=== PATIENT | female | born 1970 | race Caucasian/White ===

== ENCOUNTER 2020-11-22 14:23 | Emergency (ER) | payer SELFPAY ==
[2020-11-22] MEDS ORDERED: Sodium Chloride 0.9% 1,000 ML IV ONE (14:40)
[2020-11-22] MEDS ORDERED: Ondansetron 4 MG/2 ML SDV IVPUSH ONE (14:40)
--- NOTE | 2020-11-22 15:14 | EDM.PDOC ---
ED HPI GENERAL MEDICAL PROBLEM - General Chief Complaint: Gastrointestinal Problem Stated Complaint: COVID POS UNABLE TO EAT VOMITTING Time Seen by Provider: 11/22/20 14:27 Source of Information: Reports: Patient History Limitations: Reports: No Limitations - History of Present Illness INITIAL COMMENTS - FREE TEXT/NARRATIVE: HISTORY AND PHYSICAL: History of present illness: Patient is a 50-year-old female who presents to the emergency room with complaints of nausea, vomiting and diarrhea over the past 4 to 5 days. Patient was diagnosed with COVID-19 on 11/17/2020 at [facility]. Since that time she states she has not been able to keep anything down and is concerned she is dehydrated. She also has noted left ear pain over the past few hours. Patient denies any fever, chills, headache, change in vision, syncope or near syncope. Denies any chest pain, back pain, shortness of breath or hemoptysis. Denies any abdominal pain, constipation or dysuria. Has not noted any blood in urine or stool. States her whole household has COVID-19, has been quarantining at home. Review of systems: As per history of present illness and below otherwise all systems reviewed and negative. Past medical history: As per history of present illness and as reviewed below otherwise noncontributory. Surgical history: As per history of present illness and as reviewed below otherwise noncontributory. Social history: See social history for further information Family history: As per history of present illness and as reviewed below otherwise noncontributory. Physical exam: General: Well developed and well nourished 50 year old female. Alert and orientated x 3. Nontoxic in appearance and in no acute distress. Vital signs are stable and have been reviewed by me. Nursing notes were reviewed. HEENT: Atraumatic, normocephalic, pupils equal and reactive bilaterally, negative for conjunctival pallor or scleral icterus, mucous membranes moist, left TMs has purulent drainage noted, unable to visualize the TM from the 10:00 to 4 o'clock position which is erythematous. Right TM normal, throat clear, neck supple, nontender, trachea midline. No drooling or trismus noted. No meningeal signs. No hot potato voice noted. Lungs: Clear to auscultation bilaterally. No wheezes, rales, or rhonchi. Chest nontender. Normal work of breathing, no accessory muscles used. Heart: S1S2, regular rate and rhythm without overt murmur, gallops, or rubs. No JVD. No peripheral edema Abdomen: Soft, nondistended, nontender. Normoactive bowel sounds. Negative for masses or costovertebral tenderness. Skin: Intact, warm, dry. No lesions or rashes noted. Hematologic: No petechiae or purpra. Mucosa appropriate color and normal nail bed color and refill. Extremities: Atraumatic, moves all extremities per self without difficulty or deficits, negative for cords or calf pain. Neurovascular unremarkable. Neuro: Awake, alert, oriented. Cranial nerves II through XII unremarkable. Cerebellum unremarkable. Motor and sensory unremarkable throughout. Exam nonfocal. Psychiatric: Mood and affect are appropriate. Normal thought process. Answering questions appropriately. Please note that the patient was seen and evaluated during the 2019 SARS-CoV-2 novel coronavirus pandemic period. Community viral transmission is ongoing at time of this encounter and the emergency department is operating under pandemic response procedures. Medical Decision Making: Patient is a 50-year-old female who presents to the emergency room with complaints of nausea, vomiting and diarrhea with a known positive COVID-19 test. She states she has not been able to keep anything down and is concerned she is dehydrated. We will do basic lab work and give her some IV fluids and Zofran while labs are pending. Chest x-ray is unremarkable. BUN and creatinine are slightly elevated, she did receive IV fluids while here. Vital signs are stable. She would like to be treated for the left otitis media, will give Augmentin. She was able to keep fluids down during the PO challenge. I have talked with the patient about today's findings, in addition to providing specific details for plan of care. Reassessment at the time of disposition demonstrates that the patient is in no acute distress. The patient is stable for discharge, counseling was provided and we discussed in great detail signs and symptoms that would prompt them to return to the Emergency Department. Medication, follow up and supportive care measures were reviewed and discussed. Voices understanding and is agreeable to plan of care. Denies any further questions or concerns at this time. Diagnostics: CBC, CMP, UA, CXR Therapeutics: IV fluids, Zofran Prescription: Augmentin, Zofran Impression: COVID-19 gastroenteritis Otitis media, left Plan: 1. Your chest x-ray and lab work are within normal limits. You do have an ear infection on the left, please take the antibiotic as prescribed. Your prescriptions have been sent to [facility]. Your vital signs and oxygen saturation are well enough that you were able to monitor your symptoms at home. Continue to monitor for trouble breathing, new confusion or inability to arou se, bluish lips or face or any of the other symptoms we discussed -if this occurs please return to the emergency room immediately. 2. Zofran 4 mg, 1 tab every 6 hours as needed for nausea. We have dispensed 2 tabs here that you can take until you are able to get to the pharmacy. Small frequent sips of fluids to prevent dehydration. 3. You can take NyQuil during the evening to help get a restful night sleep. May alternate Tylenol and ibuprofen as needed for pain and fever management. 4. The [facility] department will be calling you and following up with you. The [place] [facility] Hotline phone number , They are open Friday - Friday 7am - 7pm. Follow up with your primary care provider for re-evaluation as directed. Definitive disposition and diagnosis as appropriate pending reevaluation and review of above. Generalized Pain Score (Numeric/FACES): 8 - Related Data Allergies Allergy/AdvReac Type Severity Reaction Status Date / Time duloxetine Allergy Hypertensio Verified 11/22/20 14:46 n gabapentin Allergy Swelling Verified 11/22/20 14:46 povidone-iodine Allergy Swelling Verified 11/22/20 14:46 [From Betadine] pregabalin [From Lyrica] Allergy Swelling Verified 11/22/20 14:46 soap [From Betadine] Allergy Swelling Verified 11/22/20 14:46 Home Meds: Home Meds Amoxicillin/Clavulanate K [Augmentin 875-125 MG] 1 tab PO BID 7 Days #14 tablet 11/22/20 [Rx] Ondansetron [Zofran ODT] 4 mg PO Q6H PRN #8 tab.dis 11/22/20 [Rx] Past Medical History - Past Health History Medical/Surgical History: Denies Medical/Surgical History HEENT History: Reports: Other (See Below) Other HEENT History: wears glasses Cardiovascular History: Reports: None Respiratory History: Reports: Asthma Other Respiratory History: seasonal asthma Genitourinary History: Reports: None 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: Neurological History: Reports: None Psychiatric History: Reports: None Endocrine/Metabolic History: Reports: Obesity/BMI 30+ Hematologic History: Reports: None Immunologic History: Reports: None Oncologic (Cancer) History: Reports: None Dermatologic History: Reports: None - Infectious Disease History Infectious Disease History: Reports: Chicken Pox - Past Surgical History Head Surgeries/Procedures: Reports: None HEENT Surgical History: Reports: Tonsillectomy GI Surgical History: Reports: Cholecystectomy Female Surgical History: Reports: Tubal Ligation Musculoskeletal Surgical History: Reports: Arthroscopic Knee Social & Family History - Family History Family Medical History: No Pertinent Family History - Tobacco Use Tobacco Use Status *Q: Former Tobacco User Years of Tobacco use: 25 Used Tobacco, but Quit: Yes Month/Year Tobacco Last Used: 09/2004 - Caffeine Use Caffeine Use: Reports: Soda - Recreational Drug Use Recreational Drug Use: No ED ROS GENERAL - Review of Systems Review Of Systems: Comprehensive ROS is negative, except as noted in HPI. ED EXAM, GI/ABD - Physical Exam Exam: See Below (See dictation) Course - Vital Signs Last Recorded V/S: Last Vital Signs Temp 97.8 F 11/22/20 14:40 Pulse 87 11/22/20 16:35 Resp 16 11/22/20 16:35 BP 121/78 11/22/20 16:35 Pulse Ox 94 L 11/22/20 16:35 - Orders/Labs/Meds Labs: Laboratory Tests 11/22/20 11/22/20 11/22/20 Range/Units 15:07 15:07 15:07 WBC 7.50 (4.0-11.0) K/uL RBC 5.30 (4.30-5.90) M/uL Hgb 16.9 H (12.0-16.0) g/dL Hct 47.4 H (36.0-46.0) % MCV 89.4 (80.0-98.0) fL MCH 31.9 (27.0-32.0) pg MCHC 35.7 (31.0-37.0) g/dL RDW Std Deviation 41.2 (28.0-62.0) fl RDW Coeff of Noe 13 (11.0-15.0) % Plt Count 131 L (150-400) K/uL MPV 11.60 (7.40-12.00) fL Neut % (Auto) 70.9 (48.0-80.0) % Lymph % (Auto) 22.3 (16.0-40.0) % [place] % (Auto) 6.7 (0.0-15.0) % Eos % (Auto) 0.0 (0.0-7.0) % Baso % (Auto) 0.1 (0.0-1.5) % Neut # (Auto) 5.3 (1.4-5.7) K/uL Lymph # (Auto) 1.7 (0.6-2.4) K/uL [place] # (Auto) 0.5 (0.0-0.8) K/uL Eos # (Auto) 0.0 (0.0-0.7) K/uL Baso # (Auto) 0.0 (0.0-0.1) K/uL Nucleated RBC % 0.0 /100WBC Nucleated RBCs # 0 K/uL Sodium 140 (136-145) mmol/L Potassium 3.5 (3.5-5.1) mmol/L Chloride 102 (98-107) mmol/L Carbon Dioxide 20.6 L (21.0-32.0) mmol/L BUN 29 H (7.0-18.0) mg/dL Creatinine 2.0 H (0.6-1.0) mg/dL Est Cr Clr Drug Dosing 22.85 mL/min Estimated GFR (MDRD) 26.5 ml/min Glucose 111 H (74-106) mg/dL Lactic Acid 1.8 (0.4-2.0) mmol/L Calcium 8.4 L (8.5-10.1) mg/dL Total Bilirubin 0.6 (0.2-1.0) mg/dL AST 36 (15-37) IU/L ALT 27 (14-63) IU/L Alkaline Phosphatase 78 (46-116) U/L Total Protein 7.8 (6.4-8.2) g/dL Albumin 3.6 (3.4-5.0) g/dL Globulin 4.2 H (2.6-4.0) g/dL Albumin/Globulin Ratio 0.9 (0.9-1.6) Lipase 154 (73-393) U/L Meds: Medications Discontinued Medications Generic Name Dose Route Start Last Admin Trade Name Freq PRN Reason Stop Dose Admin Amoxicillin/Clavulanate Potassium 1 tab 11/22/20 17:10 Amoxicillin/Clavulanate K 875-125 Mg Tab PO 11/22/20 17:11 ONETIME ONE Sodium Chloride 1,000 mls @ 999 mls/hr 11/22/20 14:40 11/22/20 15:06 Normal Saline IV 11/22/20 15:40 999 mls/hr STAT ONE Administration Ondansetron HCl 4 mg 11/22/20 14:40 11/22/20 15:07 Ondansetron 4 Mg/2 Ml Sdv IVPUSH 11/22/20 14:41 4 mg ONETIME ONE Administration Ondansetron HCl 8 mg 11/22/20 17:13 Ondansetron 4 Mg Tab.Dis PO 11/22/20 17:14 ONETIME ONE Departure - Departure Time of Disposition: 17:23 Disposition: Home, Self-Care 01 Clinical Impression: Gastroenteritis due to COVID-19 virus Otitis media Qualifiers: Otitis media type: suppurative Chronicity: acute Laterality: left Recurrence: non-recurrent Spontaneous tympanic membrane rupture: without spontaneous rupture Qualified Code(s): H66.002 - Acute suppurative otitis media without spontaneous rupture of ear drum, left ear - Discharge Information Prescriptions: Amoxicillin/Clavulanate K [Augmentin 875-125 MG] 1 tab PO BID 7 Days #14 tablet Ondansetron [Zofran ODT] 4 mg PO Q6H PRN #8 tab.dis PRN Reason: Nausea Referrals: PCP,None [Primary Care Provider] - Forms: ED Department Discharge Additional Instructions: The following information is given to patients seen in the emergency department who are being discharged to home. This information is to outline your options for follow-up care. We provide all patients seen in our emergency department with a follow-up referral. The need for follow-up, as well as the timing and circumstances, are variable depending upon the specifics of your emergency department visit. If you don't have a primary care physician on staff, we will provide you with a referral. We always advise you to contact your personal physician following an emergency department visit to inform them of the circumstance of the visit and for follow-up with them and/or the need for any referrals to a consulting specialist. The emergency department will also refer you to a specialist when appropriate. This referral assures that you have the opportunity for follow-up care with a specialist. All of these measure are taken in an effort to provide you with optimal care, which includes your follow-up. Under all circumstances we always encourage you to contact your private physician who remains a resource for coordinating your care. When calling for follow-up care, please make the office aware that this follow-up is from your recent emergency room visit. If for any reason you are refused follow-up, please contact the [facility] Emergency Department at and asked to speak to the emergency department charge nurse. [facility] [address] [place] [id number] [id number] Thank you for choosing the [facility] emergency department in [place] for your medical needs today. It was a pleasure caring for you. Today you were seen in the emergency department for nausea, vomiting and diarrhea due to COVID-19. 1. Your chest x-ray and lab work are within normal limits. You do have an ear infection on the left, please take the antibiotic as prescribed. Your prescriptions have been sent to [facility]. Your vital signs and oxygen saturation are well enough that you were able to monitor your symptoms at home. Continue to monitor for trouble breathing, new confusion or inability to arouse, bluish lips or face or any of the other symptoms we discussed -if this occurs please return to the emergency room immediately. 2. Zofran 4 mg, 1 tab every 6 hours as needed for nausea. We have dispensed 2 tabs here that you can take until you are able to get to the pharmacy. Small frequent sips of fluids to prevent dehydration. 3. You can take NyQuil during the evening to help get a restful night sleep. May alternate Tylenol and ibuprofen as needed for pain and fever management. 4. The [facility] department will be calling you and following up with you. The [place] [facility] Hotline phone number , They are open Friday - Friday 7am - 7pm. Follow up with your primary care provider for re-evaluation as directed. Sepsis Event Note (ED) - Evaluation Sepsis Screening Result: No Definite Risk - Focused Exam Vital Signs: Vital Signs Temp Pulse Resp BP Pulse Ox 11/22/20 16:35 87 16 121/78 94 L 11/22/20 14:40 97.8 F 108 H 20 124/78 96
--- NOTE | 2020-11-22 15:29 | CR ---
INDICATION: COVID TECHNIQUE: Chest 1 view. COMPARISON: None FINDINGS: Cardiovascular and mediastinum: Heart size and vasculature are normal in caliber and appearance. Mediastinum is within normal limits. Lungs and pleural space: Lungs are clear. No sign of infiltrate or mass. No sign of pleural effusion. No pneumothorax. Bones and soft tissues: No significant findings. IMPRESSION: No definitive infiltrates. Dictated by Sea Mueller MD @ 11/22/2020 3:28:11 PM (Electronically Signed)
[2020-11-22 16:35] VITALS: PULSE 87
[2020-11-22 16:43] LABS: CARBON DIOXIDE,CO2 20.6 mmol/L (21.0-32.0); POTASSIUM,K 3.5 mmol/L (3.5-5.1)
[2020-11-22] MEDS ORDERED: Amoxicillin/Clavulanate K 875-125 MG Tab PO ONE (17:10)
[2020-11-22] MEDS ORDERED: Ondansetron 4 MG Tab.DIS PO ONE (17:13)
[2020-11-22 17:36] VITALS: BP 122/62
== END 2020-11-22 17:37 | disposition home or self-care (01) ==
LOC: MW.ED 14:23
DX: U07.1 COVID-19 (principal); K52.9 Noninfective gastroenteritis and colitis, unspecified; H66.002 Acute suppurative otitis media without spontaneous rupture of ear drum, left ear; J45.909 Unspecified asthma, uncomplicated; E66.9 Obesity, unspecified; Z68.1 Body mass index [BMI] 19.9 or less, adult; Z87.891 Personal history of nicotine dependence; Z88.8 Allergy status to other drugs, medicaments and biological substances
CPT/HCPCS: 36415; 71045; 80053; 83605; 83690; 85025; 96374; 99284; A9270; J2405; J7030

== ENCOUNTER 2020-11-27 16:37 | Inpatient (IN) | payer SELFPAY ==
[2020-11-27] MEDS ORDERED: Sodium Chloride 0.9% 1,000 ML IV ONE (16:47)
[2020-11-27] MEDS ORDERED: Dexamethasone 10 MG/ML SDV IVPUSH ONE (16:48)
[2020-11-27] MEDS ORDERED: Albuterol/Ipratropium 3.0-0.5 MG/3 ML Neb Soln NEB ONE ×3 (16:49)
[2020-11-27] MEDS ORDERED: Magnesium Sulfate (4.06 MEQ/ML) 5 GM/10 ML SDV IV STA (16:53)
[2020-11-27] MEDS ORDERED: WATER IV STA ×2 (16:56)
[2020-11-27] MEDS ORDERED: DEXTROSE 5% IV STA ×2 (16:56)
[2020-11-27] MEDS ORDERED: MAGNESIUM SULFATE IV STA ×2 (16:56)
--- NOTE | 2020-11-27 17:25 | PCM.EKG ---
#1 Interpretation EKG Date: 11/27/20 Time: 16:36 Rhythm: NSR Rate (Beats/Min): 120 [place]: Normal P-Wave: Present QRS: Normal ST-T: Normal QT: Normal Comparison: NA - No Prior EKG EKG Interpretation Comments: Sinus tachycardia with nonspecific T wave inversion
[2020-11-27 17:41] LABS: BLOOD UREA NITROGEN,BUN 20 mg/dL (7.0-18.0); CARBON DIOXIDE,CO2 29.5 mmol/L (21.0-32.0); CHLORIDE,CL 101 mmol/L (98-107); GLUCOSE RANDOM 137 mg/dL (74-106); POTASSIUM,K 3.5 mmol/L (3.5-5.1); SODIUM,NA 143 mmol/L (136-145)
[2020-11-27] MEDS ORDERED: Iopamidol 755 MG/ML 500 ML Multipack Bottle IVPUSH STA (18:18)
--- NOTE | 2020-11-27 18:53 | EDM.PDOC ---
ED HPI GENERAL MEDICAL PROBLEM - General Chief Complaint: Respiratory Problem Stated Complaint: EMS Time Seen by Provider: 11/27/20 16:38 Source of Information: Reports: Patient History Limitations: Reports: No Limitations - History of Present Illness INITIAL COMMENTS - FREE TEXT/NARRATIVE: HISTORY AND PHYSICAL: History of present illness: Patient is a 50-year-old female, with a history of known Covid diagnosis since 11/17/2020, who presents emergency room today with concern of worsening shortness of breath and weakness. Patient states that she has felt bad since her Covid diagnosis but states today she is so weak and short of breath that she cannot take care of herself so called EMS. Patient states that she does have a history of asthma but has not been using her inhalers and does not feel that this will help her. Patient also has a history of obesity. Patient denies fever, chills, chest pain. Denies headache, neck stiff ness, change in vision, syncope, or near syncope. Denies vomiting, abdominal pain, diarrhea, constipation, or dysuria. Has not noted any blood in urine or stool. Review of systems: As per history of present illness and below otherwise all systems reviewed and negative. Past medical history: As per history of present illness and as reviewed below otherwise noncontributory. Surgical history: As per history of present illness and as reviewed below otherwise noncontributory. Social history: See social history for further information Family history: As per history of present illness and as reviewed below otherwise noncontributo ry. Physical exam: General: Patient is alert, oriented. Patient is tachypneic with a respiratory rate of 30, 78% on room air, heart rate 122 upon arrival to the ED, in moderate respiratory distress. HEENT: Atraumatic, normocephalic, pupils equal and reactive bilaterally, negative for conjunctival pallor or scleral icterus, mucous membranes dry, throat clear, neck supple, nontender, trachea midline. No drooling or trismus noted. No meningeal signs. No hot potato voice noted. Lungs: Diffuse wheezing to auscultation throughout all lung [place], breath sounds equal bilaterally, chest nontender. Patient speaking 2-3 words with breathlessness, no stridor, using intercostal retractions and accessory muscle use with moderate respiratory distress. Heart: Tachycardic. Otherwise, S1S2, regular rate and rhythm without overt murmur Abdomen: Soft, nondistended, nontender. Negative for masses or hepatosplenomegaly. Negative for costovertebral tenderness. Pelvis: Stable nontender. Genitourinary: Deferred. Rectal: Deferred. Skin: Intact, warm, dry. No lesions or rashes noted. Extremities: Atraumatic, negative for cords or calf pain. Neurovascular unremarkable. Neuro: Awake, alert, oriented. Cranial nerves II through XII unremarkable. Cerebellum unremarkable. Motor and sensory unremarkable throughout. Exam nonfocal. Notes: Patient is a 50-year-old female, with a known diagnosis of COVID-19 since 11/17/2020, and a history of asthma and obesity, who presents emergency room today secondary to worsening shortness of breath and weakness. Upon arrival to the ED, patient is a moderate respiratory distress with a respiratory rate of 30, toxic with 78% on room air, and tachycardic 122 on exam. Blood pressure stable. Patient is speaking 2-3 word sentences with breathlessness and using accessory muscles and intercostal retractions on exam suggesting moderate respiratory distress. Patient was initially transferred to 6 L nasal cannula and approximately 85%. She was then quickly transitioned to a simple mask and rate at 90%. Patient was then transferred to high flow nasal cannula and satting 96%. Will obtain cardiac evaluation, provide fluid bolus, continuous DuoNeb, Decadron, magnesium given patient's underlying asthma. We will also obtain angiography chest to rule out pulmonary embolism given hypoxia with tachycardia and known COVID-19 diagnosis. Will reassess patient following nebulizers. Upon reevaluation of patient following nebulizer, she does have improvement of her wheezing and her respiratory rate is not 23, she is 97% on high flow nasal cannula, and heart rate has improved to 113. See Dr. Hutchinson's dictation for specific EKG interpretation. However, sinus tachycardia without STEMI. CBC does show a mild leukocytosis of 11.68, hemoglobin and hematocrit mildly elevated at 16.5 and 47.9 suggestive of possible hemoconcentration. ABG does show a metabolic alkalosis with a pH of 7.49, PCO2 normal at 37, bicarb mildly elevated at 28. We will add a salicylate level on due to this. CMP does show a mild elevation of creatinine and BUN at 1.2 and 20 respectively, possible suggestive of dehydration. Glucose mildly elevated at 137. AST elevated in isolation at 46. Troponin negative. Salicylate 0.6 which within normal limits. And CT shows moderately severe COVID-19 pneumonia. No pulmonary embolism. Upon reevaluation of patient, she is much more comfortable on high flow nasal cannula and heart rate has improved to 90 bpm, respiratory rate of 20, and oxygen 96%. I did call and speak to the hospitalist on-call, Dr. Nelson, and thoroughly discussed patient's case. Will admit to inpatient telemetry to Dr. Nelson Voices understanding and is agreeable to plan of care. Denies any further questions or concerns at this time. Diagnostics: EKG, CBC, CMP, ABG, troponin, salicylate, angiography chest, magnesium, phosphate Therapeutics: DuoNeb x3, high flow nasal cannula, Decadron, magnesium IV, remdesivir Impression: COVID-19 viral infection with hypoxia Acute respiratory failure, on high flow nasal cannula Plan: Admit to inpatient to Dr. Nelson on telemetry Definitive disposition and diagnosis as appropriate pending reevaluation and review of above. generalized Pain Score (Numeric/FACES): 10 - Related Data Allergies Allergy/AdvReac Type Severity Reaction Status Date / Time duloxetine Allergy Hypertensio Verified 11/22/20 14:46 n gabapentin Allergy Swelling Verified 11/22/20 14:46 povidone-iodine Allergy Swelling Verified 11/22/20 14:46 [From Betadine] pregabalin [From Lyrica] Allergy Swelling Verified 11/22/20 14:46 soap [From Betadine] Allergy Swelling Verified 11/22/20 14:46 Home Meds: Home Meds Amoxicillin/Clavulanate K [Augmentin 875-125 MG] 1 tab PO BID 7 Days #14 tablet 11/22/20 [Rx] Ondansetron [Zofran ODT] 4 mg PO Q6H PRN #8 tab.dis 11/22/20 [Rx] Past Medical History - Past Health History Medical/Surgical History: Denies Medical/Surgical History HEENT History: Reports: Other (See Below) Other HEENT History: wears glasses Cardiovascular History: Reports: None Respiratory History: Reports: Asthma Other Respiratory History: seasonal asthma Genitourinary History: Reports: None [employer] History: Reports: Neurological History: Reports: None Psychiatric History: Reports: None Endocrine/Metabolic History: Reports: Obesity/BMI 30+ Hematologic History: Reports: None Immunologic History: Reports: None Oncologic (Cancer) History: Reports: None Dermatologic History: Reports: None - Infectious Disease History Infectious Disease History: Reports: Chicken Pox, Novel Coronavirus - Past Surgical History Head Surgeries/Procedures: Reports: None HEENT Surgical History: Reports: Tonsillectomy GI Surgical History: Reports: Cholecystectomy Female Surgical History: Reports: Tubal Ligation Musculoskeletal Surgical History: Reports: Arthroscopic Knee Social & Family History - Family History Family Medical History: No Pertinent Family History - Caffeine Use Caffeine Use: Reports: Soda ED ROS GENERAL - Review of Systems Review Of Systems: Comprehensive ROS is negative, except as noted in HPI. ED EXAM, GENERAL - Physical Exam Exam: See Below (see dictation) Course - Vital Signs Last Recorded V/S: Last Vital Signs Temp 97.3 F 11/27/20 16:37 Pulse 96 11/27/20 19:23 Resp 23 H 11/27/20 18:42 BP 165/97 H 11/27/20 19:23 Pulse Ox 94 L 11/27/20 19:23 - Orders/Labs/Meds Orders: Active Orders 24 hr Category Date Time Status Admission Status [Patient Status] [ADT] Stat ADT 11/27/20 19:51 Active Cardiac Monitoring [RC] . DIRECTED Care 11/27/20 16:47 Active RT Aerosol Therapy [RC] ASDIRECTED Care 11/27/20 16:49 Active RT Aerosol Therapy [RC] ASDIRECTED Care 11/27/20 16:49 Active RT Aerosol Therapy [RC] ASDIRECTED Care 11/27/20 16:49 Active UA RFX PHILLIP AND CULT IF INDIC [URIN] Stat Lab 11/27/20 19:45 Received Labs: Laboratory Tests 11/27/20 11/27/20 11/27/20 Range/Units 16:55 16:55 16:55 WBC 11.68 H (4.0-11.0) K/uL RBC 5.34 (4.30-5.90) M/uL Hgb 16.5 H (12.0-16.0) g/dL Hct 47.9 H (36.0-46.0) % MCV 89.7 (80.0-98.0) fL MCH 30.9 (27.0-32.0) pg MCHC 34.4 (31.0-37.0) g/dL RDW Std Deviation 39.7 (28.0-62.0) fl RDW Coeff of Noe 12 (11.0-15.0) % Plt Count 311 (150-400) K/uL MPV 10.10 (7.40-12.00) fL Neut % (Auto) 83.1 H (48.0-80.0) % Lymph % (Auto) 11.4 L (16.0-40.0) % [place] % (Auto) 5.3 (0.0-15.0) % Eos % (Auto) 0.0 (0.0-7.0) % Baso % (Auto) 0.2 (0.0-1.5) % Neut # (Auto) 9.7 H (1.4-5.7) K/uL Lymph # (Auto) 1.3 (0.6-2.4) K/uL [place] # (Auto) 0.6 (0.0-0.8) K/uL Eos # (Auto) 0.0 (0.0-0.7) K/uL Baso # (Auto) 0.0 (0.0-0.1) K/uL ABG pH (7.35-7.45) ABG pCO2 (35-45) mmHG ABG pO2 (80-105) mmHG ABG HCO3 (22-26) mEq/L ABG Total CO2 (23-27) mmol/L ABG Base Excess (-2.0-3.0) Sodium 143 (136-145) mmol/L Potassium 3.5 (3.5-5.1) mmol/L Chloride 101 (98-107) mmol/L Carbon Dioxide 29.5 (21.0-32.0) mmol/L BUN 20 H (7.0-18.0) mg/dL Creatinine 1.2 H (0.6-1.0) mg/dL Est Cr Clr Drug Dosing TNP Estimated GFR (MDRD) 47.7 ml/min Glucose 137 H (74-106) mg/dL Calcium 8.2 L (8.5-10.1) mg/dL Phosphorus (2.6-4.7) mg/dL Magnesium (1.8-2.4) mg/dL Total Bilirubin 0.7 (0.2-1.0) mg/dL AST 46 H (15-37) IU/L ALT 25 (14-63) IU/L Alkaline Phosphatase 81 (46-116) U/L Troponin I < 0.050 (0.000-0.056) ng/mL Total Protein 7.9 (6.4-8.2) g/dL Albumin 3.0 L (3.4-5.0) g/dL Globulin 4.9 H (2.6-4.0) g/dL Albumin/Globulin Ratio 0.6 L (0.9-1.6) Salicylates 0.6 (0-20) mg/dL 11/27/20 11/27/20 Range/Units 17:03 18:55 WBC (4.0-11.0) K/uL RBC (4.30-5.90) M/uL Hgb (12.0-16.0) g/dL Hct (36.0-46.0) % MCV (80.0-98.0) fL MCH (27.0-32.0) pg MCHC (31.0-37.0) g/dL RDW Std Deviation (28.0-62.0) fl RDW Coeff of Noe (11.0-15.0) % Plt Count (150-400) K/uL MPV (7.40-12.00) fL Neut % (Auto) (48.0-80.0) % Lymph % (Auto) (16.0-40.0) % [place] % (Auto) (0.0-15.0) % Eos % (Auto) (0.0-7.0) % Baso % (Auto) (0.0-1.5) % Neut # (Auto) (1.4-5.7) K/uL Lymph # (Auto) (0.6-2.4) K/uL [place] # (Auto) (0.0-0.8) K/uL Eos # (Auto) (0.0-0.7) K/uL Baso # (Auto) (0.0-0.1) K/uL ABG pH 7.49 H (7.35-7.45) ABG pCO2 37 (35-45) mmHG ABG pO2 59 L (80-105) mmHG ABG HCO3 28 H (22-26) mEq/L ABG Total CO2 23.7 (23-27) mmol/L ABG Base Excess 4.5 H (-2.0-3.0) Sodium (136-145) mmol/L Potassium (3.5-5.1) mmol/L Chloride (98-107) mmol/L Carbon Dioxide (21.0-32.0) mmol/L BUN (7.0-18.0) mg/dL Creatinine (0.6-1.0) mg/dL Est Cr Clr Drug Dosing Estimated GFR (MDRD) ml/min Glucose (74-106) mg/dL Calcium (8.5-10.1) mg/dL Phosphorus 3.3 (2.6-4.7) mg/dL Magnesium 2.2 (1.8-2.4) mg/dL Total Bilirubin (0.2-1.0) mg/dL AST (15-37) IU/L ALT (14-63) IU/L Alkaline Phosphatase (46-116) U/L Troponin I (0.000-0.056) ng/mL Total Protein (6.4-8.2) g/dL Albumin (3.4-5.0) g/dL Globulin (2.6-4.0) g/dL Albumin/Globulin Ratio (0.9-1.6) Salicylates (0-20) mg/dL Meds: Medications Discontinued Medications Generic Name Dose Route Start Last Admin Trade Name Freq PRN Reason Stop Dose Admin Albuterol/Ipratropium 3 ml 11/27/20 16:49 11/27/20 16:59 Albuterol/Ipratropium 3.0-0.5 Mg/3 Ml Neb Soln NEB 11/27/20 16:50 3 ml ONETIME ONE Administration Albuterol/Ipratropium 3 ml 11/27/20 16:49 11/27/20 16:59 Albuterol/Ipratropium 3.0-0.5 Mg/3 Ml Neb Soln NEB 11/27/20 16:50 3 ml ONETIME ONE Administration Albuterol/Ipratropium 3 ml 11/27/20 16:49 11/27/20 16:59 Albuterol/Ipratropium 3.0-0.5 Mg/3 Ml Neb Soln NEB 11/27/20 16:50 3 ml ONETIME ONE Administration Dexamethasone 10 mg 11/27/20 16:48 11/27/20 17:09 Dexamethasone 10 Mg/Ml Sdv IVPUSH 11/27/20 16:49 10 mg ONETIME ONE Administration Sodium Chloride 1,000 mls @ 999 mls/hr 11/27/20 16:47 11/27/20 16:58 Normal Saline IV 11/27/20 17:47 999 mls/hr BOLUS ONE Administration Magnesium Sulfate 3 gm/ 106 mls @ 212 mls/hr 11/27/20 16:56 11/27/20 17:13 Dextrose/Water IV 11/27/20 17:25 212 mls/hr STAT STA Administration Remdesivir 200 mg/ Sodium 250 mls @ 250 mls/hr 11/27/20 19:50 Chloride IV 11/27/20 19:51 ONETIME ONE Iopamidol 100 ml 11/27/20 18:18 Iopamidol 755 Mg/Ml 500 Ml Multipack Bottle IVPUSH 11/27/20 18:19 ONETIME STA Departure - Departure Time of Disposition: 20:03 Disposition: Admitted As Inpatient 67 Clinical Impression: COVID-19 virus infection, Hypoxia Acute respiratory failure Qualifiers: Respiratory failure complication: hypoxia Qualified Code(s): J96.01 - Acute respiratory failure with hypoxia - Discharge Information Forms: ED Department Discharge Sepsis Event Note (ED) - Evaluation Sepsis Screening Result: No Definite Risk - Focused Exam Vital Signs: Vital Signs Temp Pulse Resp BP Pulse Ox 11/27/20 19:23 96 165/97 H 94 L 11/27/20 18:59 109 H 143/74 H 97 11/27/20 18:42 113 H 23 H 143/74 H 95 11/27/20 18:20 114 H 93 L 11/27/20 17:04 116 H 130/85 92 L 11/27/20 16:37 97.3 F 122 H 30 H 130/85 78 L - My Orders Last 24 Hours: My Active Orders 11/27/20 16:47 Cardiac Monitoring [RC] . DIRECTED 11/27/20 16:49 RT Aerosol Therapy [RC] ASDIRECTED RT Aerosol Therapy [RC] ASDIRECTED RT Aerosol Therapy [RC] ASDIRECTED 11/27/20 19:45 UA RFX PHILLIP AND CULT IF INDIC [URIN] Stat 11/27/20 19:51 Admission Status [Patient Status] [ADT] Stat - Assessment/Plan Last 24 Hours: My Active Orders 11/27/20 16:47 Cardiac Monitoring [RC] . DIRECTED 11/27/20 16:49 RT Aerosol Therapy [RC] ASDIRECTED RT Aerosol Therapy [RC] ASDIRECTED RT Aerosol Therapy [RC] ASDIRECTED 11/27/20 19:45 UA RFX PHILLIP AND CULT IF INDIC [URIN] Stat 11/27/20 19:51 Admission Status [Patient Status] [ADT] Stat
--- NOTE | 2020-11-27 19:29 | CT ---
CT CHEST WITH CONTRAST TECHNIQUE: Multidetector CT imaging was performed through the chest following intravenous contrast administration using 100 mL Isovue 370. Coronal and sagittal reconstructions were generated. COMPARISON: None. FINDINGS: Lungs and airways: Multiple scattered areas of patchy ground-glass opacity and consolidation throughout both lungs, consistent with moderately severe COVID-19 pneumonia. Central airways are patent. Pleura and pleural spaces: No pleural effusions or pneumothorax. Heart and mediastinum: Normal heart size. No significant pericardial effusion. A few mildly enlarged mediastinal and right hilar lymph nodes, likely reactive. Vascular structures: No filling defects in the pulmonary arterial tree to suggest pulmonary emboli. Normal caliber thoracic aorta. Chest wall and axillae: No mass or axillary lymphadenopathy. Osseous structures: Normal for age. No acute fractures identified. Upper abdomen: Status post cholecystectomy. IMPRESSION: 1. Moderately severe COVID-19 pneumonia. 2. No pulmonary emboli identified. LUIS ALBERTO ESTRADA MD [facility] Dictated by Glenroy Estrada MD @ 11/27/2020 7:24:20 PM Please note that all CT scans at this facility use dose modulation, iterative reconstruction, and/or weight-based dosing when appropriate to reduce radiation dose to as low as reasonably achievable. Dictated by: Glenroy Estrada MD @ 11/27/2020 19:27:35 (Electronically Signed)
[2020-11-27] MEDS ORDERED: REMDESIVIR 200 MG in Sodium Chloride 0.9% 250 ML IV ONE (19:50)
--- NOTE | 2020-11-27 23:57 | PCM.HP.2 ---
H&P History of Present Illness - General Date of Service: 11/28/20 Admit Problem/Dx: Admission Diagnosis/Problem Admission Diagnosis/Problem Hypoxia - History of Present Illness Initial Comments - Free Text/Narative: 50 yo female with pmh of asthma who tested poasitive for COVID on November 17. She reports increasing shortness of breath, cough, chest congestion, diarrhea and nausea. She was noted to be satting mid 70s on room air. She was placed on Heated high flow to keep sats above 90%. CT angiogram reported moderately severe COVID pneumonia and no PE. generalized Pain Score (Numeric/FACES): 10 - Related Data Allergies/Adverse Reactions: Allergies Allergy/AdvReac Type Severity Reaction Status Date / Time duloxetine Allergy Hypertensio Verified 11/27/20 23:31 n gabapentin Allergy Swelling Verified 11/27/20 23:31 povidone-iodine Allergy Swelling Verified 11/27/20 23:31 [From Betadine] pregabalin [From Lyrica] Allergy Swelling Verified 11/27/20 23:31 soap [From Betadine] Allergy Swelling Verified 11/27/20 23:31 Home Medications: Home Meds Amoxicillin/Clavulanate K [Augmentin 875-125 MG] 1 tab PO BID 7 Days #14 tablet 11/22/20 [Rx] Ondansetron [Zofran ODT] 4 mg PO Q6H PRN #8 tab.dis 11/22/20 [Rx] Past Medical History - Past Health History Medical/Surgical History: Denies Medical/Surgical History HEENT History: Reports: Other (See Below) Other HEENT History: wears glasses Cardiovascular History: Reports: None Respiratory History: Reports: Asthma Other Respiratory History: seasonal asthma Genitourinary History: Reports: None 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: Neurological History: Reports: None Psychiatric History: Reports: None Endocrine/Metabolic History: Reports: Obesity/BMI 30+ Hematologic History: Reports: None Immunologic History: Reports: None Oncologic (Cancer) History: Reports: None Dermatologic History: Reports: None - Infectious Disease History Infectious Disease History: Reports: Chicken Pox, Novel Coronavirus - Past Surgical History Head Surgeries/Procedures: Reports: None HEENT Surgical History: Reports: Tonsillectomy GI Surgical History: Reports: Cholecystectomy Female Surgical History: Reports: Tubal Ligation Musculoskeletal Surgical History: Reports: Arthroscopic Knee Social & Family History - Family History Family Medical History: No Pertinent Family History - Tobacco Use Tobacco Use Status *Q: Never Tobacco User - Caffeine Use Caffeine Use: Reports: Soda - Recreational Drug Use Recreational Drug Use: No H&P Review of Systems - Review of Systems: Review Of Systems: Comprehensive ROS is negative, except as noted in HPI. Exam - Exam Exam: See Below - Vital Signs Vital Signs: Last Vital Signs Temp 36.9 C 11/27/20 22:00 Pulse 90 11/27/20 22:00 Resp 23 H 11/27/20 22:00 BP 110/57 L 11/27/20 22:00 Pulse Ox 91 L 11/27/20 22:00 Weight: 92.17 kg - Exam General: Alert, Oriented HEENT: Mucosa Moist & [place] Lungs: Normal Respiratory Effort, Rhonchi Cardiovascular: Regular Rate, Regular Rhythm GI/Abdominal Exam: Normal Bowel Sounds, Soft, Non-Tender Extremities: Non-Tender, No Pedal Edema Skin: Warm, Dry, Intact Neurological: No: Focal Deficit - Patient Data Lab Results Last 24 hrs: Laboratory Results - last 24 hr 11/27/20 11/27/20 11/27/20 Range/Units 16:55 16:55 16:55 WBC 11.68 H (4.0-11.0) K/uL RBC 5.34 (4.30-5.90) M/uL Hgb 16.5 H (12.0-16.0) g/dL Hct 47.9 H (36.0-46.0) % MCV 89.7 (80.0-98.0) fL MCH 30.9 (27.0-32.0) pg MCHC 34.4 (31.0-37.0) g/dL RDW Std Deviation 39.7 (28.0-62.0) fl RDW Coeff of Noe 12 (11.0-15.0) % Plt Count 311 (150-400) K/uL MPV 10.10 (7.40-12.00) fL Neut % (Auto) 83.1 H (48.0-80.0) % Lymph % (Auto) 11.4 L (16.0-40.0) % [place] % (Auto) 5.3 (0.0-15.0) % Eos % (Auto) 0.0 (0.0-7.0) % Baso % (Auto) 0.2 (0.0-1.5) % Neut # (Auto) 9.7 H (1.4-5.7) K/uL Lymph # (Auto) 1.3 (0.6-2.4) K/uL [place] # (Auto) 0.6 (0.0-0.8) K/uL Eos # (Auto) 0.0 (0.0-0.7) K/uL Baso # (Auto) 0.0 (0.0-0.1) K/uL ABG pH (7.35-7.45) ABG pCO2 (35-45) mmHG ABG pO2 (80-105) mmHG ABG HCO3 (22-26) mEq/L ABG Total CO2 (23-27) mmol/L ABG Base Excess (-2.0-3.0) Sodium 143 (136-145) mmol/L Potassium 3.5 (3.5-5.1) mmol/L Chloride 101 (98-107) mmol/L Carbon Dioxide 29.5 (21.0-32.0) mmol/L BUN 20 H (7.0-18.0) mg/dL Creatinine 1.2 H (0.6-1.0) mg/dL Est Cr Clr Drug Dosing TNP Estimated GFR (MDRD) 47.7 ml/min Glucose 137 H (74-106) mg/dL Calcium 8.2 L (8.5-10.1) mg/dL Phosphorus (2.6-4.7) mg/dL Magnesium (1.8-2.4) mg/dL Total Bilirubin 0.7 (0.2-1.0) mg/dL AST 46 H (15-37) IU/L ALT 25 (14-63) IU/L Alkaline Phosphatase 81 (46-116) U/L Troponin I < 0.050 (0.000-0.056) ng/mL C-Reactive Protein (0.00-0.90) mg/dL Total Protein 7.9 (6.4-8.2) g/dL Albumin 3.0 L (3.4-5.0) g/dL Globulin 4.9 H (2.6-4.0) g/dL Albumin/Globulin Ratio 0.6 L (0.9-1.6) Urine Color Urine Appearance Urine pH (5.0-8.0) Ur Specific [place] (1.001-1.035) Urine Protein (NEGATIVE) mg/dL Urine Glucose (UA) (NEGATIVE) mg/dL Urine Ketones (NEGATIVE) mg/dL Urine Occult Blood (NEGATIVE) Urine Nitrite (NEGATIVE) Urine Bilirubin (NEGATIVE) Urine Urobilinogen (<2.0) EU/dL Ur Leukocyte Esterase (NEGATIVE) Urine RBC (0-2/HPF) Urine WBC (0-5/HPF) Ur Epithelial Cells (NONE-FEW) Urine Bacteria (NEGATIVE) Salicylates 0.6 (0-20) mg/dL 11/27/20 11/27/20 11/27/20 Range/Units 17:03 18:55 18:58 WBC (4.0-11.0) K/uL RBC (4.30-5.90) M/uL Hgb (12.0-16.0) g/dL Hct (36.0-46.0) % MCV (80.0-98.0) fL MCH (27.0-32.0) pg MCHC (31.0-37.0) g/dL RDW Std Deviation (28.0-62.0) fl RDW Coeff of Noe (11.0-15.0) % Plt Count (150-400) K/uL MPV (7.40-12.00) fL Neut % (Auto) (48.0-80.0) % Lymph % (Auto) (16.0-40.0) % [place] % (Auto) (0.0-15.0) % Eos % (Auto) (0.0-7.0) % Baso % (Auto) (0.0-1.5) % Neut # (Auto) (1.4-5.7) K/uL Lymph # (Auto) (0.6-2.4) K/uL [place] # (Auto) (0.0-0.8) K/uL Eos # (Auto) (0.0-0.7) K/uL Baso # (Auto) (0.0-0.1) K/uL ABG pH 7.49 H (7.35-7.45) ABG pCO2 37 (35-45) mmHG ABG pO2 59 L (80-105) mmHG ABG HCO3 28 H (22-26) mEq/L ABG Total CO2 23.7 (23-27) mmol/L ABG Base Excess 4.5 H (-2.0-3.0) Sodium (136-145) mmol/L Potassium (3.5-5.1) mmol/L Chloride (98-107) mmol/L Carbon Dioxide (21.0-32.0) mmol/L BUN (7.0-18.0) mg/dL Creatinine (0.6-1.0) mg/dL Est Cr Clr Drug Dosing Estimated GFR (MDRD) ml/min Glucose (74-106) mg/dL Calcium (8.5-10.1) mg/dL Phosphorus 3.3 (2.6-4.7) mg/dL Magnesium 2.2 (1.8-2.4) mg/dL Total Bilirubin (0.2-1.0) mg/dL AST (15-37) IU/L ALT (14-63) IU/L Alkaline Phosphatase (46-116) U/L Troponin I (0.000-0.056) ng/mL C-Reactive Protein 14.30 H (0.00-0.90) mg/dL Total Protein (6.4-8.2) g/dL Albumin (3.4-5.0) g/dL Globulin (2.6-4.0) g/dL Albumin/Globulin Ratio (0.9-1.6) Urine Color Urine Appearance Urine pH (5.0-8.0) Ur Specific [place] (1.001-1.035) Urine Protein (NEGATIVE) mg/dL Urine Glucose (UA) (NEGATIVE) mg/dL Urine Ketones (NEGATIVE) mg/dL Urine Occult Blood (NEGATIVE) Urine Nitrite (NEGATIVE) Urine Bilirubin (NEGATIVE) Urine Urobilinogen (<2.0) EU/dL Ur Leukocyte Esterase (NEGATIVE) Urine RBC (0-2/HPF) Urine WBC (0-5/HPF) Ur Epithelial Cells (NONE-FEW) Urine Bacteria (NEGATIVE) Salicylates (0-20) mg/dL 11/27/20 Range/Units 19:45 WBC (4.0-11.0) K/uL RBC (4.30-5.90) M/uL Hgb (12.0-16.0) g/dL Hct (36.0-46.0) % MCV (80.0-98.0) fL MCH (27.0-32.0) pg MCHC (31.0-37.0) g/dL RDW Std Deviation (28.0-62.0) fl RDW Coeff of Noe (11.0-15.0) % Plt Count (150-400) K/uL MPV (7.40-12.00) fL Neut % (Auto) (48.0-80.0) % Lymph % (Auto) (16.0-40.0) % [place] % (Auto) (0.0-15.0) % Eos % (Auto) (0.0-7.0) % Baso % (Auto) (0.0-1.5) % Neut # (Auto) (1.4-5.7) K/uL Lymph # (Auto) (0.6-2.4) K/uL [place] # (Auto) (0.0-0.8) K/uL Eos # (Auto) (0.0-0.7) K/uL Baso # (Auto) (0.0-0.1) K/uL ABG pH (7.35-7.45) ABG pCO2 (35-45) mmHG ABG pO2 (80-105) mmHG ABG HCO3 (22-26) mEq/L ABG Total CO2 (23-27) mmol/L ABG Base Excess (-2.0-3.0) Sodium (136-145) mmol/L Potassium (3.5-5.1) mmol/L Chloride (98-107) mmol/L Carbon Dioxide (21.0-32.0) mmol/L BUN (7.0-18.0) mg/dL Creatinine (0.6-1.0) mg/dL Est Cr Clr Drug Dosing Estimated GFR (MDRD) ml/min Glucose (74-106) mg/dL Calcium (8.5-10.1) mg/dL Phosphorus (2.6-4.7) mg/dL Magnesium (1.8-2.4) mg/dL Total Bilirubin (0.2-1.0) mg/dL AST (15-37) IU/L ALT (14-63) IU/L Alkaline Phosphatase (46-116) U/L Troponin I (0.000-0.056) ng/mL C-Reactive Protein (0.00-0.90) mg/dL Total Protein (6.4-8.2) g/dL Albumin (3.4-5.0) g/dL Globulin (2.6-4.0) g/dL Albumin/Globulin Ratio (0.9-1.6) Urine Color YELLOW Urine Appearance CLEAR Urine pH 6.0 (5.0-8.0) Ur Specific [place] 1.010 (1.001-1.035) Urine Protein TRACE H (NEGATIVE) mg/dL Urine Glucose (UA) NEGATIVE (NEGATIVE) mg/dL Urine Ketones NEGATIVE (NEGATIVE) mg/dL Urine Occult Blood TRACE-INTACT H (NEGATIVE) Urine Nitrite NEGATIVE (NEGATIVE) Urine Bilirubin NEGATIVE (NEGATIVE) Urine Urobilinogen 1.0 (<2.0) EU/dL Ur Leukocyte Esterase SMALL H (NEGATIVE) Urine RBC 1-3 (0-2/HPF) Urine WBC 0-3 (0-5/HPF) Ur Epithelial Cells FEW (NONE-FEW) Urine Bacteria FEW (NEGATIVE) Salicylates (0-20) mg/dL Result Diagrams: 11/27/20 16:55 11/27/20 16:55 Sepsis Event Note - Evaluation Sepsis Screening Result: No Definite Risk - Focused Exam Vital Signs: Vital Signs Temp Pulse Resp BP Pulse Ox 11/27/20 22:00 36.9 C 90 23 H 110/57 L 91 L 11/27/20 20:38 36.1 C 100 22 H 141/78 H 93 L 11/27/20 19:23 96 165/97 H 94 L 11/27/20 18:59 109 H 143/74 H 97 11/27/20 18:42 113 H 23 H 143/74 H 95 11/27/20 18:20 114 H 93 L 11/27/20 17:04 116 H 130/85 92 L 11/27/20 16:37 36.3 C 122 H 30 H 130/85 78 L Problem List Initiated/Reviewed/Updated: Yes Orders Last 24hrs: Active Orders 24 hr Category Date Time Status Admission Status [Patient Status] [ADT] Stat ADT 11/27/20 19:51 Active Cardiac Monitoring [RC] Q8HR Care 11/27/20 16:47 Active RT Aerosol Therapy [RC] ASDIRECTED Care 11/27/20 16:49 Active RT Aerosol Therapy [RC] ASDIRECTED Care 11/27/20 16:49 Active RT Aerosol Therapy [RC] ASDIRECTED Care 11/27/20 16:49 Active CULTURE URINE [MREF] Stat Lab 11/27/20 19:45 Received Assessment/Plan Comment:: 50 yo female admitted for acute hypoxic respiratory failure from COVID-19 pneum onia Hypoxia: will continue heated high flow, titrate as needed COVID-19: will treat with remdesivir, dexamethasone, barcitinib, and lovenox for DVT prophylaxis
[2020-11-28] MEDS ORDERED: Albuterol/Ipratropium 3.0-0.5 MG/3 ML Neb Soln NEB PRN (00:43)
[2020-11-28] MEDS: Enoxaparin 40 MG/0.4 ML Syringe SUBCUT SCH ×2 (00:50→20:23)
[2020-11-28 06:44] LABS: CARBON DIOXIDE,CO2 27.5 mmol/L (21.0-32.0); POTASSIUM,K 3.2 mmol/L (3.5-5.1)
--- NOTE | 2020-11-28 10:06 | PCM.PN ---
- General Info Date of Service: 11/28/20 - Review of Systems Systems Review Comment:: did not sleep well last night, reports shortness of breath and cough - Patient Data Vitals - Most Recent: Last Vital Signs Temp 35.7 C L 11/28/20 07:00 Pulse 88 11/28/20 07:00 Resp 18 11/28/20 07:00 BP 120/72 11/28/20 07:00 Pulse Ox 89 L 11/28/20 07:00 Weight - Most Recent: 92.17 kg I&O - Last 24 Hours: Intake & Output 11/27/20 11/28/20 11/28/20 22:59 06:59 14:59 Intake Total 500 Output Total 650 Balance -150 Lab Results Last 24 Hours: Laboratory Results - last 24 hr 11/27/20 11/27/20 11/27/20 Range/Units 16:55 16:55 16:55 WBC 11.68 H (4.0-11.0) K/uL RBC 5.34 (4.30-5.90) M/uL Hgb 16.5 H (12.0-16.0) g/dL Hct 47.9 H (36.0-46.0) % MCV 89.7 (80.0-98.0) fL MCH 30.9 (27.0-32.0) pg MCHC 34.4 (31.0-37.0) g/dL RDW Std Deviation 39.7 (28.0-62.0) fl RDW Coeff of Noe 12 (11.0-15.0) % Plt Count 311 (150-400) K/uL MPV 10.10 (7.40-12.00) fL Neut % (Auto) 83.1 H (48.0-80.0) % Lymph % (Auto) 11.4 L (16.0-40.0) % Cache % (Auto) 5.3 (0.0-15.0) % Eos % (Auto) 0.0 (0.0-7.0) % Baso % (Auto) 0.2 (0.0-1.5) % Neut # (Auto) 9.7 H (1.4-5.7) K/uL Lymph # (Auto) 1.3 (0.6-2.4) K/uL Cache # (Auto) 0.6 (0.0-0.8) K/uL Eos # (Auto) 0.0 (0.0-0.7) K/uL Baso # (Auto) 0.0 (0.0-0.1) K/uL Add Manual Diff Neutrophils % (Manual) (48.0-80.0) % Band Neutrophils % % Lymphocytes % (Manual) (16.0-40.0) % Monocytes % (Manual) (0.0-15.0) % Absolute Seg Neuts (1.4-5.7) Band Neutrophils # Lymphocytes # (Manual) (0.6-2.4) Monocytes # (Manual) (0.0-0.8) ABG pH (7.35-7.45) ABG pCO2 (35-45) mmHG ABG pO2 (80-105) mmHG ABG HCO3 (22-26) mEq/L ABG Total CO2 (23-27) mmol/L ABG Base Excess (-2.0-3.0) Sodium 143 (136-145) mmol/L Potassium 3.5 (3.5-5.1) mmol/L Chloride 101 (98-107) mmol/L Carbon Dioxide 29.5 (21.0-32.0) mmol/L BUN 20 H (7.0-18.0) mg/dL Creatinine 1.2 H (0.6-1.0) mg/dL Est Cr Clr Drug Dosing TNP Estimated GFR (MDRD) 47.7 ml/min Glucose 137 H (74-106) mg/dL Calcium 8.2 L (8.5-10.1) mg/dL Phosphorus (2.6-4.7) mg/dL Magnesium (1.8-2.4) mg/dL Total Bilirubin 0.7 (0.2-1.0) mg/dL AST 46 H (15-37) IU/L ALT 25 (14-63) IU/L Alkaline Phosphatase 81 (46-116) U/L Troponin I < 0.050 (0.000-0.056) ng/mL C-Reactive Protein (0.00-0.90) mg/dL Total Protein 7.9 (6.4-8.2) g/dL Albumin 3.0 L (3.4-5.0) g/dL Globulin 4.9 H (2.6-4.0) g/dL Albumin/Globulin Ratio 0.6 L (0.9-1.6) Urine Color Urine Appearance Urine pH (5.0-8.0) Ur Specific [place] (1.001-1.035) Urine Protein (NEGATIVE) mg/dL Urine Glucose (UA) (NEGATIVE) mg/dL Urine Ketones (NEGATIVE) mg/dL Urine Occult Blood (NEGATIVE) Urine Nitrite (NEGATIVE) Urine Bilirubin (NEGATIVE) Urine Urobilinogen (<2.0) EU/dL Ur Leukocyte Esterase (NEGATIVE) Urine RBC (0-2/HPF) Urine WBC (0-5/HPF) Ur Epithelial Cells (NONE-FEW) Urine Bacteria (NEGATIVE) Salicylates 0.6 (0-20) mg/dL 11/27/20 11/27/20 11/27/20 Range/Units 17:03 18:55 18:58 WBC (4.0-11.0) K/uL RBC (4.30-5.90) M/uL Hgb (12.0-16.0) g/dL Hct (36.0-46.0) % MCV (80.0-98.0) fL MCH (27.0-32.0) pg MCHC (31.0-37.0) g/dL RDW Std Deviation (28.0-62.0) fl RDW Coeff of Noe (11.0-15.0) % Plt Count (150-400) K/uL MPV (7.40-12.00) fL Neut % (Auto) (48.0-80.0) % Lymph % (Auto) (16.0-40.0) % Cache % (Auto) (0.0-15.0) % Eos % (Auto) (0.0-7.0) % Baso % (Auto) (0.0-1.5) % Neut # (Auto) (1.4-5.7) K/uL Lymph # (Auto) (0.6-2.4) K/uL [place] # (Auto) (0.0-0.8) K/uL Eos # (Auto) (0.0-0.7) K/uL Baso # (Auto) (0.0-0.1) K/uL Add Manual Diff Neutrophils % (Manual) (48.0-80.0) % Band Neutrophils % % Lymphocytes % (Manual) (16.0-40.0) % Monocytes % (Manual) (0.0-15.0) % Absolute Seg Neuts (1.4-5.7) Band Neutrophils # Lymphocytes # (Manual) (0.6-2.4) Monocytes # (Manual) (0.0-0.8) ABG pH 7.49 H (7.35-7.45) ABG pCO2 37 (35-45) mmHG ABG pO2 59 L (80-105) mmHG ABG HCO3 28 H (22-26) mEq/L ABG Total CO2 23.7 (23-27) mmol/L ABG Base Excess 4.5 H (-2.0-3.0) Sodium (136-145) mmol/L Potassium (3.5-5.1) mmol/L Chloride (98-107) mmol/L Carbon Dioxide (21.0-32.0) mmol/L BUN (7.0-18.0) mg/dL Creatinine (0.6-1.0) mg/dL Est Cr Clr Drug Dosing Estimated GFR (MDRD) ml/min Glucose (74-106) mg/dL Calcium (8.5-10.1) mg/dL Phosphorus 3.3 (2.6-4.7) mg/dL Magnesium 2.2 (1.8-2.4) mg/dL Total Bilirubin (0.2-1.0) mg/dL AST (15-37) IU/L ALT (14-63) IU/L Alkaline Phosphatase (46-116) U/L Troponin I (0.000-0.056) ng/mL C-Reactive Protein 14.30 H (0.00-0.90) mg/dL Total Protein (6.4-8.2) g/dL Albumin (3.4-5.0) g/dL Globulin (2.6-4.0) g/dL Albumin/Globulin Ratio (0.9-1.6) Urine Color Urine Appearance Urine pH (5.0-8.0) Ur Specific [place] (1.001-1.035) Urine Protein (NEGATIVE) mg/dL Urine Glucose (UA) (NEGATIVE) mg/dL Urine Ketones (NEGATIVE) mg/dL Urine Occult Blood (NEGATIVE) Urine Nitrite (NEGATIVE) Urine Bilirubin (NEGATIVE) Urine Urobilinogen (<2.0) EU/dL Ur Leukocyte Esterase (NEGATIVE) Urine RBC (0-2/HPF) Urine WBC (0-5/HPF) Ur Epithelial Cells (NONE-FEW) Urine Bacteria (NEGATIVE) Salicylates (0-20) mg/dL 11/27/20 11/28/20 11/28/20 Range/Units 19:45 06:00 06:00 WBC 6.89 (4.0-11.0) K/uL RBC 4.50 (4.30-5.90) M/uL Hgb 14.0 (12.0-16.0) g/dL Hct 41.0 (36.0-46.0) % MCV 91.1 (80.0-98.0) fL MCH 31.1 (27.0-32.0) pg MCHC 34.1 (31.0-37.0) g/dL RDW Std Deviation 39.6 (28.0-62.0) fl RDW Coeff of Noe 12 (11.0-15.0) % Plt Count 305 (150-400) K/uL MPV 10.60 (7.40-12.00) fL Neut % (Auto) (48.0-80.0) % Lymph % (Auto) (16.0-40.0) % Cache % (Auto) (0.0-15.0) % Eos % (Auto) (0.0-7.0) % Baso % (Auto) (0.0-1.5) % Neut # (Auto) (1.4-5.7) K/uL Lymph # (Auto) (0.6-2.4) K/uL [place] # (Auto) (0.0-0.8) K/uL Eos # (Auto) (0.0-0.7) K/uL Baso # (Auto) (0.0-0.1) K/uL Add Manual Diff YES Neutrophils % (Manual) 65 (48.0-80.0) % Band Neutrophils % 7 % Lymphocytes % (Manual) 24 (16.0-40.0) % Monocytes % (Manual) 4 (0.0-15.0) % Absolute Seg Neuts 4.5 (1.4-5.7) Band Neutrophils # 0.5 Lymphocytes # (Manual) 1.7 (0.6-2.4) Monocytes # (Manual) 0.3 (0.0-0.8) ABG pH (7.35-7.45) ABG pCO2 (35-45) mmHG ABG pO2 (80-105) mmHG ABG HCO3 (22-26) mEq/L ABG Total CO2 (23-27) mmol/L ABG Base Excess (-2.0-3.0) Sodium 142 (136-145) mmol/L Potassium 3.2 L (3.5-5.1) mmol/L Chloride 103 (98-107) mmol/L Carbon Dioxide 27.5 (21.0-32.0) mmol/L BUN 18 (7.0-18.0) mg/dL Creatinine 1.0 (0.6-1.0) mg/dL Est Cr Clr Drug Dosing 56.29 Estimated GFR (MDRD) 58.9 ml/min Glucose 159 H (74-106) mg/dL Calcium 7.6 L (8.5-10.1) mg/dL Phosphorus (2.6-4.7) mg/dL Magnesium (1.8-2.4) mg/dL Total Bilirubin 0.5 (0.2-1.0) mg/dL AST 33 (15-37) IU/L ALT 19 (14-63) IU/L Alkaline Phosphatase 67 (46-116) U/L Troponin I (0.000-0.056) ng/mL C-Reactive Protein (0.00-0.90) mg/dL Total Protein 6.8 (6.4-8.2) g/dL Albumin 2.5 L (3.4-5.0) g/dL Globulin 4.3 H (2.6-4.0) g/dL Albumin/Globulin Ratio 0.6 L (0.9-1.6) Urine Color YELLOW Urine Appearance CLEAR Urine pH 6.0 (5.0-8.0) Ur Specific [place] 1.010 (1.001-1.035) Urine Protein TRACE H (NEGATIVE) mg/dL Urine Glucose (UA) NEGATIVE (NEGATIVE) mg/dL Urine Ketones NEGATIVE (NEGATIVE) mg/dL Urine Occult Blood TRACE-INTACT H (NEGATIVE) Urine Nitrite NEGATIVE (NEGATIVE) Urine Bilirubin NEGATIVE (NEGATIVE) Urine Urobilinogen 1.0 (<2.0) EU/dL Ur Leukocyte Esterase SMALL H (NEGATIVE) Urine RBC 1-3 (0-2/HPF) Urine WBC 0-3 (0-5/HPF) Ur Epithelial Cells FEW (NONE-FEW) Urine Bacteria FEW (NEGATIVE) Salicylates (0-20) mg/dL Med Orders - Current: Current Medications Albuterol/Ipratropium (Albuterol/Ipratropium 3.0-0.5 Mg/3 Ml Neb Soln) 3 ml NEB Q4HRRT PRN PRN Reason: Shortness Of Breath/wheezing Baricitinib (Baricitinib 2 Mg Tab) 4 mg PO BEDTIME [facility] Last Admin: 11/28/20 00:49 Dose: 4 mg Documented by: Dexamethasone (Dexamethasone 0.5 Mg Tab) 6 mg PO Q24H NONA Enoxaparin Sodium (Enoxaparin 40 Mg/0.4 Ml Syringe) 40 mg SUBCUT BEDTIME [facility] Last Admin: 11/28/20 00:50 Dose: 40 mg Documented by: Remdesivir 100 mg/ Sodium (Chloride) 100 mls @ 100 mls/hr IV Q24H NONA Stop: 12/01/20 16:59 Potassium Chloride (Potassium Chloride 20 Meq Tab.Er) 40 meq PO ONETIME ONE Stop: 11/28/20 10:05 Discontinued Medications Albuterol/Ipratropium (Albuterol/Ipratropium 3.0-0.5 Mg/3 Ml Neb Soln) 3 ml NEB ONETIME ONE Stop: 11/27/20 16:50 Last Admin: 11/27/20 16:59 Dose: 3 ml Documented by: Albuterol/Ipratropium (Albuterol/Ipratropium 3.0-0.5 Mg/3 Ml Neb Soln) 3 ml NEB ONETIME ONE Stop: 11/27/20 16:50 Last Admin: 11/27/20 16:59 Dose: 3 ml Documented by: Albuterol/Ipratropium (Albuterol/Ipratropium 3.0-0.5 Mg/3 Ml Neb Soln) 3 ml NEB ONETIME ONE Stop: 11/27/20 16:50 Last Admin: 11/27/20 16:59 Dose: 3 ml Documented by: Dexamethasone (Dexamethasone 10 Mg/Ml Sdv) 10 mg IVPUSH ONETIME ONE Stop: 11/27/20 16:49 Last Admin: 11/27/20 17:09 Dose: 10 mg Documented by: Sodium Chloride (Normal Saline) 1,000 mls @ 999 mls/hr IV BOLUS ONE Stop: 11/27/20 17:47 Last Admin: 11/27/20 16:58 Dose: 999 mls/hr Documented by: Magnesium Sulfate 3 gm/ (Dextrose/Water) 106 mls @ 212 mls/hr IV STAT STA Stop: 11/27/20 17:25 Last Admin: 11/27/20 17:13 Dose: 212 mls/hr Documented by: Remdesivir 200 mg/ Sodium (Chloride) 250 mls @ 250 mls/hr IV ONETIME ONE Stop: 11/27/20 19:51 Last Admin: 11/27/20 23:08 Dose: 250 mls/hr Documented by: Iopamidol (Iopamidol 755 Mg/Ml 500 Ml Multipack Bottle) 100 ml IVPUSH ONETIME STA Stop: 11/27/20 18:19 Last Admin: 11/28/20 04:01 Dose: Not Given Documented by: - Exam General: Alert, Oriented Neck: Supple Lungs: Normal Respiratory Effort, Rhonchi Cardiovascular: Regular Rate, Regular Rhythm GI/Abdominal Exam: Normal Bowel Sounds, Soft, Non-Tender Extremities: Non-Tender, No Pedal Edema Skin: Warm, Dry, Intact Neurological: No New Focal Deficit - Patient Data Lab Results Last 24 hrs: Laboratory Results - last 24 hr 11/27/20 11/27/20 11/27/20 Range/Units 16:55 16:55 16:55 WBC 11.68 H (4.0-11.0) K/uL RBC 5.34 (4.30-5.90) M/uL Hgb 16.5 H (12.0-16.0) g/dL Hct 47.9 H (36.0-46.0) % MCV 89.7 (80.0-98.0) fL MCH 30.9 (27.0-32.0) pg MCHC 34.4 (31.0-37.0) g/dL RDW Std Deviation 39.7 (28.0-62.0) fl RDW Coeff of Noe 12 (11.0-15.0) % Plt Count 311 (150-400) K/uL MPV 10.10 (7.40-12.00) fL Neut % (Auto) 83.1 H (48.0-80.0) % Lymph % (Auto) 11.4 L (16.0-40.0) % Cache % (Auto) 5.3 (0.0-15.0) % Eos % (Auto) 0.0 (0.0-7.0) % Baso % (Auto) 0.2 (0.0-1.5) % Neut # (Auto) 9.7 H (1.4-5.7) K/uL Lymph # (Auto) 1.3 (0.6-2.4) K/uL [place] # (Auto) 0.6 (0.0-0.8) K/uL Eos # (Auto) 0.0 (0.0-0.7) K/uL Baso # (Auto) 0.0 (0.0-0.1) K/uL Add Manual Diff Neutrophils % (Manual) (48.0-80.0) % Band Neutrophils % % Lymphocytes % (Manual) (16.0-40.0) % Monocytes % (Manual) (0.0-15.0) % Absolute Seg Neuts (1.4-5.7) Band Neutrophils # Lymphocytes # (Manual) (0.6-2.4) Monocytes # (Manual) (0.0-0.8) ABG pH (7.35-7.45) ABG pCO2 (35-45) mmHG ABG pO2 (80-105) mmHG ABG HCO3 (22-26) mEq/L ABG Total CO2 (23-27) mmol/L ABG Base Excess (-2.0-3.0) Sodium 143 (136-145) mmol/L Potassium 3.5 (3.5-5.1) mmol/L Chloride 101 (98-107) mmol/L Carbon Dioxide 29.5 (21.0-32.0) mmol/L BUN 20 H (7.0-18.0) mg/dL Creatinine 1.2 H (0.6-1.0) mg/dL Est Cr Clr Drug Dosing TNP Estimated GFR (MDRD) 47.7 ml/min Glucose 137 H (74-106) mg/dL Calcium 8.2 L (8.5-10.1) mg/dL Phosphorus (2.6-4.7) mg/dL Magnesium (1.8-2.4) mg/dL Total Bilirubin 0.7 (0.2-1.0) mg/dL AST 46 H (15-37) IU/L ALT 25 (14-63) IU/L Alkaline Phosphatase 81 (46-116) U/L Troponin I < 0.050 (0.000-0.056) ng/mL C-Reactive Protein (0.00-0.90) mg/dL Total Protein 7.9 (6.4-8.2) g/dL Albumin 3.0 L (3.4-5.0) g/dL Globulin 4.9 H (2.6-4.0) g/dL Albumin/Globulin Ratio 0.6 L (0.9-1.6) Urine Color Urine Appearance Urine pH (5.0-8.0) Ur Specific [place] (1.001-1.035) Urine Protein (NEGATIVE) mg/dL Urine Glucose (UA) (NEGATIVE) mg/dL Urine Ketones (NEGATIVE) mg/dL Urine Occult Blood (NEGATIVE) Urine Nitrite (NEGATIVE) Urine Bilirubin (NEGATIVE) Urine Urobilinogen (<2.0) EU/dL Ur Leukocyte Esterase (NEGATIVE) Urine RBC (0-2/HPF) Urine WBC (0-5/HPF) Ur Epithelial Cells (NONE-FEW) Urine Bacteria (NEGATIVE) Salicylates 0.6 (0-20) mg/dL 11/27/20 11/27/20 11/27/20 Range/Units 17:03 18:55 18:58 WBC (4.0-11.0) K/uL RBC (4.30-5.90) M/uL Hgb (12.0-16.0) g/dL Hct (36.0-46.0) % MCV (80.0-98.0) fL MCH (27.0-32.0) pg MCHC (31.0-37.0) g/dL RDW Std Deviation (28.0-62.0) fl RDW Coeff of Noe (11.0-15.0) % Plt Count (150-400) K/uL MPV (7.40-12.00) fL Neut % (Auto) (48.0-80.0) % Lymph % (Auto) (16.0-40.0) % [place] % (Auto) (0.0-15.0) % Eos % (Auto) (0.0-7.0) % Baso % (Auto) (0.0-1.5) % Neut # (Auto) (1.4-5.7) K/uL Lymph # (Auto) (0.6-2.4) K/uL [place] # (Auto) (0.0-0.8) K/uL Eos # (Auto) (0.0-0.7) K/uL Baso # (Auto) (0.0-0.1) K/uL Add Manual Diff Neutrophils % (Manual) (48.0-80.0) % Band Neutrophils % % Lymphocytes % (Manual) (16.0-40.0) % Monocytes % (Manual) (0.0-15.0) % Absolute Seg Neuts (1.4-5.7) Band Neutrophils # Lymphocytes # (Manual) (0.6-2.4) Monocytes # (Manual) (0.0-0.8) ABG pH 7.49 H (7.35-7.45) ABG pCO2 37 (35-45) mmHG ABG pO2 59 L (80-105) mmHG ABG HCO3 28 H (22-26) mEq/L ABG Total CO2 23.7 (23-27) mmol/L ABG Base Excess 4.5 H (-2.0-3.0) Sodium (136-145) mmol/L Potassium (3.5-5.1) mmol/L Chloride (98-107) mmol/L Carbon Dioxide (21.0-32.0) mmol/L BUN (7.0-18.0) mg/dL Creatinine (0.6-1.0) mg/dL Est Cr Clr Drug Dosing Estimated GFR (MDRD) ml/min Glucose (74-106) mg/dL Calcium (8.5-10.1) mg/dL Phosphorus 3.3 (2.6-4.7) mg/dL Magnesium 2.2 (1.8-2.4) mg/dL Total Bilirubin (0.2-1.0) mg/dL AST (15-37) IU/L ALT (14-63) IU/L Alkaline Phosphatase (46-116) U/L Troponin I (0.000-0.056) ng/mL C-Reactive Protein 14.30 H (0.00-0.90) mg/dL Total Protein (6.4-8.2) g/dL Albumin (3.4-5.0) g/dL Globulin (2.6-4.0) g/dL Albumin/Globulin Ratio (0.9-1.6) Urine Color Urine Appearance Urine pH (5.0-8.0) Ur Specific [place] (1.001-1.035) Urine Protein (NEGATIVE) mg/dL Urine Glucose (UA) (NEGATIVE) mg/dL Urine Ketones (NEGATIVE) mg/dL Urine Occult Blood (NEGATIVE) Urine Nitrite (NEGATIVE) Urine Bilirubin (NEGATIVE) Urine Urobilinogen (<2.0) EU/dL Ur Leukocyte Esterase (NEGATIVE) Urine RBC (0-2/HPF) Urine WBC (0-5/HPF) Ur Epithelial Cells (NONE-FEW) Urine Bacteria (NEGATIVE) Salicylates (0-20) mg/dL 11/27/20 11/28/20 11/28/20 Range/Units 19:45 06:00 06:00 WBC 6.89 (4.0-11.0) K/uL RBC 4.50 (4.30-5.90) M/uL Hgb 14.0 (12.0-16.0) g/dL Hct 41.0 (36.0-46.0) % MCV 91.1 (80.0-98.0) fL MCH 31.1 (27.0-32.0) pg MCHC 34.1 (31.0-37.0) g/dL RDW Std Deviation 39.6 (28.0-62.0) fl RDW Coeff of Noe 12 (11.0-15.0) % Plt Count 305 (150-400) K/uL MPV 10.60 (7.40-12.00) fL Neut % (Auto) (48.0-80.0) % Lymph % (Auto) (16.0-40.0) % Cache % (Auto) (0.0-15.0) % Eos % (Auto) (0.0-7.0) % Baso % (Auto) (0.0-1.5) % Neut # (Auto) (1.4-5.7) K/uL Lymph # (Auto) (0.6-2.4) K/uL [place] # (Auto) (0.0-0.8) K/uL Eos # (Auto) (0.0-0.7) K/uL Baso # (Auto) (0.0-0.1) K/uL Add Manual Diff YES Neutrophils % (Manual) 65 (48.0-80.0) % Band Neutrophils % 7 % Lymphocytes % (Manual) 24 (16.0-40.0) % Monocytes % (Manual) 4 (0.0-15.0) % Absolute Seg Neuts 4.5 (1.4-5.7) Band Neutrophils # 0.5 Lymphocytes # (Manual) 1.7 (0.6-2.4) Monocytes # (Manual) 0.3 (0.0-0.8) ABG pH (7.35-7.45) ABG pCO2 (35-45) mmHG ABG pO2 (80-105) mmHG ABG HCO3 (22-26) mEq/L ABG Total CO2 (23-27) mmol/L ABG Base Excess (-2.0-3.0) Sodium 142 (136-145) mmol/L Potassium 3.2 L (3.5-5.1) mmol/L Chloride 103 (98-107) mmol/L Carbon Dioxide 27.5 (21.0-32.0) mmol/L BUN 18 (7.0-18.0) mg/dL Creatinine 1.0 (0.6-1.0) mg/dL Est Cr Clr Drug Dosing 56.29 Estimated GFR (MDRD) 58.9 ml/min Glucose 159 H (74-106) mg/dL Calcium 7.6 L (8.5-10.1) mg/dL Phosphorus (2.6-4.7) mg/dL Magnesium (1.8-2.4) mg/dL Total Bilirubin 0.5 (0.2-1.0) mg/dL AST 33 (15-37) IU/L ALT 19 (14-63) IU/L Alkaline Phosphatase 67 (46-116) U/L Troponin I (0.000-0.056) ng/mL C-Reactive Protein (0.00-0.90) mg/dL Total Protein 6.8 (6.4-8.2) g/dL Albumin 2.5 L (3.4-5.0) g/dL Globulin 4.3 H (2.6-4.0) g/dL Albumin/Globulin Ratio 0.6 L (0.9-1.6) Urine Color YELLOW Urine Appearance CLEAR Urine pH 6.0 (5.0-8.0) Ur Specific [place] 1.010 (1.001-1.035) Urine Protein TRACE H (NEGATIVE) mg/dL Urine Glucose (UA) NEGATIVE (NEGATIVE) mg/dL Urine Ketones NEGATIVE (NEGATIVE) mg/dL Urine Occult Blood TRACE-INTACT H (NEGATIVE) Urine Nitrite NEGATIVE (NEGATIVE) Urine Bilirubin NEGATIVE (NEGATIVE) Urine Urobilinogen 1.0 (<2.0) EU/dL Ur Leukocyte Esterase SMALL H (NEGATIVE) Urine RBC 1-3 (0-2/HPF) Urine WBC 0-3 (0-5/HPF) Ur Epithelial Cells FEW (NONE-FEW) Urine Bacteria FEW (NEGATIVE) Salicylates (0-20) mg/dL Result Diagrams: 11/28/20 06:00 11/28/20 06:00 Sepsis Event Note - Evaluation Sepsis Screening Result: No Definite Risk - Focused Exam Vital Signs: Vital Signs Temp Pulse Resp BP Pulse Ox 11/28/20 07:00 35.7 C L 88 18 120/72 89 L 11/28/20 03:52 36.1 C 92 22 H 120/62 91 L - Problem List Review Problem List Initiated/Reviewed/Updated: Yes - My Orders Last 24 Hours: My Active Orders 11/27/20 20:37 Telemetry Monitoring [Cardiac Monitoring] [RC] . DIRECTED 11/27/20 23:45 Baricitinib [Olumiant] 4 mg PO BEDTIME 11/28/20 00:15 Enoxaparin [Lovenox] 40 mg SUBCUT BEDTIME 11/28/20 00:43 Oxygen Therapy [RC] PRN Up ad Gina [RC] ASDIRECTED VTE/DVT Education [RC] PER UNIT ROUTINE Vital Signs [RC] Q4H Albuterol/Ipratropium [DuoNeb 3.0-0.5 MG/3 ML] 3 ml NEB Q4HRRT PRN Sequential Compression Device [OM.PC] Per Unit Routine Resuscitation Status Routine 11/28/20 00:44 Antiembolic Devices [RC] PER UNIT ROUTINE RT Aerosol Therapy [RC] ASDIRECTED 11/28/20 Breakfast Regular Diet [DIET] 11/28/20 10:04 Potassium Chloride [Klor-Con M20] 40 meq PO ONETIME ONE 11/28/20 16:00 Remdesivir 100 mg Sodium Chloride 0.9% [Normal Saline] 100 ml IV Q24H dexAMETHasone 6 mg PO Q24H 11/29/20 05:11 CBC WITH AUTO DIFF [HEME] AM COMPREHENSIVE METABOLIC PN,CMP [CHEM] AM 11/30/20 05:11 CBC WITH AUTO DIFF [HEME] AM COMPREHENSIVE METABOLIC PN,CMP [CHEM] AM 12/01/20 05:11 CBC WITH AUTO DIFF [HEME] AM COMPREHENSIVE METABOLIC PN,CMP [CHEM] AM 12/02/20 05:11 CBC WITH AUTO DIFF [HEME] AM COMPREHENSIVE METABOLIC PN,CMP [CHEM] AM - Plan Plan:: 50 yo female admitted for acute hypoxic respiratory failure from COVID-19 pneumonia Hypoxia: will continue heated high flow, titrate as needed COVID-19: will continue remdesivir, dexamethasone, barcitinib, and lovenox for DVT prophylaxis
[2020-11-28] MEDS ORDERED: Potassium Chloride 20 MEQ Tab.ER PO ONE (10:15)
[2020-11-28] MEDS ORDERED: Ibuprofen 200 MG Tab PO PRN (13:31)
[2020-11-28] MEDS: Acetaminophen 325 MG Tab PO PRN (13:40)
[2020-11-28] MEDS: REMDESIVIR 100 MG in Sodium Chloride 0.9% 100 ML IV SCH (15:10)
[2020-11-28] MEDS: Dexamethasone 4 MG Tab PO SCH (16:23)
[2020-11-29 07:27] LABS: CARBON DIOXIDE,CO2 26.6 mmol/L (21.0-32.0); POTASSIUM,K 3.7 mmol/L (3.5-5.1)
--- NOTE | 2020-11-29 15:10 | PCM.PN ---
- General Info Date of Service: 11/29/20 - Review of Systems Systems Review Comment:: feeling better after placing on CPAP, shortness of breath has improved - Patient Data Vitals - Most Recent: Last Vital Signs Temp 37.2 C 11/29/20 11:19 Pulse 69 11/29/20 11:19 Resp 32 H 11/29/20 11:19 BP 133/71 11/29/20 11:19 Pulse Ox 89 L 11/29/20 11:19 Weight - Most Recent: 92.17 kg I&O - Last 24 Hours: Intake & Output 11/29/20 11/29/20 11/29/20 06:59 14:59 22:59 Intake Total 770 Output Total 400 Balance 370 Lab Results Last 24 Hours: Laboratory Results - last 24 hr 11/29/20 11/29/20 Range/Units 06:26 06:26 WBC 8.81 (4.0-11.0) K/uL RBC 4.32 (4.30-5.90) M/uL Hgb 13.4 (12.0-16.0) g/dL Hct 39.2 (36.0-46.0) % MCV 90.7 (80.0-98.0) fL MCH 31.0 (27.0-32.0) pg MCHC 34.2 (31.0-37.0) g/dL RDW Std Deviation 41.6 (28.0-62.0) fl RDW Coeff of Noe 12 (11.0-15.0) % Plt Count 371 (150-400) K/uL MPV 10.50 (7.40-12.00) fL Neut % (Auto) 80.4 H (48.0-80.0) % Lymph % (Auto) 14.4 L (16.0-40.0) % [place] % (Auto) 5.1 (0.0-15.0) % Eos % (Auto) 0.0 (0.0-7.0) % Baso % (Auto) 0.1 (0.0-1.5) % Neut # (Auto) 7.1 H (1.4-5.7) K/uL Lymph # (Auto) 1.3 (0.6-2.4) K/uL [place] # (Auto) 0.5 (0.0-0.8) K/uL Eos # (Auto) 0.0 (0.0-0.7) K/uL Baso # (Auto) 0.0 (0.0-0.1) K/uL Nucleated RBC % 0.0 /100WBC Nucleated RBCs # 0 K/uL Sodium 145 (136-145) mmol/L Potassium 3.7 (3.5-5.1) mmol/L Chloride 106 (98-107) mmol/L Carbon Dioxide 26.6 (21.0-32.0) mmol/L BUN 25 H (7.0-18.0) mg/dL Creatinine 1.1 H (0.6-1.0) mg/dL Est Cr Clr Drug Dosing 51.18 mL/min Estimated GFR (MDRD) 52.8 ml/min Glucose 137 H (74-106) mg/dL Calcium 8.1 L (8.5-10.1) mg/dL Total Bilirubin 0.6 (0.2-1.0) mg/dL AST 31 (15-37) IU/L ALT 21 (14-63) IU/L Alkaline Phosphatase 61 (46-116) U/L Total Protein 6.6 (6.4-8.2) g/dL Albumin 2.5 L (3.4-5.0) g/dL Globulin 4.1 H (2.6-4.0) g/dL Albumin/Globulin Ratio 0.6 L (0.9-1.6) Med Orders - Current: Current Medications Acetaminophen (Acetaminophen 325 Mg Tab) 325 mg PO Q4H PRN PRN Reason: Pain Last Admin: 11/28/20 13:40 Dose: 325 mg Documented by: Albuterol/Ipratropium (Albuterol/Ipratropium 3.0-0.5 Mg/3 Ml Neb Soln) 3 ml NEB Q4HRRT PRN PRN Reason: Shortness Of Breath/wheezing Baricitinib (Baricitinib 2 Mg Tab) 4 mg PO BEDTIME NONA Last Admin: 11/28/20 20:23 Dose: 4 mg Documented by: Dexamethasone (Dexamethasone 4 Mg Tab) 6 mg PO Q24H NONA Last Admin: 11/28/20 16:23 Dose: 6 mg Documented by: Enoxaparin Sodium (Enoxaparin 40 Mg/0.4 Ml Syringe) 40 mg SUBCUT BEDTIME NONA Last Admin: 11/28/20 20:23 Dose: 40 mg Documented by: Remdesivir 100 mg/ Sodium (Chloride) 100 mls @ 100 mls/hr IV Q24H NONA Stop: 12/01/20 16:59 Last Admin: 11/28/20 15:10 Dose: 100 mls/hr Documented by: Ibuprofen (Ibuprofen 200 Mg Tab) 200 mg PO Q6H PRN PRN Reason: Pain Discontinued Medications Albuterol/Ipratropium (Albuterol/Ipratropium 3.0-0.5 Mg/3 Ml Neb Soln) 3 ml NEB ONETIME ONE Stop: 11/27/20 16:50 Last Admin: 11/27/20 16:59 Dose: 3 ml Documented by: Albuterol/Ipratropium (Albuterol/Ipratropium 3.0-0.5 Mg/3 Ml Neb Soln) 3 ml NEB ONETIME ONE Stop: 11/27/20 16:50 Last Admin: 11/27/20 16:59 Dose: 3 ml Documented by: Albuterol/Ipratropium (Albuterol/Ipratropium 3.0-0.5 Mg/3 Ml Neb Soln) 3 ml NEB ONETIME ONE Stop: 11/27/20 16:50 Last Admin: 11/27/20 16:59 Dose: 3 ml Documented by: Dexamethasone (Dexamethasone 10 Mg/Ml Sdv) 10 mg IVPUSH ONETIME ONE Stop: 11/27/20 16:49 Last Admin: 11/27/20 17:09 Dose: 10 mg Documented by: Dexamethasone (Dexamethasone 0.5 Mg Tab) 6 mg PO Q24H NONA Last Admin: 11/28/20 18:38 Dose: Not Given Documented by: Sodium Chloride (Normal Saline) 1,000 mls @ 999 mls/hr IV BOLUS ONE Stop: 11/27/20 17:47 Last Admin: 11/27/20 16:58 Dose: 999 mls/hr Documented by: Magnesium Sulfate 3 gm/ (Dextrose/Water) 106 mls @ 212 mls/hr IV STAT STA Stop: 11/27/20 17:25 Last Admin: 11/27/20 17:13 Dose: 212 mls/hr Documented by: Remdesivir 200 mg/ Sodium (Chloride) 250 mls @ 250 mls/hr IV ONETIME ONE Stop: 11/27/20 19:51 Last Admin: 11/27/20 23:08 Dose: 250 mls/hr Documented by: Iopamidol (Iopamidol 755 Mg/Ml 500 Ml Multipack Bottle) 100 ml IVPUSH ONETIME STA Stop: 11/27/20 18:19 Last Admin: 11/28/20 04:01 Dose: Not Given Documented by: Potassium Chloride (Potassium Chloride 20 Meq Tab.Er) 40 meq PO ONETIME ONE Stop: 11/28/20 10:16 Last Admin: 11/28/20 11:04 Dose: 40 meq Documented by: - Exam General: Alert, Oriented Neck: Supple Lungs: Normal Respiratory Effort, Rhonchi Cardiovascular: Regular Rate, Regular Rhythm GI/Abdominal Exam: Soft, Non-Tender, No Distention Extremities: Non-Tender, No Pedal Edema Skin: Warm, Dry, Intact Neurological: No New Focal Deficit - Patient Data Lab Results Last 24 hrs: Laboratory Results - last 24 hr 11/29/20 11/29/20 Range/Units 06:26 06:26 WBC 8.81 (4.0-11.0) K/uL RBC 4.32 (4.30-5.90) M/uL Hgb 13.4 (12.0-16.0) g/dL Hct 39.2 (36.0-46.0) % MCV 90.7 (80.0-98.0) fL MCH 31.0 (27.0-32.0) pg MCHC 34.2 (31.0-37.0) g/dL RDW Std Deviation 41.6 (28.0-62.0) fl RDW Coeff of Noe 12 (11.0-15.0) % Plt Count 371 (150-400) K/uL MPV 10.50 (7.40-12.00) fL Neut % (Auto) 80.4 H (48.0-80.0) % Lymph % (Auto) 14.4 L (16.0-40.0) % [place] % (Auto) 5.1 (0.0-15.0) % Eos % (Auto) 0.0 (0.0-7.0) % Baso % (Auto) 0.1 (0.0-1.5) % Neut # (Auto) 7.1 H (1.4-5.7) K/uL Lymph # (Auto) 1.3 (0.6-2.4) K/uL [place] # (Auto) 0.5 (0.0-0.8) K/uL Eos # (Auto) 0.0 (0.0-0.7) K/uL Baso # (Auto) 0.0 (0.0-0.1) K/uL Nucleated RBC % 0.0 /100WBC Nucleated RBCs # 0 K/uL Sodium 145 (136-145) mmol/L Potassium 3.7 (3.5-5.1) mmol/L Chloride 106 (98-107) mmol/L Carbon Dioxide 26.6 (21.0-32.0) mmol/L BUN 25 H (7.0-18.0) mg/dL Creatinine 1.1 H (0.6-1.0) mg/dL Est Cr Clr Drug Dosing 51.18 mL/min Estimated GFR (MDRD) 52.8 ml/min Glucose 137 H (74-106) mg/dL Calcium 8.1 L (8.5-10.1) mg/dL Total Bilirubin 0.6 (0.2-1.0) mg/dL AST 31 (15-37) IU/L ALT 21 (14-63) IU/L Alkaline Phosphatase 61 (46-116) U/L Total Protein 6.6 (6.4-8.2) g/dL Albumin 2.5 L (3.4-5.0) g/dL Globulin 4.1 H (2.6-4.0) g/dL Albumin/Globulin Ratio 0.6 L (0.9-1.6) Result Diagrams: 11/29/20 06:26 11/29/20 06:26 Sepsis Event Note - Evaluation Sepsis Screening Result: No Definite Risk - Focused Exam Vital Signs: Vital Signs Temp Pulse Resp BP Pulse Ox 11/29/20 11:19 37.2 C 69 32 H 133/71 89 L - Problem List & Annotations (1) Acute respiratory failure SNOMED Code(s): 12821431 Code(s): J96.00 - ACUTE RESPIRATORY FAILURE, UNSP W HYPOXIA OR HYPERCAPNIA Status: Acute Current Visit: Yes Qualifiers: Respiratory failure complication: hypoxia Qualified Code(s): J96.01 - Acute respiratory failure with hypoxia (2) COVID-19 virus infection SNOMED Code(s): 356782170 Code(s): U07.1 - COVID-19 Status: Acute Current Visit: Yes - Problem List Review Problem List Initiated/Reviewed/Updated: Yes - My Orders Last 24 Hours: My Active Orders 11/28/20 16:00 Remdesivir 100 mg Sodium Chloride 0.9% [Normal Saline] 100 ml IV Q24H 11/28/20 16:11 dexAMETHasone 6 mg PO Q24H 11/29/20 11:30 RT BiPAP/CPAP [RC] ASDIRECTED 11/30/20 05:11 CBC WITH AUTO DIFF [HEME] AM COMPREHENSIVE METABOLIC PN,CMP [CHEM] AM 12/01/20 05:11 CBC WITH AUTO DIFF [HEME] AM COMPREHENSIVE METABOLIC PN,CMP [CHEM] AM 12/02/20 05:11 CBC WITH AUTO DIFF [HEME] AM COMPREHENSIVE METABOLIC PN,CMP [CHEM] AM - Plan Plan:: 50 yo female admitted for acute hypoxic respiratory failure from COVID-19 pneumonia Hypoxia:Needing CPAP this morning, will give breaks as needed with [facility] COVID-19: will continue remdesivir, dexamethasone, barcitinib, and lovenox for DVT prophylaxis
[2020-11-29] MEDS: REMDESIVIR 100 MG in Sodium Chloride 0.9% 100 ML IV SCH (16:10)
[2020-11-29] MEDS: Dexamethasone 4 MG Tab PO SCH (16:10)
[2020-11-29] MEDS: Enoxaparin 40 MG/0.4 ML Syringe SUBCUT SCH (20:37)
[2020-11-30 06:45] LABS: CARBON DIOXIDE,CO2 27.9 mmol/L (21.0-32.0); POTASSIUM,K 3.8 mmol/L (3.5-5.1)
--- NOTE | 2020-11-30 07:28 | PCM.PN ---
- General Info Date of Service: 11/30/20 - Review of Systems Systems Review Comment:: feeling better, reports shortness of breath and cough when getting up to go to bathroom - Patient Data Vitals - Most Recent: Last Vital Signs Temp 37.2 C 11/29/20 16:00 Pulse 75 11/30/20 01:00 Resp 26 H 11/30/20 05:00 BP 128/65 11/30/20 05:00 Pulse Ox 97 11/30/20 05:00 Weight - Most Recent: 92.17 kg I&O - Last 24 Hours: Intake & Output 11/29/20 11/30/20 11/30/20 22:59 06:59 14:59 Intake Total 750 Output Total 800 Balance -50 Lab Results Last 24 Hours: Laboratory Results - last 24 hr 11/29/20 11/30/20 11/30/20 Range/Units 06:26 05:48 05:48 WBC 8.53 (4.0-11.0) K/uL RBC 4.19 L (4.30-5.90) M/uL Hgb 12.9 (12.0-16.0) g/dL Hct 38.4 (36.0-46.0) % MCV 91.6 (80.0-98.0) fL MCH 30.8 (27.0-32.0) pg MCHC 33.6 (31.0-37.0) g/dL RDW Std Deviation 42.0 (28.0-62.0) fl RDW Coeff of Noe 12 (11.0-15.0) % Plt Count 373 (150-400) K/uL MPV 10.00 (7.40-12.00) fL Neut % (Auto) 84.7 H (48.0-80.0) % Lymph % (Auto) 10.0 L (16.0-40.0) % [place] % (Auto) 5.2 (0.0-15.0) % Eos % (Auto) 0.0 (0.0-7.0) % Baso % (Auto) 0.1 (0.0-1.5) % Neut # (Auto) 7.2 H (1.4-5.7) K/uL Lymph # (Auto) 0.9 (0.6-2.4) K/uL [place] # (Auto) 0.4 (0.0-0.8) K/uL Eos # (Auto) 0.0 (0.0-0.7) K/uL Baso # (Auto) 0.0 (0.0-0.1) K/uL Nucleated RBC % 0.0 /100WBC Nucleated RBCs # 0 K/uL Sodium 145 146 H (136-145) mmol/L Potassium 3.7 3.8 (3.5-5.1) mmol/L Chloride 106 107 (98-107) mmol/L Carbon Dioxide 26.6 27.9 (21.0-32.0) mmol/L BUN 25 H 21 H (7.0-18.0) mg/dL Creatinine 1.1 H 1.0 (0.6-1.0) mg/dL Est Cr Clr Drug Dosing 51.18 56.29 mL/min Estimated GFR (MDRD) 52.8 58.9 ml/min Glucose 137 H 165 H (74-106) mg/dL Calcium 8.1 L 7.6 L (8.5-10.1) mg/dL Total Bilirubin 0.6 0.4 (0.2-1.0) mg/dL AST 31 29 (15-37) IU/L ALT 21 25 (14-63) IU/L Alkaline Phosphatase 61 58 (46-116) U/L Total Protein 6.6 6.1 L (6.4-8.2) g/dL Albumin 2.5 L 2.3 L (3.4-5.0) g/dL Globulin 4.1 H 3.8 (2.6-4.0) g/dL Albumin/Globulin Ratio 0.6 L 0.6 L (0.9-1.6) Med Orders - Current: Current Medications Acetaminophen (Acetaminophen 325 Mg Tab) 325 mg PO Q4H PRN PRN Reason: Pain Last Admin: 11/28/20 13:40 Dose: 325 mg Documented by: Albuterol/Ipratropium (Albuterol/Ipratropium 3.0-0.5 Mg/3 Ml Neb Soln) 3 ml NEB Q4HRRT PRN PRN Reason: Shortness Of Breath/wheezing Baricitinib (Baricitinib 2 Mg Tab) 4 mg PO BEDTIME NONA Last Admin: 11/29/20 20:37 Dose: 4 mg Documented by: Dexamethasone (Dexamethasone 4 Mg Tab) 6 mg PO Q24H NONA Last Admin: 11/29/20 16:10 Dose: 6 mg Documented by: Enoxaparin Sodium (Enoxaparin 40 Mg/0.4 Ml Syringe) 40 mg SUBCUT BEDTIME NONA Last Admin: 11/29/20 20:37 Dose: 40 mg Documented by: Remdesivir 100 mg/ Sodium (Chloride) 100 mls @ 100 mls/hr IV Q24H NONA Stop: 12/01/20 16:59 Last Admin: 11/29/20 16:10 Dose: 100 mls/hr Documented by: Ibuprofen (Ibuprofen 200 Mg Tab) 200 mg PO Q6H PRN PRN Reason: Pain Discontinued Medications Albuterol/Ipratropium (Albuterol/Ipratropium 3.0-0.5 Mg/3 Ml Neb Soln) 3 ml NEB ONETIME ONE Stop: 11/27/20 16:50 Last Admin: 11/27/20 16:59 Dose: 3 ml Documented by: Albuterol/Ipratropium (Albuterol/Ipratropium 3.0-0.5 Mg/3 Ml Neb Soln) 3 ml NEB ONETIME ONE Stop: 11/27/20 16:50 Last Admin: 11/27/20 16:59 Dose: 3 ml Documented by: Albuterol/Ipratropium (Albuterol/Ipratropium 3.0-0.5 Mg/3 Ml Neb Soln) 3 ml NEB ONETIME ONE Stop: 11/27/20 16:50 Last Admin: 11/27/20 16:59 Dose: 3 ml Documented by: Dexamethasone (Dexamethasone 10 Mg/Ml Sdv) 10 mg IVPUSH ONETIME ONE Stop: 11/27/20 16:49 Last Admin: 11/27/20 17:09 Dose: 10 mg Documented by: Dexamethasone (Dexamethasone 0.5 Mg Tab) 6 mg PO Q24H NONA Last Admin: 11/28/20 18:38 Dose: Not Given Documented by: Sodium Chloride (Normal Saline) 1,000 mls @ 999 mls/hr IV BOLUS ONE Stop: 11/27/20 17:47 Last Admin: 11/27/20 16:58 Dose: 999 mls/hr Documented by: Magnesium Sulfate 3 gm/ (Dextrose/Water) 106 mls @ 212 mls/hr IV STAT STA Stop: 11/27/20 17:25 Last Admin: 11/27/20 17:13 Dose: 212 mls/hr Documented by: Remdesivir 200 mg/ Sodium (Chloride) 250 mls @ 250 mls/hr IV ONETIME ONE Stop: 11/27/20 19:51 Last Admin: 11/27/20 23:08 Dose: 250 mls/hr Documented by: Iopamidol (Iopamidol 755 Mg/Ml 500 Ml Multipack Bottle) 100 ml IVPUSH ONETIME STA Stop: 11/27/20 18:19 Last Admin: 11/28/20 04:01 Dose: Not Given Documented by: Potassium Chloride (Potassium Chloride 20 Meq Tab.Er) 40 meq PO ONETIME ONE Stop: 11/28/20 10:16 Last Admin: 11/28/20 11:04 Dose: 40 meq Documented by: - Exam General: Alert, Oriented Lungs: Normal Respiratory Effort, Rhonchi Cardiovascular: Regular Rate, Regular Rhythm GI/Abdominal Exam: Soft, Non-Tender, No Distention Extremities: Non-Tender, No Pedal Edema Skin: Warm, Dry, Intact Neurological: No New Focal Deficit - Patient Data Lab Results Last 24 hrs: Laboratory Results - last 24 hr 11/29/20 11/30/20 11/30/20 Range/Units 06:26 05:48 05:48 WBC 8.53 (4.0-11.0) K/uL RBC 4.19 L (4.30-5.90) M/uL Hgb 12.9 (12.0-16.0) g/dL Hct 38.4 (36.0-46.0) % MCV 91.6 (80.0-98.0) fL MCH 30.8 (27.0-32.0) pg MCHC 33.6 (31.0-37.0) g/dL RDW Std Deviation 42.0 (28.0-62.0) fl RDW Coeff of Noe 12 (11.0-15.0) % Plt Count 373 (150-400) K/uL MPV 10.00 (7.40-12.00) fL Neut % (Auto) 84.7 H (48.0-80.0) % Lymph % (Auto) 10.0 L (16.0-40.0) % [place] % (Auto) 5.2 (0.0-15.0) % Eos % (Auto) 0.0 (0.0-7.0) % Baso % (Auto) 0.1 (0.0-1.5) % Neut # (Auto) 7.2 H (1.4-5.7) K/uL Lymph # (Auto) 0.9 (0.6-2.4) K/uL [place] # (Auto) 0.4 (0.0-0.8) K/uL Eos # (Auto) 0.0 (0.0-0.7) K/uL Baso # (Auto) 0.0 (0.0-0.1) K/uL Nucleated RBC % 0.0 /100WBC Nucleated RBCs # 0 K/uL Sodium 145 146 H (136-145) mmol/L Potassium 3.7 3.8 (3.5-5.1) mmol/L Chloride 106 107 (98-107) mmol/L Carbon Dioxide 26.6 27.9 (21.0-32.0) mmol/L BUN 25 H 21 H (7.0-18.0) mg/dL Creatinine 1.1 H 1.0 (0.6-1.0) mg/dL Est Cr Clr Drug Dosing 51.18 56.29 mL/min Estimated GFR (MDRD) 52.8 58.9 ml/min Glucose 137 H 165 H (74-106) mg/dL Calcium 8.1 L 7.6 L (8.5-10.1) mg/dL Total Bilirubin 0.6 0.4 (0.2-1.0) mg/dL AST 31 29 (15-37) IU/L ALT 21 25 (14-63) IU/L Alkaline Phosphatase 61 58 (46-116) U/L Total Protein 6.6 6.1 L (6.4-8.2) g/dL Albumin 2.5 L 2.3 L (3.4-5.0) g/dL Globulin 4.1 H 3.8 (2.6-4.0) g/dL Albumin/Globulin Ratio 0.6 L 0.6 L (0.9-1.6) Result Diagrams: 11/30/20 05:48 11/30/20 05:48 Sepsis Event Note - Evaluation Sepsis Screening Result: No Definite Risk - Focused Exam Vital Signs: Vital Signs Pulse Resp BP Pulse Ox 11/30/20 05:00 26 H 128/65 97 11/30/20 01:00 75 45 H 126/72 97 11/29/20 19:51 73 45 H 118/74 97 - Problem List & Annotations (1) Acute respiratory failure SNOMED Code(s): 68154797 Code(s): J96.00 - ACUTE RESPIRATORY FAILURE, UNSP W HYPOXIA OR HYPERCAPNIA Status: Acute Current Visit: Yes Qualifiers: Respiratory failure complication: hypoxia Qualified Code(s): J96.01 - Acute respiratory failure with hypoxia (2) COVID-19 virus infection SNOMED Code(s): 645708588 Code(s): U07.1 - COVID-19 Status: Acute Current Visit: Yes - Problem List Review Problem List Initiated/Reviewed/Updated: Yes - My Orders Last 24 Hours: My Active Orders 11/29/20 11:30 RT BiPAP/CPAP [RC] ASDIRECTED 12/01/20 05:11 CBC WITH AUTO DIFF [HEME] AM COMPREHENSIVE METABOLIC PN,CMP [CHEM] AM 12/02/20 05:11 CBC WITH AUTO DIFF [HEME] AM COMPREHENSIVE METABOLIC PN,CMP [CHEM] AM - Plan Plan:: 50 yo female admitted for acute hypoxic respiratory failure from COVID-19 pneumonia Hypoxia: conitnue CPAP, will give breaks as needed with [facility] COVID-19: will continue remdesivir, dexamethasone, barcitinib, and lovenox for DVT prophylaxis
[2020-11-30] MEDS: Dexamethasone 4 MG Tab PO SCH (17:02)
[2020-11-30] MEDS: REMDESIVIR 100 MG in Sodium Chloride 0.9% 100 ML IV SCH (17:03)
[2020-11-30] MEDS: Enoxaparin 40 MG/0.4 ML Syringe SUBCUT SCH (21:02)
[2020-12-01 07:03] LABS: BLOOD UREA NITROGEN,BUN 15 mg/dL (7.0-18.0); CHLORIDE,CL 106 mmol/L (98-107); GLUCOSE RANDOM 140 mg/dL (74-106); POTASSIUM,K 3.9 mmol/L (3.5-5.1); SODIUM,NA 144 mmol/L (136-145)
--- NOTE | 2020-12-01 14:48 | PCM.PN ---
- General Info Date of Service: 12/01/20 - Review of Systems Systems Review Comment:: feeling better, reports cough, shortness of breath with exertion - Patient Data Vitals - Most Recent: Last Vital Signs Temp 36.7 C 12/01/20 12:00 Pulse 68 11/30/20 16:00 Resp 23 H 12/01/20 14:00 BP 117/70 12/01/20 14:00 Pulse Ox 92 L 12/01/20 14:00 Weight - Most Recent: 92.17 kg I&O - Last 24 Hours: Intake & Output 11/30/20 12/01/20 12/01/20 22:59 06:59 14:59 Intake Total 1250 450 Output Total 650 Balance 1250 -200 Lab Results Last 24 Hours: Laboratory Results - last 24 hr 12/01/20 12/01/20 Range/Units 05:07 05:07 WBC 7.63 (4.0-11.0) K/uL RBC 4.25 L (4.30-5.90) M/uL Hgb 13.0 (12.0-16.0) g/dL Hct 38.8 (36.0-46.0) % MCV 91.3 (80.0-98.0) fL MCH 30.6 (27.0-32.0) pg MCHC 33.5 (31.0-37.0) g/dL RDW Std Deviation 41.8 (28.0-62.0) fl RDW Coeff of Noe 12 (11.0-15.0) % Plt Count 383 (150-400) K/uL MPV 10.30 (7.40-12.00) fL Neut % (Auto) 84.3 H (48.0-80.0) % Lymph % (Auto) 10.5 L (16.0-40.0) % [place] % (Auto) 5.1 (0.0-15.0) % Eos % (Auto) 0.0 (0.0-7.0) % Baso % (Auto) 0.1 (0.0-1.5) % Neut # (Auto) 6.4 H (1.4-5.7) K/uL Lymph # (Auto) 0.8 (0.6-2.4) K/uL [place] # (Auto) 0.4 (0.0-0.8) K/uL Eos # (Auto) 0.0 (0.0-0.7) K/uL Baso # (Auto) 0.0 (0.0-0.1) K/uL Nucleated RBC % 0.0 /100WBC Nucleated RBCs # 0 K/uL Sodium 144 (136-145) mmol/L Potassium 3.9 (3.5-5.1) mmol/L Chloride 106 (98-107) mmol/L Carbon Dioxide 30.0 (21.0-32.0) mmol/L BUN 15 (7.0-18.0) mg/dL Creatinine 0.8 (0.6-1.0) mg/dL Est Cr Clr Drug Dosing 70.37 mL/min Estimated GFR (MDRD) > 60.0 ml/min Glucose 140 H (74-106) mg/dL Calcium 7.7 L (8.5-10.1) mg/dL Total Bilirubin 0.5 (0.2-1.0) mg/dL AST 25 (15-37) IU/L ALT 19 (14-63) IU/L Alkaline Phosphatase 60 (46-116) U/L Total Protein 6.1 L (6.4-8.2) g/dL Albumin 2.3 L (3.4-5.0) g/dL Globulin 3.8 (2.6-4.0) g/dL Albumin/Globulin Ratio 0.6 L (0.9-1.6) Zachariah Results Last 24 Hours: Microbiology 11/27/20 19:45 Urine Culture - Final Urine Escherichia Coli Med Orders - Current: Current Medications Acetaminophen (Acetaminophen 325 Mg Tab) 325 mg PO Q4H PRN PRN Reason: Pain Last Admin: 11/28/20 13:40 Dose: 325 mg Documented by: Albuterol/Ipratropium (Albuterol/Ipratropium 3.0-0.5 Mg/3 Ml Neb Soln) 3 ml NEB Q4HRRT PRN PRN Reason: Shortness Of Breath/wheezing Baricitinib (Baricitinib 2 Mg Tab) 4 mg PO BEDTIME NONA Last Admin: 11/30/20 21:03 Dose: 4 mg Documented by: Dexamethasone (Dexamethasone 4 Mg Tab) 6 mg PO Q24H NONA Last Admin: 11/30/20 17:02 Dose: 6 mg Documented by: Enoxaparin Sodium (Enoxaparin 40 Mg/0.4 Ml Syringe) 40 mg SUBCUT BEDTIME NONA Last Admin: 11/30/20 21:02 Dose: 40 mg Documented by: Remdesivir 100 mg/ Sodium (Chloride) 100 mls @ 100 mls/hr IV Q24H NONA Stop: 12/01/20 16:59 Last Admin: 11/30/20 17:03 Dose: 100 mls/hr Documented by: Ibuprofen (Ibuprofen 200 Mg Tab) 200 mg PO Q6H PRN PRN Reason: Pain Discontinued Medications Albuterol/Ipratropium (Albuterol/Ipratropium 3.0-0.5 Mg/3 Ml Neb Soln) 3 ml NEB ONETIME ONE Stop: 11/27/20 16:50 Last Admin: 11/27/20 16:59 Dose: 3 ml Documented by: Albuterol/Ipratropium (Albuterol/Ipratropium 3.0-0.5 Mg/3 Ml Neb Soln) 3 ml NEB ONETIME ONE Stop: 11/27/20 16:50 Last Admin: 11/27/20 16:59 Dose: 3 ml Documented by: Albuterol/Ipratropium (Albuterol/Ipratropium 3.0-0.5 Mg/3 Ml Neb Soln) 3 ml NEB ONETIME ONE Stop: 11/27/20 16:50 Last Admin: 11/27/20 16:59 Dose: 3 ml Documented by: Dexamethasone (Dexamethasone 10 Mg/Ml Sdv) 10 mg IVPUSH ONETIME ONE Stop: 11/27/20 16:49 Last Admin: 11/27/20 17:09 Dose: 10 mg Documented by: Dexamethasone (Dexamethasone 0.5 Mg Tab) 6 mg PO Q24H NONA Last Admin: 11/28/20 18:38 Dose: Not Given Documented by: Sodium Chloride (Normal Saline) 1,000 mls @ 999 mls/hr IV BOLUS ONE Stop: 11/27/20 17:47 Last Admin: 11/27/20 16:58 Dose: 999 mls/hr Documented by: Magnesium Sulfate 3 gm/ (Dextrose/Water) 106 mls @ 212 mls/hr IV STAT STA Stop: 11/27/20 17:25 Last Admin: 11/27/20 17:13 Dose: 212 mls/hr Documented by: Remdesivir 200 mg/ Sodium (Chloride) 250 mls @ 250 mls/hr IV ONETIME ONE Stop: 11/27/20 19:51 Last Admin: 11/27/20 23:08 Dose: 250 mls/hr Documented by: Iopamidol (Iopamidol 755 Mg/Ml 500 Ml Multipack Bottle) 100 ml IVPUSH ONETIME STA Stop: 11/27/20 18:19 Last Admin: 11/28/20 04:01 Dose: Not Given Documented by: Potassium Chloride (Potassium Chloride 20 Meq Tab.Er) 40 meq PO ONETIME ONE Stop: 11/28/20 10:16 Last Admin: 11/28/20 11:04 Dose: 40 meq Documented by: - Exam General: Alert, Oriented Neck: Supple Lungs: Normal Respiratory Effort, Rhonchi Cardiovascular: Regular Rate, Regular Rhythm GI/Abdominal Exam: Soft, Non-Tender, No Distention Extremities: Non-Tender, No Pedal Edema Skin: Warm, Dry, Intact Neurological: No New Focal Deficit - Patient Data Lab Results Last 24 hrs: Laboratory Results - last 24 hr 12/01/20 12/01/20 Range/Units 05:07 05:07 WBC 7.63 (4.0-11.0) K/uL RBC 4.25 L (4.30-5.90) M/uL Hgb 13.0 (12.0-16.0) g/dL Hct 38.8 (36.0-46.0) % MCV 91.3 (80.0-98.0) fL MCH 30.6 (27.0-32.0) pg MCHC 33.5 (31.0-37.0) g/dL RDW Std Deviation 41.8 (28.0-62.0) fl RDW Coeff of Noe 12 (11.0-15.0) % Plt Count 383 (150-400) K/uL MPV 10.30 (7.40-12.00) fL Neut % (Auto) 84.3 H (48.0-80.0) % Lymph % (Auto) 10.5 L (16.0-40.0) % Carlton % (Auto) 5.1 (0.0-15.0) % Eos % (Auto) 0.0 (0.0-7.0) % Baso % (Auto) 0.1 (0.0-1.5) % Neut # (Auto) 6.4 H (1.4-5.7) K/uL Lymph # (Auto) 0.8 (0.6-2.4) K/uL Carlton # (Auto) 0.4 (0.0-0.8) K/uL Eos # (Auto) 0.0 (0.0-0.7) K/uL Baso # (Auto) 0.0 (0.0-0.1) K/uL Nucleated RBC % 0.0 /100WBC Nucleated RBCs # 0 K/uL Sodium 144 (136-145) mmol/L Potassium 3.9 (3.5-5.1) mmol/L Chloride 106 (98-107) mmol/L Carbon Dioxide 30.0 (21.0-32.0) mmol/L BUN 15 (7.0-18.0) mg/dL Creatinine 0.8 (0.6-1.0) mg/dL Est Cr Clr Drug Dosing 70.37 mL/min Estimated GFR (MDRD) > 60.0 ml/min Glucose 140 H (74-106) mg/dL Calcium 7.7 L (8.5-10.1) mg/dL Total Bilirubin 0.5 (0.2-1.0) mg/dL AST 25 (15-37) IU/L ALT 19 (14-63) IU/L Alkaline Phosphatase 60 (46-116) U/L Total Protein 6.1 L (6.4-8.2) g/dL Albumin 2.3 L (3.4-5.0) g/dL Globulin 3.8 (2.6-4.0) g/dL Albumin/Globulin Ratio 0.6 L (0.9-1.6) Result Diagrams: 12/01/20 05:07 12/01/20 05:07 Zachariah Results Last 24 hrs: Microbiology 11/27/20 19:45 Urine Culture - Final Urine Escherichia Coli Sepsis Event Note - Evaluation Sepsis Screening Result: No Definite Risk - Focused Exam Vital Signs: Vital Signs Temp Resp BP Pulse Ox 12/01/20 14:00 23 H 117/70 92 L 12/01/20 13:00 19 137/63 93 L 12/01/20 12:00 36.7 C 16 127/64 92 L 12/01/20 11:00 21 H 134/74 90 L 12/01/20 10:00 21 H 119/78 90 L 12/01/20 09:00 15 134/62 93 L 12/01/20 08:00 36.8 C 25 H 130/67 93 L 12/01/20 07:00 21 H 144/83 H 93 L 12/01/20 06:00 23 H 132/77 94 L 12/01/20 05:00 23 H 122/75 96 12/01/20 04:00 37 C 27 H 132/80 94 L 12/01/20 03:00 28 H 111/60 93 L - Problem List & Annotations (1) Acute respiratory failure SNOMED Code(s): 32761651 Code(s): J96.00 - ACUTE RESPIRATORY FAILURE, UNSP W HYPOXIA OR HYPERCAPNIA Status: Acute Current Visit: Yes Qualifiers: Respiratory failure complication: hypoxia Qualified Code(s): J96.01 - Acute respiratory failure with hypoxia (2) COVID-19 virus infection SNOMED Code(s): 351292879 Code(s): U07.1 - COVID-19 Status: Acute Current Visit: Yes - Problem List Review Problem List Initiated/Reviewed/Updated: Yes - My Orders Last 24 Hours: My Active Orders 12/02/20 05:11 CBC WITH AUTO DIFF [HEME] AM COMPREHENSIVE METABOLIC PN,CMP [CHEM] AM - Plan Plan:: 50 yo female admitted for acute hypoxic respiratory failure from COVID-19 pneumonia Hypoxia:patient weaned to HHFNC this morning, May need CPAP again tonight. COVID-19: will continue remdesivir, dexamethasone, barcitinib, and lovenox for DVT prophylaxis
[2020-12-01] MEDS: REMDESIVIR 100 MG in Sodium Chloride 0.9% 100 ML IV SCH (16:12)
[2020-12-01] MEDS: Dexamethasone 4 MG Tab PO SCH (16:12)
[2020-12-01] MEDS: Enoxaparin 40 MG/0.4 ML Syringe SUBCUT SCH (20:04)
[2020-12-02 06:39] LABS: BLOOD UREA NITROGEN,BUN 16 mg/dL (7.0-18.0); CARBON DIOXIDE,CO2 29.2 mmol/L (21.0-32.0); CHLORIDE,CL 106 mmol/L (98-107); GLUCOSE RANDOM 173 mg/dL (74-106); POTASSIUM,K 3.8 mmol/L (3.5-5.1); SODIUM,NA 143 mmol/L (136-145)
--- NOTE | 2020-12-02 15:02 | PCM.PN ---
- Patient Data Vitals - Most Recent: Last Vital Signs Temp 97.8 F 12/02/20 12:00 Pulse 68 11/30/20 16:00 Resp 16 12/02/20 14:00 BP 150/89 H 12/02/20 14:00 Pulse Ox 92 L 12/02/20 14:00 Weight - Most Recent: 203 lb 3.2 oz I&O - Last 24 Hours: Intake & Output 12/02/20 12/02/20 12/02/20 06:59 14:59 22:59 Intake Total 550 Output Total 1200 Balance -650 Lab Results Last 24 Hours: Laboratory Results - last 24 hr 12/02/20 12/02/20 Range/Units 05:52 05:52 WBC 7.58 (4.0-11.0) K/uL RBC 4.27 L (4.30-5.90) M/uL Hgb 13.2 (12.0-16.0) g/dL Hct 38.3 (36.0-46.0) % MCV 89.7 (80.0-98.0) fL MCH 30.9 (27.0-32.0) pg MCHC 34.5 (31.0-37.0) g/dL RDW Std Deviation 39.4 (28.0-62.0) fl RDW Coeff of Noe 12 (11.0-15.0) % Plt Count 392 (150-400) K/uL MPV 9.70 (7.40-12.00) fL Neut % (Auto) 87.8 H (48.0-80.0) % Lymph % (Auto) 9.5 L (16.0-40.0) % [place] % (Auto) 2.6 (0.0-15.0) % Eos % (Auto) 0.1 (0.0-7.0) % Baso % (Auto) 0.0 (0.0-1.5) % Neut # (Auto) 6.7 H (1.4-5.7) K/uL Lymph # (Auto) 0.7 (0.6-2.4) K/uL [place] # (Auto) 0.2 (0.0-0.8) K/uL Eos # (Auto) 0.0 (0.0-0.7) K/uL Baso # (Auto) 0.0 (0.0-0.1) K/uL Nucleated RBC % 0.0 /100WBC Nucleated RBCs # 0 K/uL Sodium 143 (136-145) mmol/L Potassium 3.8 (3.5-5.1) mmol/L Chloride 106 (98-107) mmol/L Carbon Dioxide 29.2 (21.0-32.0) mmol/L BUN 16 (7.0-18.0) mg/dL Creatinine 0.8 (0.6-1.0) mg/dL Est Cr Clr Drug Dosing 70.37 mL/min Estimated GFR (MDRD) > 60.0 ml/min Glucose 173 H (74-106) mg/dL Calcium 7.6 L (8.5-10.1) mg/dL Total Bilirubin 0.3 (0.2-1.0) mg/dL AST 20 (15-37) IU/L ALT 20 (14-63) IU/L Alkaline Phosphatase 57 (46-116) U/L Total Protein 5.9 L (6.4-8.2) g/dL Albumin 2.3 L (3.4-5.0) g/dL Globulin 3.6 (2.6-4.0) g/dL Albumin/Globulin Ratio 0.6 L (0.9-1.6) Zachariah Results Last 24 Hours: Microbiology 11/27/20 19:45 Urine Culture - Final Urine Escherichia Coli Med Orders - Current: Current Medications Acetaminophen (Acetaminophen 325 Mg Tab) 325 mg PO Q4H PRN PRN Reason: Pain Last Admin: 11/28/20 13:40 Dose: 325 mg Documented by: Albuterol/Ipratropium (Albuterol/Ipratropium 3.0-0.5 Mg/3 Ml Neb Soln) 3 ml NEB Q4HRRT PRN PRN Reason: Shortness Of Breath/wheezing Baricitinib (Baricitinib 2 Mg Tab) 4 mg PO BEDTIME NONA Last Admin: 12/01/20 20:04 Dose: 4 mg Documented by: Dexamethasone (Dexamethasone 4 Mg Tab) 6 mg PO Q24H NONA Last Admin: 12/01/20 16:12 Dose: 6 mg Documented by: Enoxaparin Sodium (Enoxaparin 40 Mg/0.4 Ml Syringe) 40 mg SUBCUT BEDTIME NONA Last Admin: 12/01/20 20:04 Dose: 40 mg Documented by: Ceftriaxone Sodium/Dextrose (Rocephin In Dextrose,Iso-Osm 1 Gm/50 Ml) 50 mls @ 100 mls/hr IV Q24H NONA Last Admin: 12/01/20 20:05 Dose: 100 mls/hr Documented by: Ibuprofen (Ibuprofen 200 Mg Tab) 200 mg PO Q6H PRN PRN Reason: Pain Discontinued Medications Albuterol/Ipratropium (Albuterol/Ipratropium 3.0-0.5 Mg/3 Ml Neb Soln) 3 ml NEB ONETIME ONE Stop: 11/27/20 16:50 Last Admin: 11/27/20 16:59 Dose: 3 ml Documented by: Albuterol/Ipratropium (Albuterol/Ipratropium 3.0-0.5 Mg/3 Ml Neb Soln) 3 ml NEB ONETIME ONE Stop: 11/27/20 16:50 Last Admin: 11/27/20 16:59 Dose: 3 ml Documented by: Albuterol/Ipratropium (Albuterol/Ipratropium 3.0-0.5 Mg/3 Ml Neb Soln) 3 ml NEB ONETIME ONE Stop: 11/27/20 16:50 Last Admin: 11/27/20 16:59 Dose: 3 ml Documented by: Dexamethasone (Dexamethasone 10 Mg/Ml Sdv) 10 mg IVPUSH ONETIME ONE Stop: 11/27/20 16:49 Last Admin: 11/27/20 17:09 Dose: 10 mg Documented by: Dexamethasone (Dexamethasone 0.5 Mg Tab) 6 mg PO Q24H NONA Last Admin: 11/28/20 18:38 Dose: Not Given Documented by: Sodium Chloride (Normal Saline) 1,000 mls @ 999 mls/hr IV BOLUS ONE Stop: 11/27/20 17:47 Last Admin: 11/27/20 16:58 Dose: 999 mls/hr Documented by: Magnesium Sulfate 3 gm/ (Dextrose/Water) 106 mls @ 212 mls/hr IV STAT STA Stop: 11/27/20 17:25 Last Admin: 11/27/20 17:13 Dose: 212 mls/hr Documented by: Remdesivir 200 mg/ Sodium (Chloride) 250 mls @ 250 mls/hr IV ONETIME ONE Stop: 11/27/20 19:51 Last Admin: 11/27/20 23:08 Dose: 250 mls/hr Documented by: Remdesivir 100 mg/ Sodium (Chloride) 100 mls @ 100 mls/hr IV Q24H NONA Stop: 12/01/20 16:59 Last Admin: 12/01/20 16:12 Dose: 100 mls/hr Documented by: Iopamidol (Iopamidol 755 Mg/Ml 500 Ml Multipack Bottle) 100 ml IVPUSH ONETIME STA Stop: 11/27/20 18:19 Last Admin: 11/28/20 04:01 Dose: Not Given Documented by: Potassium Chloride (Potassium Chloride 20 Meq Tab.Er) 40 meq PO ONETIME ONE Stop: 11/28/20 10:16 Last Admin: 11/28/20 11:04 Dose: 40 meq Documented by: - Patient Data Lab Results Last 24 hrs: Laboratory Results - last 24 hr 12/02/20 12/02/20 Range/Units 05:52 05:52 WBC 7.58 (4.0-11.0) K/uL RBC 4.27 L (4.30-5.90) M/uL Hgb 13.2 (12.0-16.0) g/dL Hct 38.3 (36.0-46.0) % MCV 89.7 (80.0-98.0) fL MCH 30.9 (27.0-32.0) pg MCHC 34.5 (31.0-37.0) g/dL RDW Std Deviation 39.4 (28.0-62.0) fl RDW Coeff of Noe 12 (11.0-15.0) % Plt Count 392 (150-400) K/uL MPV 9.70 (7.40-12.00) fL Neut % (Auto) 87.8 H (48.0-80.0) % Lymph % (Auto) 9.5 L (16.0-40.0) % [place] % (Auto) 2.6 (0.0-15.0) % Eos % (Auto) 0.1 (0.0-7.0) % Baso % (Auto) 0.0 (0.0-1.5) % Neut # (Auto) 6.7 H (1.4-5.7) K/uL Lymph # (Auto) 0.7 (0.6-2.4) K/uL [place] # (Auto) 0.2 (0.0-0.8) K/uL Eos # (Auto) 0.0 (0.0-0.7) K/uL Baso # (Auto) 0.0 (0.0-0.1) K/uL Nucleated RBC % 0.0 /100WBC Nucleated RBCs # 0 K/uL Sodium 143 (136-145) mmol/L Potassium 3.8 (3.5-5.1) mmol/L Chloride 106 (98-107) mmol/L Carbon Dioxide 29.2 (21.0-32.0) mmol/L BUN 16 (7.0-18.0) mg/dL Creatinine 0.8 (0.6-1.0) mg/dL Est Cr Clr Drug Dosing 70.37 mL/min Estimated GFR (MDRD) > 60.0 ml/min Glucose 173 H (74-106) mg/dL Calcium 7.6 L (8.5-10.1) mg/dL Total Bilirubin 0.3 (0.2-1.0) mg/dL AST 20 (15-37) IU/L ALT 20 (14-63) IU/L Alkaline Phosphatase 57 (46-116) U/L Total Protein 5.9 L (6.4-8.2) g/dL Albumin 2.3 L (3.4-5.0) g/dL Globulin 3.6 (2.6-4.0) g/dL Albumin/Globulin Ratio 0.6 L (0.9-1.6) Result Diagrams: 12/02/20 05:52 12/02/20 05:52 Zachariah Results Last 24 hrs: Microbiology 11/27/20 19:45 Urine Culture - Final Urine Escherichia Coli Sepsis Event Note - Evaluation Sepsis Screening Result: Possible Sepsis Risk - Focused Exam Vital Signs: Vital Signs Temp Resp BP Pulse Ox Pulse Ox 12/02/20 14:00 16 150/89 H 92 L 12/02/20 13:00 20 135/66 97 12/02/20 12:00 97.8 F 37 H 122/63 87 L 12/02/20 11:00 24 H 122/68 94 L 12/02/20 10:00 15 148/71 H 93 L 12/02/20 09:00 18 133/82 95 12/02/20 08:00 11 L 111/60 96 12/02/20 07:00 17 115/50 L 93 L 12/02/20 06:31 93 L 12/02/20 06:00 115/66 95 12/02/20 05:00 25 H 117/54 L 97 12/02/20 04:00 98.7 F 21 H 124/67 96 - Problem List & Annotations (1) Acute respiratory failure SNOMED Code(s): 30108851 Code(s): J96.00 - ACUTE RESPIRATORY FAILURE, UNSP W HYPOXIA OR HYPERCAPNIA Status: Acute Current Visit: Yes Qualifiers: Respiratory failure complication: hypoxia Qualified Code(s): J96.01 - Acute respiratory failure with hypoxia (2) COVID-19 virus infection SNOMED Code(s): 319014208 Code(s): U07.1 - COVID-19 Status: Acute Current Visit: Yes (3) Hypoxia SNOMED Code(s): 979391202 Code(s): R09.02 - HYPOXEMIA Status: Acute Current Visit: Yes - Problem List Review Problem List Initiated/Reviewed/Updated: Yes - My Orders Last 24 Hours: My Active Orders 12/03/20 05:11 CBC WITH AUTO DIFF [HEME] AM CMP [COMPREHENSIVE METABOLIC PN,CMP] [CHEM] AM - Plan Plan:: Acute hypoxic respiratory failure from COVID-19 pneumonia Currently on high flow, flow 40 FiO2 50. Patient stated she did use CPAP last night which aided in her breathing this morning, Patient may use CPAP again this evening remdesivir, dexamethasone, barcitinib, and lovenox for DVT prophylaxis
--- NOTE | 2020-12-02 15:04 | PCM.PN ---
<Corbin Tidwell - Last Filed: 12/02/20 15:07> - General Info Date of Service: 12/02/20 - Review of Systems General: Reports: Fatigue. Denies: Fever, Chills Pulmonary: Reports: Shortness of Breath, Cough Cardiovascular: Denies: Chest Pain, Orthopnea, Edema Gastrointestinal: Denies: Abdominal Pain, Decreased Appetite, Nausea, Vomiting Neurological: Denies: Confusion - Patient Data Vitals - Most Recent: Last Vital Signs Temp 97.8 F 12/02/20 12:00 Pulse 68 11/30/20 16:00 Resp 16 12/02/20 14:00 BP 150/89 H 12/02/20 14:00 Pulse Ox 92 L 12/02/20 14:00 Weight - Most Recent: 92.17 kg I&O - Last 24 Hours: Intake & Output 12/02/20 12/02/20 12/02/20 06:59 14:59 22:59 Intake Total 550 Output Total 1200 Balance -650 Lab Results Last 24 Hours: Laboratory Results - last 24 hr 12/02/20 12/02/20 Range/Units 05:52 05:52 WBC 7.58 (4.0-11.0) K/uL RBC 4.27 L (4.30-5.90) M/uL Hgb 13.2 (12.0-16.0) g/dL Hct 38.3 (36.0-46.0) % MCV 89.7 (80.0-98.0) fL MCH 30.9 (27.0-32.0) pg MCHC 34.5 (31.0-37.0) g/dL RDW Std Deviation 39.4 (28.0-62.0) fl RDW Coeff of Noe 12 (11.0-15.0) % Plt Count 392 (150-400) K/uL MPV 9.70 (7.40-12.00) fL Neut % (Auto) 87.8 H (48.0-80.0) % Lymph % (Auto) 9.5 L (16.0-40.0) % [place] % (Auto) 2.6 (0.0-15.0) % Eos % (Auto) 0.1 (0.0-7.0) % Baso % (Auto) 0.0 (0.0-1.5) % Neut # (Auto) 6.7 H (1.4-5.7) K/uL Lymph # (Auto) 0.7 (0.6-2.4) K/uL [place] # (Auto) 0.2 (0.0-0.8) K/uL Eos # (Auto) 0.0 (0.0-0.7) K/uL Baso # (Auto) 0.0 (0.0-0.1) K/uL Nucleated RBC % 0.0 /100WBC Nucleated RBCs # 0 K/uL Sodium 143 (136-145) mmol/L Potassium 3.8 (3.5-5.1) mmol/L Chloride 106 (98-107) mmol/L Carbon Dioxide 29.2 (21.0-32.0) mmol/L BUN 16 (7.0-18.0) mg/dL Creatinine 0.8 (0.6-1.0) mg/dL Est Cr Clr Drug Dosing 70.37 mL/min Estimated GFR (MDRD) > 60.0 ml/min Glucose 173 H (74-106) mg/dL Calcium 7.6 L (8.5-10.1) mg/dL Total Bilirubin 0.3 (0.2-1.0) mg/dL AST 20 (15-37) IU/L ALT 20 (14-63) IU/L Alkaline Phosphatase 57 (46-116) U/L Total Protein 5.9 L (6.4-8.2) g/dL Albumin 2.3 L (3.4-5.0) g/dL Globulin 3.6 (2.6-4.0) g/dL Albumin/Globulin Ratio 0.6 L (0.9-1.6) Zachariah Results Last 24 Hours: Microbiology 11/27/20 19:45 Urine Culture - Final Urine Escherichia Coli Med Orders - Current: Current Medications Acetaminophen (Acetaminophen 325 Mg Tab) 325 mg PO Q4H PRN PRN Reason: Pain Last Admin: 11/28/20 13:40 Dose: 325 mg Documented by: Albuterol/Ipratropium (Albuterol/Ipratropium 3.0-0.5 Mg/3 Ml Neb Soln) 3 ml NEB Q4HRRT PRN PRN Reason: Shortness Of Breath/wheezing Baricitinib (Baricitinib 2 Mg Tab) 4 mg PO BEDTIME NONA Last Admin: 12/01/20 20:04 Dose: 4 mg Documented by: Dexamethasone (Dexamethasone 4 Mg Tab) 6 mg PO Q24H NONA Last Admin: 12/01/20 16:12 Dose: 6 mg Documented by: Enoxaparin Sodium (Enoxaparin 40 Mg/0.4 Ml Syringe) 40 mg SUBCUT BEDTIME NONA Last Admin: 12/01/20 20:04 Dose: 40 mg Documented by: Ceftriaxone Sodium/Dextrose (Rocephin In Dextrose,Iso-Osm 1 Gm/50 Ml) 50 mls @ 100 mls/hr IV Q24H NONA Last Admin: 12/01/20 20:05 Dose: 100 mls/hr Documented by: Ibuprofen (Ibuprofen 200 Mg Tab) 200 mg PO Q6H PRN PRN Reason: Pain Discontinued Medications Albuterol/Ipratropium (Albuterol/Ipratropium 3.0-0.5 Mg/3 Ml Neb Soln) 3 ml NEB ONETIME ONE Stop: 11/27/20 16:50 Last Admin: 11/27/20 16:59 Dose: 3 ml Documented by: Albuterol/Ipratropium (Albuterol/Ipratropium 3.0-0.5 Mg/3 Ml Neb Soln) 3 ml NEB ONETIME ONE Stop: 11/27/20 16:50 Last Admin: 11/27/20 16:59 Dose: 3 ml Documented by: Albuterol/Ipratropium (Albuterol/Ipratropium 3.0-0.5 Mg/3 Ml Neb Soln) 3 ml NEB ONETIME ONE Stop: 11/27/20 16:50 Last Admin: 11/27/20 16:59 Dose: 3 ml Documented by: Dexamethasone (Dexamethasone 10 Mg/Ml Sdv) 10 mg IVPUSH ONETIME ONE Stop: 11/27/20 16:49 Last Admin: 11/27/20 17:09 Dose: 10 mg Documented by: Dexamethasone (Dexamethasone 0.5 Mg Tab) 6 mg PO Q24H NONA Last Admin: 11/28/20 18:38 Dose: Not Given Documented by: Sodium Chloride (Normal Saline) 1,000 mls @ 999 mls/hr IV BOLUS ONE Stop: 11/27/20 17:47 Last Admin: 11/27/20 16:58 Dose: 999 mls/hr Documented by: Magnesium Sulfate 3 gm/ (Dextrose/Water) 106 mls @ 212 mls/hr IV STAT STA Stop: 11/27/20 17:25 Last Admin: 11/27/20 17:13 Dose: 212 mls/hr Documented by: Remdesivir 200 mg/ Sodium (Chloride) 250 mls @ 250 mls/hr IV ONETIME ONE Stop: 11/27/20 19:51 Last Admin: 11/27/20 23:08 Dose: 250 mls/hr Documented by: Remdesivir 100 mg/ Sodium (Chloride) 100 mls @ 100 mls/hr IV Q24H NONA Stop: 12/01/20 16:59 Last Admin: 12/01/20 16:12 Dose: 100 mls/hr Documented by: Iopamidol (Iopamidol 755 Mg/Ml 500 Ml Multipack Bottle) 100 ml IVPUSH ONETIME STA Stop: 11/27/20 18:19 Last Admin: 11/28/20 04:01 Dose: Not Given Documented by: Potassium Chloride (Potassium Chloride 20 Meq Tab.Er) 40 meq PO ONETIME ONE Stop: 11/28/20 10:16 Last Admin: 11/28/20 11:04 Dose: 40 meq Documented by: - Exam Quality Assessment: Supplemental Oxygen (hhf) General: Alert, Oriented Lungs: Normal Respiratory Effort, Rhonchi GI/Abdominal Exam: Soft, Non-Tender, No Distention Extremities: No Pedal Edema Psy/Mental Status: Alert - Patient Data Lab Results Last 24 hrs: Laboratory Results - last 24 hr 12/02/20 12/02/20 Range/Units 05:52 05:52 WBC 7.58 (4.0-11.0) K/uL RBC 4.27 L (4.30-5.90) M/uL Hgb 13.2 (12.0-16.0) g/dL Hct 38.3 (36.0-46.0) % MCV 89.7 (80.0-98.0) fL MCH 30.9 (27.0-32.0) pg MCHC 34.5 (31.0-37.0) g/dL RDW Std Deviation 39.4 (28.0-62.0) fl RDW Coeff of Noe 12 (11.0-15.0) % Plt Count 392 (150-400) K/uL MPV 9.70 (7.40-12.00) fL Neut % (Auto) 87.8 H (48.0-80.0) % Lymph % (Auto) 9.5 L (16.0-40.0) % [place] % (Auto) 2.6 (0.0-15.0) % Eos % (Auto) 0.1 (0.0-7.0) % Baso % (Auto) 0.0 (0.0-1.5) % Neut # (Auto) 6.7 H (1.4-5.7) K/uL Lymph # (Auto) 0.7 (0.6-2.4) K/uL [place] # (Auto) 0.2 (0.0-0.8) K/uL Eos # (Auto) 0.0 (0.0-0.7) K/uL Baso # (Auto) 0.0 (0.0-0.1) K/uL Nucleated RBC % 0.0 /100WBC Nucleated RBCs # 0 K/uL Sodium 143 (136-145) mmol/L Potassium 3.8 (3.5-5.1) mmol/L Chloride 106 (98-107) mmol/L Carbon Dioxide 29.2 (21.0-32.0) mmol/L BUN 16 (7.0-18.0) mg/dL Creatinine 0.8 (0.6-1.0) mg/dL Est Cr Clr Drug Dosing 70.37 mL/min Estimated GFR (MDRD) > 60.0 ml/min Glucose 173 H (74-106) mg/dL Calcium 7.6 L (8.5-10.1) mg/dL Total Bilirubin 0.3 (0.2-1.0) mg/dL AST 20 (15-37) IU/L ALT 20 (14-63) IU/L Alkaline Phosphatase 57 (46-116) U/L Total Protein 5.9 L (6.4-8.2) g/dL Albumin 2.3 L (3.4-5.0) g/dL Globulin 3.6 (2.6-4.0) g/dL Albumin/Globulin Ratio 0.6 L (0.9-1.6) Result Diagrams: 12/02/20 05:52 12/02/20 05:52 Zachariah Results Last 24 hrs: Microbiology 11/27/20 19:45 Urine Culture - Final Urine Escherichia Coli Sepsis Event Note - Evaluation Sepsis Screening Result: Possible Sepsis Risk - Focused Exam Vital Signs: Vital Signs Temp Resp BP Pulse Ox Pulse Ox 12/02/20 14:00 16 150/89 H 92 L 12/02/20 13:00 20 135/66 97 12/02/20 12:00 97.8 F 37 H 122/63 87 L 12/02/20 11:00 24 H 122/68 94 L 12/02/20 10:00 15 148/71 H 93 L 12/02/20 09:00 18 133/82 95 12/02/20 08:00 11 L 111/60 96 12/02/20 07:00 17 115/50 L 93 L 12/02/20 06:31 93 L 12/02/20 06:00 115/66 95 12/02/20 05:00 25 H 117/54 L 97 12/02/20 04:00 98.7 F 21 H 124/67 96 - Problem List & Annotations (1) Acute respiratory failure SNOMED Code(s): 03950527 Code(s): J96.00 - ACUTE RESPIRATORY FAILURE, UNSP W HYPOXIA OR HYPERCAPNIA Status: Acute Qualifiers: Respiratory failure complication: hypoxia Qualified Code(s): J96.01 - Acute respiratory failure with hypoxia (2) COVID-19 virus infection SNOMED Code(s): 587457035 Code(s): U07.1 - COVID-19 Status: Acute (3) Hypoxia SNOMED Code(s): 537547185 Code(s): R09.02 - HYPOXEMIA Status: Acute - Problem List Review Problem List Initiated/Reviewed/Updated: Yes - My Orders Last 24 Hours: My Active Orders 12/03/20 05:11 CBC WITH AUTO DIFF [HEME] AM CMP [COMPREHENSIVE METABOLIC PN,CMP] [CHEM] AM - Plan Plan:: Acute hypoxic respiratory failure from COVID-19 pneumonia Currently on high flow, flow 40 FiO2 50. Patient stated she did use CPAP last night which aided in her breathing this morning, Patient may use CPAP again this evening remdesivir completed, dexamethasone, barcitinib, and lovenox for DVT prophylaxis UTI- Rocephin 1g q24hr <Anthony Celeste - Last Filed: 12/05/20 23:10> - Patient Data Vitals - Most Recent: Last Vital Signs Temp 36.1 C 12/04/20 12:00 Pulse 75 12/04/20 12:00 Resp 18 12/04/20 12:00 BP 122/71 12/04/20 12:00 Pulse Ox 92 L 12/04/20 12:00 Med Orders - Current: Current Medications Discontinued Medications Acetaminophen (Acetaminophen 325 Mg Tab) 325 mg PO Q4H PRN PRN Reason: Pain Last Admin: 12/04/20 09:47 Dose: 325 mg Documented by: Albuterol/Ipratropium (Albuterol/Ipratropium 3.0-0.5 Mg/3 Ml Neb Soln) 3 ml NEB ONETIME ONE Stop: 11/27/20 16:50 Last Admin: 11/27/20 16:59 Dose: 3 ml Documented by: Albuterol/Ipratropium (Albuterol/Ipratropium 3.0-0.5 Mg/3 Ml Neb Soln) 3 ml NEB ONETIME ONE Stop: 11/27/20 16:50 Last Admin: 11/27/20 16:59 Dose: 3 ml Documented by: Albuterol/Ipratropium (Albuterol/Ipratropium 3.0-0.5 Mg/3 Ml Neb Soln) 3 ml NEB ONETIME ONE Stop: 11/27/20 16:50 Last Admin: 11/27/20 16:59 Dose: 3 ml Documented by: Albuterol/Ipratropium (Albuterol/Ipratropium 3.0-0.5 Mg/3 Ml Neb Soln) 3 ml NEB Q4HRRT PRN PRN Reason: Shortness Of Breath/wheezing Last Admin: 12/03/20 07:41 Dose: 3 ml Documented by: Baricitinib (Baricitinib 2 Mg Tab) 4 mg PO BEDTIME NONA Last Admin: 12/03/20 20:03 Dose: 4 mg Documented by: Dexamethasone (Dexamethasone 10 Mg/Ml Sdv) 10 mg IVPUSH ONETIME ONE Stop: 11/27/20 16:49 Last Admin: 11/27/20 17:09 Dose: 10 mg Documented by: Dexamethasone (Dexamethasone 0.5 Mg Tab) 6 mg PO Q24H NONA Last Admin: 11/28/20 18:38 Dose: Not Given Documented by: Dexamethasone (Dexamethasone 4 Mg Tab) 6 mg PO Q24H NONA Last Admin: 12/03/20 16:42 Dose: 6 mg Documented by: Enoxaparin Sodium (Enoxaparin 40 Mg/0.4 Ml Syringe) 40 mg SUBCUT BEDTIME NONA Last Admin: 12/03/20 20:03 Dose: 40 mg Documented by: Sodium Chloride (Normal Saline) 1,000 mls @ 999 mls/hr IV BOLUS ONE Stop: 11/27/20 17:47 Last Admin: 11/27/20 16:58 Dose: 999 mls/hr Documented by: Magnesium Sulfate 3 gm/ (Dextrose/Water) 106 mls @ 212 mls/hr IV STAT STA Stop: 11/27/20 17:25 Last Admin: 11/27/20 17:13 Dose: 212 mls/hr Documented by: Remdesivir 200 mg/ Sodium (Chloride) 250 mls @ 250 mls/hr IV ONETIME ONE Stop: 11/27/20 19:51 Last Admin: 11/27/20 23:08 Dose: 250 mls/hr Documented by: Remdesivir 100 mg/ Sodium (Chloride) 100 mls @ 100 mls/hr IV Q24H NONA Stop: 12/01/20 16:59 Last Admin: 12/01/20 16:12 Dose: 100 mls/hr Documented by: Ceftriaxone Sodium/Dextrose (Rocephin In Dextrose,Iso-Osm 1 Gm/50 Ml) 50 mls @ 100 mls/hr IV Q24H [facility] Last Admin: 12/03/20 19:56 Dose: 100 mls/hr Documented by: Ibuprofen (Ibuprofen 200 Mg Tab) 200 mg PO Q6H PRN PRN Reason: Pain Iopamidol (Iopamidol 755 Mg/Ml 500 Ml Multipack Bottle) 100 ml IVPUSH ONETIME STA Stop: 11/27/20 18:19 Last Admin: 11/28/20 04:01 Dose: Not Given Documented by: Potassium Chloride (Potassium Chloride 20 Meq Tab.Er) 40 meq PO ONETIME ONE Stop: 11/28/20 10:16 Last Admin: 11/28/20 11:04 Dose: 40 meq Documented by: - Patient Data Result Diagrams: 12/04/20 05:45 12/04/20 05:45 - Problem List & Annotations (1) Acute respiratory failure SNOMED Code(s): 21009534 Code(s): J96.00 - ACUTE RESPIRATORY FAILURE, UNSP W HYPOXIA OR HYPERCAPNIA Status: Acute Qualifiers: Respiratory failure complication: hypoxia Qualified Code(s): J96.01 - Acute respiratory failure with hypoxia (2) COVID-19 virus infection SNOMED Code(s): 036637181 Code(s): U07.1 - COVID-19 Status: Acute (3) Hypoxia SNOMED Code(s): 733632485 Code(s): R09.02 - HYPOXEMIA Status: Acute (4) Gastroenteritis due to COVID-19 virus SNOMED Code(s): 622781039 Code(s): U07.1 - COVID-19; A08.39 - OTHER VIRAL ENTERITIS Status: Acute - Plan Plan:: I have seen and evaluated the patient and agree with the residents note unless specified in my note
[2020-12-02] MEDS: Dexamethasone 4 MG Tab PO SCH (15:25)
[2020-12-02] MEDS: Enoxaparin 40 MG/0.4 ML Syringe SUBCUT SCH (20:17)
[2020-12-03 06:58] LABS: BLOOD UREA NITROGEN,BUN 19 mg/dL (7.0-18.0); CARBON DIOXIDE,CO2 27.8 mmol/L (21.0-32.0); CHLORIDE,CL 107 mmol/L (98-107); GLUCOSE RANDOM 183 mg/dL (74-106); POTASSIUM,K 3.5 mmol/L (3.5-5.1); SODIUM,NA 143 mmol/L (136-145)
--- NOTE | 2020-12-03 13:47 | PCM.PN ---
- General Info Date of Service: 12/03/20 Admission Dx/Problem (Free Text): Admission Diagnosis/Problem Admission Diagnosis/Problem Hypoxia Subjective Update: Patient seen at bedside, appears to have improved since yesterday currently on regular high flow requiring 6 L of oxygen, she feels much better and is able to breathe easily. Functional Status: Reports: Tolerating Diet, Ambulating, Urinating - Review of Systems General: Reports: Weakness, Fatigue, Malaise. Denies: Fever Pulmonary: Reports: Shortness of Breath, Cough, Sputum Cardiovascular: Reports: Dyspnea on Exertion. Denies: Chest Pain, Palpitations, Orthopnea Gastrointestinal: Denies: Abdominal Pain, Constipation, Decreased Appetite Genitourinary: Denies: Dysuria, Frequency, Burning, Pain Musculoskeletal: Denies: Neck Pain, Shoulder Pain, Arm Pain, Hand Pain - Patient Data Vitals - Most Recent: Last Vital Signs Temp 36.4 C 12/03/20 13:00 Pulse 68 11/30/20 16:00 Resp 18 12/03/20 13:00 BP 155/80 H 12/03/20 12:00 Pulse Ox 95 12/03/20 13:00 Weight - Most Recent: 96.207 kg I&O - Last 24 Hours: Intake & Output 12/02/20 12/03/20 12/03/20 22:59 06:59 14:59 Intake Total 800 700 Output Total 1050 800 Balance -250 -100 Lab Results Last 24 Hours: Laboratory Results - last 24 hr 12/03/20 12/03/20 Range/Units 06:18 06:18 WBC 8.86 (4.0-11.0) K/uL RBC 4.17 L (4.30-5.90) M/uL Hgb 12.8 (12.0-16.0) g/dL Hct 37.2 (36.0-46.0) % MCV 89.2 (80.0-98.0) fL MCH 30.7 (27.0-32.0) pg MCHC 34.4 (31.0-37.0) g/dL RDW Std Deviation 39.6 (28.0-62.0) fl RDW Coeff of Noe 12 (11.0-15.0) % Plt Count 422 H (150-400) K/uL MPV 9.60 (7.40-12.00) fL Neut % (Auto) 82.5 H (48.0-80.0) % Lymph % (Auto) 11.4 L (16.0-40.0) % [place] % (Auto) 6.1 (0.0-15.0) % Eos % (Auto) 0.0 (0.0-7.0) % Baso % (Auto) 0.0 (0.0-1.5) % Neut # (Auto) 7.3 H (1.4-5.7) K/uL Lymph # (Auto) 1.0 (0.6-2.4) K/uL [place] # (Auto) 0.5 (0.0-0.8) K/uL Eos # (Auto) 0.0 (0.0-0.7) K/uL Baso # (Auto) 0.0 (0.0-0.1) K/uL Nucleated RBC % 0.0 /100WBC Nucleated RBCs # 0 K/uL Sodium 143 (136-145) mmol/L Potassium 3.5 (3.5-5.1) mmol/L Chloride 107 (98-107) mmol/L Carbon Dioxide 27.8 (21.0-32.0) mmol/L BUN 19 H (7.0-18.0) mg/dL Creatinine 0.9 (0.6-1.0) mg/dL Est Cr Clr Drug Dosing 62.55 mL/min Estimated GFR (MDRD) > 60.0 ml/min Glucose 183 H (74-106) mg/dL Calcium 7.7 L (8.5-10.1) mg/dL Total Bilirubin 0.2 (0.2-1.0) mg/dL AST 14 L (15-37) IU/L ALT 20 (14-63) IU/L Alkaline Phosphatase 59 (46-116) U/L Total Protein 5.9 L (6.4-8.2) g/dL Albumin 2.3 L (3.4-5.0) g/dL Globulin 3.6 (2.6-4.0) g/dL Albumin/Globulin Ratio 0.6 L (0.9-1.6) Med Orders - Current: Current Medications Acetaminophen (Acetaminophen 325 Mg Tab) 325 mg PO Q4H PRN PRN Reason: Pain Last Admin: 11/28/20 13:40 Dose: 325 mg Documented by: Albuterol/Ipratropium (Albuterol/Ipratropium 3.0-0.5 Mg/3 Ml Neb Soln) 3 ml NEB Q4HRRT PRN PRN Reason: Shortness Of Breath/wheezing Last Admin: 12/03/20 07:41 Dose: 3 ml Documented by: Baricitinib (Baricitinib 2 Mg Tab) 4 mg PO BEDTIME NONA Last Admin: 12/02/20 20:17 Dose: 4 mg Documented by: Dexamethasone (Dexamethasone 4 Mg Tab) 6 mg PO Q24H NONA Last Admin: 12/02/20 15:25 Dose: 6 mg Documented by: Enoxaparin Sodium (Enoxaparin 40 Mg/0.4 Ml Syringe) 40 mg SUBCUT BEDTIME NONA Last Admin: 12/02/20 20:17 Dose: 40 mg Documented by: Ceftriaxone Sodium/Dextrose (Rocephin In Dextrose,Iso-Osm 1 Gm/50 Ml) 50 mls @ 100 mls/hr IV Q24H NONA Last Admin: 12/02/20 20:17 Dose: 100 mls/hr Documented by: Ibuprofen (Ibuprofen 200 Mg Tab) 200 mg PO Q6H PRN PRN Reason: Pain Discontinued Medications Albuterol/Ipratropium (Albuterol/Ipratropium 3.0-0.5 Mg/3 Ml Neb Soln) 3 ml NEB ONETIME ONE Stop: 11/27/20 16:50 Last Admin: 11/27/20 16:59 Dose: 3 ml Documented by: Albuterol/Ipratropium (Albuterol/Ipratropium 3.0-0.5 Mg/3 Ml Neb Soln) 3 ml NEB ONETIME ONE Stop: 11/27/20 16:50 Last Admin: 11/27/20 16:59 Dose: 3 ml Documented by: Albuterol/Ipratropium (Albuterol/Ipratropium 3.0-0.5 Mg/3 Ml Neb Soln) 3 ml NEB ONETIME ONE Stop: 11/27/20 16:50 Last Admin: 11/27/20 16:59 Dose: 3 ml Documented by: Dexamethasone (Dexamethasone 10 Mg/Ml Sdv) 10 mg IVPUSH ONETIME ONE Stop: 11/27/20 16:49 Last Admin: 11/27/20 17:09 Dose: 10 mg Documented by: Dexamethasone (Dexamethasone 0.5 Mg Tab) 6 mg PO Q24H NONA Last Admin: 11/28/20 18:38 Dose: Not Given Documented by: Sodium Chloride (Normal Saline) 1,000 mls @ 999 mls/hr IV BOLUS ONE Stop: 11/27/20 17:47 Last Admin: 11/27/20 16:58 Dose: 999 mls/hr Documented by: Magnesium Sulfate 3 gm/ (Dextrose/Water) 106 mls @ 212 mls/hr IV STAT STA Stop: 11/27/20 17:25 Last Admin: 11/27/20 17:13 Dose: 212 mls/hr Documented by: Remdesivir 200 mg/ Sodium (Chloride) 250 mls @ 250 mls/hr IV ONETIME ONE Stop: 11/27/20 19:51 Last Admin: 11/27/20 23:08 Dose: 250 mls/hr Documented by: Remdesivir 100 mg/ Sodium (Chloride) 100 mls @ 100 mls/hr IV Q24H NONA Stop: 12/01/20 16:59 Last Admin: 12/01/20 16:12 Dose: 100 mls/hr Documented by: Iopamidol (Iopamidol 755 Mg/Ml 500 Ml Multipack Bottle) 100 ml IVPUSH ONETIME STA Stop: 11/27/20 18:19 Last Admin: 11/28/20 04:01 Dose: Not Given Documented by: Potassium Chloride (Potassium Chloride 20 Meq Tab.Er) 40 meq PO ONETIME ONE Stop: 11/28/20 10:16 Last Admin: 11/28/20 11:04 Dose: 40 meq Documented by: - Exam Quality Assessment: Supplemental Oxygen General: Alert, Oriented Neck: Supple Lungs: Normal Respiratory Effort, Decreased Breath Sounds, Rales Cardiovascular: Regular Rate, Regular Rhythm GI/Abdominal Exam: Normal Bowel Sounds, Soft, Non-Tender - Patient Data Lab Results Last 24 hrs: Laboratory Results - last 24 hr 12/03/20 12/03/20 Range/Units 06:18 06:18 WBC 8.86 (4.0-11.0) K/uL RBC 4.17 L (4.30-5.90) M/uL Hgb 12.8 (12.0-16.0) g/dL Hct 37.2 (36.0-46.0) % MCV 89.2 (80.0-98.0) fL MCH 30.7 (27.0-32.0) pg MCHC 34.4 (31.0-37.0) g/dL RDW Std Deviation 39.6 (28.0-62.0) fl RDW Coeff of Noe 12 (11.0-15.0) % Plt Count 422 H (150-400) K/uL MPV 9.60 (7.40-12.00) fL Neut % (Auto) 82.5 H (48.0-80.0) % Lymph % (Auto) 11.4 L (16.0-40.0) % [place] % (Auto) 6.1 (0.0-15.0) % Eos % (Auto) 0.0 (0.0-7.0) % Baso % (Auto) 0.0 (0.0-1.5) % Neut # (Auto) 7.3 H (1.4-5.7) K/uL Lymph # (Auto) 1.0 (0.6-2.4) K/uL [place] # (Auto) 0.5 (0.0-0.8) K/uL Eos # (Auto) 0.0 (0.0-0.7) K/uL Baso # (Auto) 0.0 (0.0-0.1) K/uL Nucleated RBC % 0.0 /100WBC Nucleated RBCs # 0 K/uL Sodium 143 (136-145) mmol/L Potassium 3.5 (3.5-5.1) mmol/L Chloride 107 (98-107) mmol/L Carbon Dioxide 27.8 (21.0-32.0) mmol/L BUN 19 H (7.0-18.0) mg/dL Creatinine 0.9 (0.6-1.0) mg/dL Est Cr Clr Drug Dosing 62.55 mL/min Estimated GFR (MDRD) > 60.0 ml/min Glucose 183 H (74-106) mg/dL Calcium 7.7 L (8.5-10.1) mg/dL Total Bilirubin 0.2 (0.2-1.0) mg/dL AST 14 L (15-37) IU/L ALT 20 (14-63) IU/L Alkaline Phosphatase 59 (46-116) U/L Total Protein 5.9 L (6.4-8.2) g/dL Albumin 2.3 L (3.4-5.0) g/dL Globulin 3.6 (2.6-4.0) g/dL Albumin/Globulin Ratio 0.6 L (0.9-1.6) Result Diagrams: 12/03/20 06:18 12/03/20 06:18 Sepsis Event Note - Evaluation Sepsis Screening Result: No Definite Risk - Focused Exam Vital Signs: Vital Signs Temp Resp BP Pulse Ox 12/03/20 13:00 36.4 C 18 95 12/03/20 12:00 15 155/80 H 94 L 12/03/20 11:00 14 146/80 H 95 12/03/20 10:00 14 96 12/03/20 09:00 16 125/81 95 12/03/20 08:00 36.6 C 21 H 122/69 97 12/03/20 07:00 18 131/71 95 12/03/20 06:00 17 115/76 95 12/03/20 05:00 26 H 94 L 12/03/20 04:00 36.4 C 27 H 123/72 93 L 12/03/20 03:00 19 114/61 95 12/03/20 02:00 15 127/67 95 - Problem List & Annotations (1) Acute respiratory failure SNOMED Code(s): 90385145 Code(s): J96.00 - ACUTE RESPIRATORY FAILURE, UNSP W HYPOXIA OR HYPERCAPNIA Status: Acute Current Visit: Yes Qualifiers: Respiratory failure complication: hypoxia Qualified Code(s): J96.01 - Acute respiratory failure with hypoxia (2) COVID-19 virus infection SNOMED Code(s): 986553592 Code(s): U07.1 - COVID-19 Status: Acute Current Visit: Yes (3) Hypoxia SNOMED Code(s): 108960443 Code(s): R09.02 - HYPOXEMIA Status: Acute Current Visit: Yes (4) Gastroenteritis due to COVID-19 virus SNOMED Code(s): 867650211 Code(s): U07.1 - COVID-19; A08.39 - OTHER VIRAL ENTERITIS Status: Acute Current Visit: No - Problem List Review Problem List Initiated/Reviewed/Updated: Yes - Plan Plan:: Acute hypoxic respiratory failure from COVID-19 pneumonia Currently on regualr high flow, 6 L remdesivir completed, dexamethasone, barcitinib, and lovenox for DVT prophylaxis UTI- Rocephin 1g q24hr for 5 days total
[2020-12-03] MEDS: Acetaminophen 325 MG Tab PO PRN (14:34)
[2020-12-03] MEDS: Dexamethasone 4 MG Tab PO SCH (16:42)
[2020-12-03] MEDS: Enoxaparin 40 MG/0.4 ML Syringe SUBCUT SCH (20:03)
[2020-12-04 06:40] LABS: BLOOD UREA NITROGEN,BUN 17 mg/dL (7.0-18.0); CARBON DIOXIDE,CO2 28.6 mmol/L (21.0-32.0); CHLORIDE,CL 107 mmol/L (98-107); GLUCOSE RANDOM 178 mg/dL (74-106); POTASSIUM,K 4.3 mmol/L (3.5-5.1); SODIUM,NA 143 mmol/L (136-145)
[2020-12-04] MEDS: Acetaminophen 325 MG Tab PO PRN (09:47)
--- NOTE | 2020-12-04 12:24 | PCM.DCSUM1 ---
Discharge Summary - Hospital Course Diagnosis: Stroke: No - Discharge Data Discharge Disposition: Home, Self-Care 01 Condition: Fair - Referral to Home Health Primary Care Physician: PCP None - Discharge Diagnosis/Problem(s) (1) Acute respiratory failure SNOMED Code(s): 33315208 ICD Code: J96.00 - ACUTE RESPIRATORY FAILURE, UNSP W HYPOXIA OR HYPERCAPNIA Status: Acute Current Visit: Yes Qualifiers: Respiratory failure complication: hypoxia Qualified Code(s): J96.01 - Acute respiratory failure with hypoxia (2) COVID-19 virus infection SNOMED Code(s): 268002151 ICD Code: U07.1 - COVID-19 Status: Acute Current Visit: Yes (3) Hypoxia SNOMED Code(s): 491593219 ICD Code: R09.02 - HYPOXEMIA Status: Acute Current Visit: Yes (4) Gastroenteritis due to COVID-19 virus SNOMED Code(s): 729795600 ICD Code: U07.1 - COVID-19; A08.39 - OTHER VIRAL ENTERITIS Status: Acute Current Visit: No - Patient Instructions Diet: Usual Diet as Tolerated Driving: May Drive Today Showering/Bathing: May Shower Notify Provider of: Fever, Increased Pain, Swelling and Redness, Drainage, Nausea and/or Vomiting Other/Special Instructions: return to ER if increasing SOB, chest pain or increasing oxygen requirements - Discharge Plan *PRESCRIPTION DRUG MONITORING PROGRAM REVIEWED*: No *COPY OF PRESCRIPTION DRUG MONITORING REPORT IN PATIENT ZORA: No Prescriptions/Med Rec: dexAMETHasone [Dexamethasone] 6 mg PO Q24H #5 tablet Albuterol/Ipratropium [DuoNeb 3.0-0.5 MG/3 ML] 3 ml NEB Q4HRRT PRN #1 neb PRN Reason: Shortness Of Breath/wheezing levoFLOXacin [Levaquin] 750 mg PO DAILY #5 tab Home Medications: Home Meds Ondansetron [Zofran ODT] 4 mg PO Q6H PRN #8 tab.dis 11/22/20 [Rx] Albuterol/Ipratropium [DuoNeb 3.0-0.5 MG/3 ML] 3 ml NEB Q4HRRT PRN #1 neb 12/04/20 [Rx] dexAMETHasone [Dexamethasone] 6 mg PO Q24H #5 tablet 12/04/20 [Rx] levoFLOXacin [Levaquin] 750 mg PO DAILY #5 tab 12/04/20 [Rx] Oxygen Therapy Mode: Nasal Cannula Patient Handouts: COVID-19, Frequently Asked Questions About COVID-[address] [facility] [place] (08/01/2020), Infection Prevention in the Home Referrals: PCP,None [Primary Care Provider] - - Patient Data Vitals - Most Recent: Last Vital Signs Temp 35.7 C L 12/04/20 08:00 Pulse 69 12/04/20 08:00 Resp 2 L 12/04/20 08:00 BP 139/73 12/04/20 08:00 Pulse Ox 95 12/04/20 08:00 Weight - Most Recent: 96.207 kg I&O - Last 24 hours: Intake & Output 12/03/20 12/04/20 12/04/20 22:59 06:59 14:59 Intake Total 960 840 Output Total 1100 1750 Balance -140 -910 Lab Results - Last 24 hrs: Laboratory Results - last 24 hr 12/04/20 12/04/20 Range/Units 05:45 05:45 WBC 8.68 (4.0-11.0) K/uL RBC 4.23 L (4.30-5.90) M/uL Hgb 13.1 (12.0-16.0) g/dL Hct 37.9 (36.0-46.0) % MCV 89.6 (80.0-98.0) fL MCH 31.0 (27.0-32.0) pg MCHC 34.6 (31.0-37.0) g/dL RDW Std Deviation 40.3 (28.0-62.0) fl RDW Coeff of Noe 13 (11.0-15.0) % Plt Count 442 H (150-400) K/uL MPV 10.00 (7.40-12.00) fL Neut % (Auto) 85.0 H (48.0-80.0) % Lymph % (Auto) 9.8 L (16.0-40.0) % [place] % (Auto) 5.0 (0.0-15.0) % Eos % (Auto) 0.1 (0.0-7.0) % Baso % (Auto) 0.1 (0.0-1.5) % Neut # (Auto) 7.4 H (1.4-5.7) K/uL Lymph # (Auto) 0.9 (0.6-2.4) K/uL [place] # (Auto) 0.4 (0.0-0.8) K/uL Eos # (Auto) 0.0 (0.0-0.7) K/uL Baso # (Auto) 0.0 (0.0-0.1) K/uL Nucleated RBC % 0.0 /100WBC Nucleated RBCs # 0 K/uL Sodium 143 (136-145) mmol/L Potassium 4.3 (3.5-5.1) mmol/L Chloride 107 (98-107) mmol/L Carbon Dioxide 28.6 (21.0-32.0) mmol/L BUN 17 (7.0-18.0) mg/dL Creatinine 0.8 (0.6-1.0) mg/dL Est Cr Clr Drug Dosing 70.37 mL/min Estimated GFR (MDRD) > 60.0 ml/min Glucose 178 H (74-106) mg/dL Calcium 7.8 L (8.5-10.1) mg/dL Total Bilirubin 0.2 (0.2-1.0) mg/dL AST 18 (15-37) IU/L ALT 21 (14-63) IU/L Alkaline Phosphatase 57 (46-116) U/L Total Protein 6.0 L (6.4-8.2) g/dL Albumin 2.3 L (3.4-5.0) g/dL Globulin 3.7 (2.6-4.0) g/dL Albumin/Globulin Ratio 0.6 L (0.9-1.6) Med Orders - Current: Current Medications Acetaminophen (Acetaminophen 325 Mg Tab) 325 mg PO Q4H PRN PRN Reason: Pain Last Admin: 12/04/20 09:47 Dose: 325 mg Documented by: Albuterol/Ipratropium (Albuterol/Ipratropium 3.0-0.5 Mg/3 Ml Neb Soln) 3 ml NEB Q4HRRT PRN PRN Reason: Shortness Of Breath/wheezing Last Admin: 12/03/20 07:41 Dose: 3 ml Documented by: Baricitinib (Baricitinib 2 Mg Tab) 4 mg PO BEDTIME NONA Last Admin: 12/03/20 20:03 Dose: 4 mg Documented by: Dexamethasone (Dexamethasone 4 Mg Tab) 6 mg PO Q24H NONA Last Admin: 12/03/20 16:42 Dose: 6 mg Documented by: Enoxaparin Sodium (Enoxaparin 40 Mg/0.4 Ml Syringe) 40 mg SUBCUT BEDTIME NONA Last Admin: 12/03/20 20:03 Dose: 40 mg Documented by: Ceftriaxone Sodium/Dextrose (Rocephin In Dextrose,Iso-Osm 1 Gm/50 Ml) 50 mls @ 100 mls/hr IV Q24H [facility] Last Admin: 12/03/20 19:56 Dose: 100 mls/hr Documented by: Ibuprofen (Ibuprofen 200 Mg Tab) 200 mg PO Q6H PRN PRN Reason: Pain Discontinued Medications Albuterol/Ipratropium (Albuterol/Ipratropium 3.0-0.5 Mg/3 Ml Neb Soln) 3 ml NEB ONETIME ONE Stop: 11/27/20 16:50 Last Admin: 11/27/20 16:59 Dose: 3 ml Documented by: Albuterol/Ipratropium (Albuterol/Ipratropium 3.0-0.5 Mg/3 Ml Neb Soln) 3 ml NEB ONETIME ONE Stop: 11/27/20 16:50 Last Admin: 11/27/20 16:59 Dose: 3 ml Documented by: Albuterol/Ipratropium (Albuterol/Ipratropium 3.0-0.5 Mg/3 Ml Neb Soln) 3 ml NEB ONETIME ONE Stop: 11/27/20 16:50 Last Admin: 11/27/20 16:59 Dose: 3 ml Documented by: Dexamethasone (Dexamethasone 10 Mg/Ml Sdv) 10 mg IVPUSH ONETIME ONE Stop: 11/27/20 16:49 Last Admin: 11/27/20 17:09 Dose: 10 mg Documented by: Dexamethasone (Dexamethasone 0.5 Mg Tab) 6 mg PO Q24H [facility] Last Admin: 11/28/20 18:38 Dose: Not Given Documented by: Sodium Chloride (Normal Saline) 1,000 mls @ 999 mls/hr IV BOLUS ONE Stop: 11/27/20 17:47 Last Admin: 11/27/20 16:58 Dose: 999 mls/hr Documented by: Magnesium Sulfate 3 gm/ (Dextrose/Water) 106 mls @ 212 mls/hr IV STAT STA Stop: 11/27/20 17:25 Last Admin: 11/27/20 17:13 Dose: 212 mls/hr Documented by: Remdesivir 200 mg/ Sodium (Chloride) 250 mls @ 250 mls/hr IV ONETIME ONE Stop: 11/27/20 19:51 Last Admin: 11/27/20 23:08 Dose: 250 mls/hr Documented by: Remdesivir 100 mg/ Sodium (Chloride) 100 mls @ 100 mls/hr IV Q24H NONA Stop: 12/01/20 16:59 Last Admin: 12/01/20 16:12 Dose: 100 mls/hr Documented by: Iopamidol (Iopamidol 755 Mg/Ml 500 Ml Multipack Bottle) 100 ml IVPUSH ONETIME STA Stop: 11/27/20 18:19 Last Admin: 11/28/20 04:01 Dose: Not Given Documented by: Potassium Chloride (Potassium Chloride 20 Meq Tab.Er) 40 meq PO ONETIME ONE Stop: 11/28/20 10:16 Last Admin: 11/28/20 11:04 Dose: 40 meq Documented by:
[2020-12-04 15:13] VITALS: BP 122/71; PULSE 75
== END 2020-12-04 15:50 | disposition home or self-care (01) | DRG 177 ==
LOC: MW.ED 16:37 → MW.MS 19:51 → MW.ICU 11-30 14:39 → MW.MS 12-03 16:15
PROVIDERS: ADMIT Internal Medicine; ATTEND Internal Medicine
PROC: 5A0945A Assistance with Respiratory Ventilation, 24-96 Consecutive Hours, High Flow/Velocity Cannula (ICD-10-PCS; principal; 2020-11-27)
PROC: XW033E5 Introduction of Remdesivir Anti-infective into Peripheral Vein, Percutaneous Approach, New Technology Group 5 (ICD-10-PCS; 2020-11-27)
PROC: 3E0333Z Introduction of Anti-inflammatory into Peripheral Vein, Percutaneous Approach (ICD-10-PCS; 2020-11-27)
PROC: XW0DXM6 Introduction of Baricitinib into Mouth and Pharynx, External Approach, New Technology Group 6 (ICD-10-PCS; 2020-11-27)
PROC: 3E0DX3Z Introduction of Anti-inflammatory into Mouth and Pharynx, External Approach (ICD-10-PCS; 2020-11-27)
DX: U07.1 COVID-19 (principal); J96.01 Acute respiratory failure with hypoxia; J12.82 Pneumonia due to coronavirus disease 2019; A08.39 Other viral enteritis; H54.7 Unspecified visual loss; J45.909 Unspecified asthma, uncomplicated; E66.9 Obesity, unspecified; Z86.16 Personal history of COVID-19; Z86.19 Personal history of other infectious and parasitic diseases; Z79.899 Other long term (current) drug therapy; Z88.8 Allergy status to other drugs, medicaments and biological substances; Z90.49 Acquired absence of other specified parts of digestive tract; Z98.51 Tubal ligation status
CPT/HCPCS: 36415; 36600; 71275; 71275-26; 80053; 80179; 81001; 82803; 83735; 84100; 84484; 85025; 86140; 87086; 87088; 87186; 93005; 93010; 94640; 94660; 96365; 96375; 99284; 99285-25; A9270-GY; J0696; J1100; J1650; J3475; J7030; J7050; J7620-GY; J8540

== ENCOUNTER 2021-01-08 10:00 | Emergency (ER) | payer SELFPAY ==
[2021-01-08] MEDS ORDERED: cefTRIAXone 1 GM Vial IM ONE (10:43)
[2021-01-08] MEDS ORDERED: Phenazopyridine 200 MG Tab PO ONE (10:43)
[2021-01-08 11:23] LABS: CARBON DIOXIDE,CO2 22.9 mmol/L (21.0-32.0); POTASSIUM,K 3.8 mmol/L (3.5-5.1)
--- NOTE | 2021-01-08 11:30 | EDM.PDOC ---
ED HPI GENERAL MEDICAL PROBLEM - General Chief Complaint: Abdominal Pain Stated Complaint: UTI Time Seen by Provider: 01/08/21 10:04 Source of Information: Reports: Patient History Limitations: Reports: No Limitations - History of Present Illness INITIAL COMMENTS - FREE TEXT/NARRATIVE: HISTORY AND PHYSICAL: History of present illness: Patient is a 50-year-old female who presents emergency room today with concern of burning with urination and urinary frequency. Patient states that this has been ongoing for the past 2 to 3 days and states that she did have a urinary tract infection during her last hospital stay and states that she was on antibiotics a few weeks ago. Patient states that she began having the same symptoms over the past 2 to 3 days. Patient denies any flank pain. Denies any other symptoms or concerns. Patient denies fever, chills, chest pain, shortness of breath, or cough. Denies headache, neck stiff ness, change in vision, syncope, or near syncope. Denies nausea, vomiting, abdominal pain, diarrhea, constipation. Has not noted any blood in urine or stool. Patient has been eating and drinking appropriately. Review of systems: As per history of present illness and below otherwise all systems reviewed and negative. Past medical history: As per history of present illness and as reviewed below otherwise noncontributory. Surgical history: As per history of present illness and as reviewed below otherwise noncontributory. Social history: See social history for further information Family history: As per history of present illness and as reviewed below otherwise noncontributory. Physical exam: General: Patient is alert, oriented, and in no acute distress. Patient sitting comfortably on exam table. Vitals stable and reviewed by me. HEENT: Atraumatic, normocephalic, pupils equal and reactive bilaterally, negative for conjunctival pallor or scleral icterus, mucous membranes moist, throat clear, neck supple, nontender, trachea midline. No drooling or trismus noted. No meningeal signs. No hot potato voice noted. Lungs: Clear to auscultation, breath sounds equal bilaterally, chest nontender. Heart: S1S2, regular rate and rhythm without overt murmur Abdomen: Soft, nondistended, mild suprapubic tenderness without guarding, negative rebound/carlson. Negative for masses or hepatosplenomegaly. Negative for costovertebral tenderness. Pelvis: Stable nontender. Genitourinary: Deferred. Rectal: Deferred. Skin: Intact, warm, dry. No lesions or rashes noted. Extremities: Atraumatic, negative for cords or calf pain. Neurovascular unre markable. Neuro: Awake, alert, oriented. Cranial nerves II through XII unremarkable. Cerebellum unremarkable. Motor and sensory unremarkable throughout. Exam nonfocal. Medical Decision Making: Patient is a 50-year-old female who presents emergency room today with concern of possible urinary tract infection. Patient states of the past 2 to 3 days she has had burning with urination and urinary frequency. Upon arrival to the ED, patient is vitally stable and well-appearing on exam. She does have some mild suprapubic tenderness, otherwise negative CVA tenderness and exam otherwise unremarkable. Will obtain basic lab work, and urinalysis, hCG and reassess patient. CBC does show mild leukocytosis of 11.41, otherwise mild derangements of CBC unremarkable. CMP mild derangements unremarkable. Urinalysis does show positive nitrite, positive leukocyte esterase with 41-46 red blood cells, greater than 100 white blood cells and 2+ bacteria. Patient does have positive urine trichomoniasis but negative hCG. (Although patient has negative CVA tenderness on exam and does not have one-sided flank pain, did offer an abdominal pelvic CT scan without contrast for rule out possible ureterolithiasis due to 41-46 red blood cells in her urine, however, patient declines as she does not feel that she has a stone. All risks versus benefits discussed with patient expresses understanding.) On reevaluation of patient, she remains vitally stable and comfortable throughout stay in ED. Strict return precautions thoroughly discussed with patient. Patient does have a recent urinalysis from 11/27/2020 and according to the susceptibility, patient is susceptible to both Rocephin and Bactrim. Patient was given a dose of Rocephin here in the emergency room and we will send her home with Bactrim. We will also send her home with metronidazole due to secondary trichomoniasis in urine. Discussed importance of follow-up with a primary care provider and women's health care provider. Voices understanding and is agreeable to plan of care. Denies any further questions or concerns at this time. Diagnostics: CBC, CMP, UA w culture, cg Therapeutics: Rocephin IM, Pyridium Prescription: Metronidazole, Bactrim DS, Pyridium Impression: Urinary tract infection Trichomonas vaginitis Plan: 1. Take medication as prescribed. You can alternate ibuprofen and Tylenol as directed for pain and discomfort. Your medications have been sent to [facility]. 2. Follow-up with a primary care provider and women's health care provider as discussed. Return to the ED as needed and as discussed. 3. If you desire further STD testing, you can get this done with the women's health care provider or with your primary care provider. Make sure to notify all sexual partners that you have tested positive for trichomoniasis today so that they can also be treated. Definitive disposition and diagnosis as appropriate pending reevaluation and review of above. abdomen/back Pain Score (Numeric/FACES): 7 - Related Data Allergies Allergy/AdvReac Type Severity Reaction Status Date / Time duloxetine Allergy Hypertensio Verified 01/08/21 10:31 n gabapentin Allergy Swelling Verified 01/08/21 10:31 povidone-iodine Allergy Swelling Verified 01/08/21 10:31 [From Betadine] pregabalin [From Lyrica] Allergy Swelling Verified 01/08/21 10:31 soap [From Betadine] Allergy Swelling Verified 01/08/21 10:31 Home Meds: Home Meds Albuterol/Ipratropium [DuoNeb 3.0-0.5 MG/3 ML] 3 ml NEB Q4HRRT PRN #1 neb 12/04/20 [Rx] Cetirizine HCl [Zyrtec] 1 tab PO DAILY 01/08/21 [History] Fexofenadine [Nelida] 1 tab PO DAILY 01/08/21 [History] Phenazopyridine HCl [Pyridium] 200 mg PO TID 2 Days #6 tablet 01/08/21 [Rx] Sulfamethoxazole/Trimethoprim [Bactrim Ds Tablet] 1 each PO BID 14 Days #28 tablet 01/08/21 [Rx] metroNIDAZOLE [Flagyl] 500 mg PO Q12H 7 Days #14 tab 01/08/21 [Rx] Past Medical History - Past Health History Medical/Surgical History: Denies Medical/Surgical History HEENT History: Reports: Other (See Below) Other HEENT History: wears glasses Cardiovascular History: Reports: None Respiratory History: Reports: Asthma Other Respiratory History: seasonal asthma Gastrointestinal History: Reports: None Genitourinary History: Reports: None [employer] DES[employer]ANT History: Reports: Musculoskeletal History: Reports: None Neurological History: Reports: None Psychiatric History: Reports: None Endocrine/Metabolic History: Reports: Obesity/BMI 30+ Hematologic History: Reports: None Immunologic History: Reports: None Oncologic (Cancer) History: Reports: None Dermatologic History: Reports: None - Infectious Disease History Infectious Disease History: Reports: Chicken Pox, Novel Coronavirus - Past Surgical History Head Surgeries/Procedures: Reports: None HEENT Surgical History: Reports: Tonsillectomy Respiratory Surgical History: Reports: None GI Surgical History: Reports: Cholecystectomy Female Surgical History: Reports: Tubal Ligation Endocrine Surgical History: Reports: None Neurological Surgical History: Reports: None Musculoskeletal Surgical History: Reports: Arthroscopic Knee Dermatological Surgical History: Reports: None Social & Family History - Family History Family Medical History: No Pertinent Family History - Caffeine Use Caffeine Use: Reports: Soda - Recreational Drug Use Recreational Drug Use: No ED ROS GENERAL - Review of Systems Review Of Systems: Comprehensive ROS is negative, except as noted in HPI. ED EXAM, GENERAL - Physical Exam Exam: See Below (see dictation) Course - Vital Signs Last Recorded V/S: Last Vital Signs Temp 97.6 F 01/08/21 10:28 Pulse 97 01/08/21 10:36 Resp 18 01/08/21 10:36 BP 141/80 H 01/08/21 10:28 Pulse Ox 94 L 01/08/21 10:36 - Orders/Labs/Meds Orders: Active Orders 24 hr Category Date Time Status CULTURE URINE [MREF] Stat Lab 01/08/21 10:08 Received Labs: Laboratory Tests 01/08/21 01/08/21 01/08/21 Range/Units 10:08 10:08 10:56 WBC 11.41 H (4.0-11.0) K/uL RBC 4.07 L (4.30-5.90) M/uL Hgb 12.9 (12.0-16.0) g/dL Hct 37.7 (36.0-46.0) % MCV 92.6 (80.0-98.0) fL MCH 31.7 (27.0-32.0) pg MCHC 34.2 (31.0-37.0) g/dL RDW Std Deviation 47.0 (28.0-62.0) fl RDW Coeff of Noe 14 (11.0-15.0) % Plt Count 258 (150-400) K/uL MPV 9.50 (7.40-12.00) fL Neut % (Auto) 77.5 (48.0-80.0) % Lymph % (Auto) 14.5 L (16.0-40.0) % [place] % (Auto) 7.2 (0.0-15.0) % Eos % (Auto) 0.6 (0.0-7.0) % Baso % (Auto) 0.2 (0.0-1.5) % Neut # (Auto) 8.9 H (1.4-5.7) K/uL Lymph # (Auto) 1.7 (0.6-2.4) K/uL [place] # (Auto) 0.8 (0.0-0.8) K/uL Eos # (Auto) 0.1 (0.0-0.7) K/uL Baso # (Auto) 0.0 (0.0-0.1) K/uL Nucleated RBC % 0.0 /100WBC Nucleated RBCs # 0 K/uL Sodium (136-145) mmol/L Potassium (3.5-5.1) mmol/L Chloride (98-107) mmol/L Carbon Dioxide (21.0-32.0) mmol/L BUN (7.0-18.0) mg/dL Creatinine (0.6-1.0) mg/dL Est Cr Clr Drug Dosing mL/min Estimated GFR (MDRD) ml/min Glucose (74-106) mg/dL Calcium (8.5-10.1) mg/dL Total Bilirubin (0.2-1.0) mg/dL AST (15-37) IU/L ALT (14-63) IU/L Alkaline Phosphatase (46-116) U/L Total Protein (6.4-8.2) g/dL Albumin (3.4-5.0) g/dL Globulin (2.6-4.0) g/dL Albumin/Globulin Ratio (0.9-1.6) Urine Color YELLOW Urine Appearance CLOUDY Urine pH 6.0 (5.0-8.0) Ur Specific [place] 1.025 (1.001-1.035) Urine Protein 100 H (NEGATIVE) mg/dL Urine Glucose (UA) NEGATIVE (NEGATIVE) mg/dL Urine Ketones NEGATIVE (NEGATIVE) mg/dL Urine Occult Blood MODERATE H (NEGATIVE) Urine Nitrite POSITIVE H (NEGATIVE) Urine Bilirubin NEGATIVE (NEGATIVE) Urine Urobilinogen 0.2 (<2.0) EU/dL Ur Leukocyte Esterase LARGE H (NEGATIVE) Urine RBC 41-46 (0-2/HPF) Urine WBC >100 (0-5/HPF) Ur Epithelial Cells MODERATE (NONE-FEW) Urine Bacteria 2+ H (NEGATIVE) Urine Mucus LIGHT (NONE-MOD) Urine Trichomonas PRESENT (NEGATIVE) Urine HCG, Qual NEGATIVE (NEGATIVE) 01/08/21 Range/Units 10:56 WBC (4.0-11.0) K/uL RBC (4.30-5.90) M/uL Hgb (12.0-16.0) g/dL Hct (36.0-46.0) % MCV (80.0-98.0) fL MCH (27.0-32.0) pg MCHC (31.0-37.0) g/dL RDW Std Deviation (28.0-62.0) fl RDW Coeff of Noe (11.0-15.0) % Plt Count (150-400) K/uL MPV (7.40-12.00) fL Neut % (Auto) (48.0-80.0) % Lymph % (Auto) (16.0-40.0) % [place] % (Auto) (0.0-15.0) % Eos % (Auto) (0.0-7.0) % Baso % (Auto) (0.0-1.5) % Neut # (Auto) (1.4-5.7) K/uL Lymph # (Auto) (0.6-2.4) K/uL [place] # (Auto) (0.0-0.8) K/uL Eos # (Auto) (0.0-0.7) K/uL Baso # (Auto) (0.0-0.1) K/uL Nucleated RBC % /100WBC Nucleated RBCs # K/uL Sodium 143 (136-145) mmol/L Potassium 3.8 (3.5-5.1) mmol/L Chloride 107 (98-107) mmol/L Carbon Dioxide 22.9 (21.0-32.0) mmol/L BUN 10 (7.0-18.0) mg/dL Creatinine 1.0 (0.6-1.0) mg/dL Est Cr Clr Drug Dosing 56.29 mL/min Estimated GFR (MDRD) 58.9 ml/min Glucose 107 H (74-106) mg/dL Calcium 8.7 (8.5-10.1) mg/dL Total Bilirubin 0.4 (0.2-1.0) mg/dL AST 14 L (15-37) IU/L ALT 23 (14-63) IU/L Alkaline Phosphatase 85 (46-116) U/L Total Protein 7.5 (6.4-8.2) g/dL Albumin 3.2 L (3.4-5.0) g/dL Globulin 4.3 H (2.6-4.0) g/dL Albumin/Globulin Ratio 0.7 L (0.9-1.6) Urine Color Urine Appearance Urine pH (5.0-8.0) Ur Specific [place] (1.001-1.035) Urine Protein (NEGATIVE) mg/dL Urine Glucose (UA) (NEGATIVE) mg/dL Urine Ketones (NEGATIVE) mg/dL Urine Occult Blood (NEGATIVE) Urine Nitrite (NEGATIVE) Urine Bilirubin (NEGATIVE) Urine Urobilinogen (<2.0) EU/dL Ur Leukocyte Esterase (NEGATIVE) Urine RBC (0-2/HPF) Urine WBC (0-5/HPF) Ur Epithelial Cells (NONE-FEW) Urine Bacteria (NEGATIVE) Urine Mucus (NONE-MOD) Urine Trichomonas (NEGATIVE) Urine HCG, Qual (NEGATIVE) Meds: Medications Discontinued Medications Generic Name Dose Route Start Last Admin Trade Name Freq PRN Reason Stop Dose Admin Ceftriaxone Sodium 1 gm 01/08/21 10:43 01/08/21 11:07 Ceftriaxone 1 Gm Vial IM 01/08/21 10:44 1 gm ONETIME ONE Administration Phenazopyridine HCl 200 mg 01/08/21 10:43 01/08/21 11:07 Phenazopyridine 200 Mg Tab PO 01/08/21 10:44 200 mg ONETIME ONE Administration Departure - Departure Time of Disposition: 11:27 Disposition: Home, Self-Care 01 Clinical Impression: Trichomoniasis, urogenital, Urinary tract infection - Discharge Information Prescriptions: Sulfamethoxazole/Trimethoprim [Bactrim Ds Tablet] 1 each PO BID 14 Days #28 tablet metroNIDAZOLE [Flagyl] 500 mg PO Q12H 7 Days #14 tab Phenazopyridine HCl [Pyridium] 200 mg PO TID 2 Days #6 tablet Referrals: Layton Hastings MD [Primary Care Provider] - Forms: ED Department Discharge Additional Instructions: The following information is given to patients seen in the emergency department who are being discharged to home. This information is to outline your options for follow-up care. We provide all patients seen in our emergency department with a follow-up referral. The need for follow-up, as well as the timing and circumstances, are variable depending upon the specifics of your emergency department visit. If you don't have a primary care physician on staff, we will provide you with a referral. We always advise you to contact your personal physician following an emergency department visit to inform them of the circumstance of the visit and for follow-up with them and/or the need for any referrals to a consulting specialist. The emergency department will also refer you to a specialist when appropriate. This referral assures that you have the opportunity for follow-up care with a specialist. All of these measure are taken in an effort to provide you with optimal care, which includes your follow-up. Under all circumstances we always encourage you to contact your private physician who remains a resource for coordinating your care. When calling for follow-up care, please make the office aware that this follow-up is from your recent emergency room visit. If for any reason you are refused follow-up, please contact the [facility] Emergency Department at and asked to speak to the emergency department charge nurse. [facility] [address] [place] [id number] [facility] [address] [place] [address] [facility] [address] [place] [address] 1. Take medication as prescribed. You can alternate ibuprofen and Tylenol as directed for pain and discomfort. Your medications have been sent to [facility]. 2. Follow-up with a primary care provider and women's health care provider as discussed. Return to the ED as needed and as discussed. 3. If you desire further STD testing, you can get this done with the women's health care provider or with your primary care provider. Make sure to notify all sexual partners that you have tested positive for trichomoniasis today so that they can also be treated. Sepsis Event Note (ED) - Evaluation Sepsis Screening Result: No Definite Risk - Focused Exam Vital Signs: Vital Signs Temp Pulse Resp BP Pulse Ox 01/08/21 10:36 97 18 94 L 01/08/21 10:28 97.6 F 112 H 18 141/80 H 95 - My Orders Last 24 Hours: My Active Orders 01/08/21 10:08 CULTURE URINE [MREF] Stat - Assessment/Plan Last 24 Hours: My Active Orders 01/08/21 10:08 CULTURE URINE [MREF] Stat
[2021-01-08 16:39] VITALS: BP 140/93; PULSE 82
--- NOTE | 2021-01-12 07:57 | PCM.SN.2 ---
- Free Text/Narrative Note: Patient's urine culture reveals resistance to TMP/SMX. Patient's urine culture is sensitive to Nitrofurantoin. I called and spoke with Ms. Murray at 0755AM on 01/12/2021 to discuss the urine culture results. She states she is feeling better, but I explained to her that this particular infection is resistant to TMP/SMX, and while some of the infection may have cleared up, it is likely to recur without switching to a more appropriate antibiotic. I have called Ray to [facility] for this patient, and she understands the importance of discontinuing the TMP/SMX and starting macrobid today. She had no additional questions.
== END 2021-01-08 11:42 | disposition home or self-care (01) ==
LOC: MW.ED 10:00
DX: N39.0 Urinary tract infection, site not specified (principal); A59.01 Trichomonal vulvovaginitis; J45.909 Unspecified asthma, uncomplicated; E66.9 Obesity, unspecified; Z68.37 Body mass index [BMI] 37.0-37.9, adult; Z88.8 Allergy status to other drugs, medicaments and biological substances; Z88.6 Allergy status to analgesic agent; Z79.899 Other long term (current) drug therapy
CPT/HCPCS: 36415; 80053; 81001; 81025; 85025; 87086; 96372; 99283; A9270; J0696; 87088; 87186

== ENCOUNTER 2021-02-23 10:55 | Emergency (ER) | payer SELFPAY ==
--- NOTE | 2021-02-23 11:03 | EDM.PDOC ---
ED HPI GENERAL MEDICAL PROBLEM - General Chief Complaint: Respiratory Problem Stated Complaint: "REALLY BAD COUGH" PREV HAD COVID 3 MONTHS AGO Time Seen by Provider: 02/23/21 11:00 Source of Information: Reports: Patient History Limitations: Reports: No Limitations - History of Present Illness INITIAL COMMENTS - FREE TEXT/NARRATIVE: 50-year-old female past medical history COVID-19 infection roughly 3 months ago presents for cough. Patient states that she recovered well from Covid but over the last 3 days has developed a nonproductive cough. She does note some shortness of breath which is worse at night. She denies any fevers. No productive cough. Denies any chest pain. - Related Data Allergies Allergy/AdvReac Type Severity Reaction Status Date / Time duloxetine Allergy Hypertensio Verified 02/23/21 11:10 n gabapentin Allergy Swelling Verified 02/23/21 11:10 povidone-iodine Allergy Swelling Verified 02/23/21 11:10 [From Betadine] pregabalin [From Lyrica] Allergy Swelling Verified 02/23/21 11:10 soap [From Betadine] Allergy Swelling Verified 02/23/21 11:10 Home Meds: Home Meds Albuterol/Ipratropium [DuoNeb 3.0-0.5 MG/3 ML] 3 ml NEB Q4HRRT PRN #1 neb 12/04/20 [Rx] Cetirizine HCl [Zyrtec] 1 tab PO DAILY 01/08/21 [History] Nitrofurantoin Monohyd/M-Cryst [Macrobid 100 mg Capsule] 100 mg PO BID 7 Days #14 capsule 01/12/21 [Rx] Past Medical History - Past Health History Medical/Surgical History: Denies Medical/Surgical History HEENT History: Reports: Other (See Below) Other HEENT History: wears glasses Cardiovascular History: Reports: None Respiratory History: Reports: Asthma Other Respiratory History: seasonal asthma Gastrointestinal History: Reports: None Genitourinary History: Reports: None [employer] History: Reports: Musculoskeletal History: Reports: None Neurological History: Reports: None Psychiatric History: Reports: None Endocrine/Metabolic History: Reports: Obesity/BMI 30+ Hematologic History: Reports: None Immunologic History: Reports: None Oncologic (Cancer) History: Reports: None Dermatologic History: Reports: None - Infectious Disease History Infectious Disease History: Reports: Chicken Pox, Novel Coronavirus - Past Surgical History Head Surgeries/Procedures: Reports: None HEENT Surgical History: Reports: Tonsillectomy Respiratory Surgical History: Reports: None GI Surgical History: Reports: Cholecystectomy Female Surgical History: Reports: Tubal Ligation Endocrine Surgical History: Reports: None Neurological Surgical History: Reports: None Musculoskeletal Surgical History: Reports: Arthroscopic Knee Dermatological Surgical History: Reports: None Social & Family History - Family History Family Medical History: No Pertinent Family History - Caffeine Use Caffeine Use: Reports: Soda ED ROS GENERAL - Review of Systems Review Of Systems: Comprehensive ROS is negative, except as noted in HPI. ED EXAM, GENERAL - Physical Exam Exam: See Below Exam Limited By: No Limitations General Appearance: Alert, WD/WN, No Apparent Distress Ears: Hearing Grossly Normal Throat/Mouth: Normal Voice, No Airway Compromise Head: Atraumatic, Normocephalic Respiratory/Chest: No Respiratory Distress, Lungs Clear, Normal Breath Sounds, No Accessory Muscle Use Cardiovascular: Normal Peripheral Pulses, Regular Rate, Rhythm Extremities: Normal Inspection Neurological: Alert, Normal Cognition, Normal Gait Psychiatric: Normal Affect, Normal Mood Skin Exam: Warm, Dry, Intact, Normal Color Course - Vital Signs Last Recorded V/S: Last Vital Signs Temp 97.1 F 02/23/21 11:07 Pulse 86 02/23/21 11:07 Resp 19 02/23/21 11:07 BP 136/86 02/23/21 11:07 Pulse Ox 95 02/23/21 11:07 - Orders/Labs/Meds Labs: Laboratory Tests 02/23/21 Range/Units 11:21 Influenza Type A RNA NEGATIVE (NEGATIVE) Influenza Type B RNA NEGATIVE (NEGATIVE) SARS-CoV-2 RNA (HAILEE) POSITIVE H (NEGATIVE) - Re-Assessments/Exams Free Text/Narrative Re-Assessment/Exam: 02/23/21 11:19 Vital signs are normal and physical exam is unremarkable. Will get chest x-ray, Covid swab, influenza swab. 02/23/21 12:54 Covid test is positive, chest x-ray is normal. I am uncertain if this is a new Covid infection or residual from patient's prior Covid infection. Patient notes that her daughter called her while she was waiting for chest x-ray results and said that she just tested positive for Covid. Patient lives with her daughter. We will treat this like it is a new infection. Patient's been asked to isola te. I have offered the patient monoclonal antibody infusion although she is uncertain if she wants it. She will be placed on the list. Departure - Departure Time of Disposition: 12:54 Disposition: Home, Self-Care 01 Condition: Good Clinical Impression: COVID-19 - Discharge Information Instructions: COVID-19: What to Do If You Are Sick- [facility] (05/03/2020) Referrals: Layton Hastings MD [Primary Care Provider] - Forms: ED Department Discharge Additional Instructions: If your symptoms worsen please come back to the emergency department for reassessment. You have been placed on the list for the monoclonal antibody infusion although this does not commit you to getting the infusion. Please isolate until cleared by the [facility] which would be 5 days from today. The following information is given to patients seen in the emergency department who are being discharged to home. This information is to outline your options for follow-up care. We provide all patients seen in our emergency department with a follow-up referral. The need for follow-up, as well as the timing and circumstances, are variable depending upon the specifics of your emergency department visit. If you don't have a primary care physician on staff, we will provide you with a referral. We always advise you to contact your personal physician following an emergency department visit to inform them of the circumstance of the visit and for follow-up with them and/or the need for any referrals to a consulting specialist. The emergency department will also refer you to a specialist when appropriate. This referral assures that you have the opportunity for follow-up care with a specialist. All of these measure are taken in an effort to provide you with optimal care, which includes your follow-up. Under all circumstances we always encourage you to contact your private physician who remains a resource for coordinating your care. When calling for follow-up care, please make the office aware that this follow-up is from your recent emergency room visit. If for any reason you are refused follow-up, please contact the [facility] Emergency Department at and asked to speak to the emergency department charge nurse. Please follow up with your primary care physician. If you do not have a primary care physician, see below: [facility] [address] [place] [id number] [facility] [address] [place] [address] [facility] [address] [place] [address] Sepsis Event Note (ED) - Focused Exam Vital Signs: Vital Signs Temp Pulse Resp BP Pulse Ox 02/23/21 11:07 97.1 F 86 19 136/86 95
[2021-02-23 12:03] LABS: CORONAVIRUS COVID-19 NAA POSITIVE (NEGATIVE); INFLUENZA A NAA NEGATIVE (NEGATIVE); INFLUENZA B NAA NEGATIVE (NEGATIVE)
--- NOTE | 2021-02-23 12:34 | CR ---
INDICATION: Cough. COMPARISON: Chest x-ray dated 22 November 2020. FINDINGS: A single portable chest x-ray shows a normal cardiac silhouette. The lungs show no focal pulmonary opacities. Sharp pleural margins. No pneumothorax. IMPRESSION: No evidence of acute pulmonary abnormalities. Dictated by Tevin Mendez MD @ 02/23/2021 12:33:30 PM (Electronically Signed)
[2021-02-23 13:12] VITALS: BP 148/62; PULSE 78
== END 2021-02-23 13:12 | disposition home or self-care (01) ==
LOC: MW.ED 10:55
DX: U07.1 COVID-19 (principal); E66.9 Obesity, unspecified; Z68.42 Body mass index [BMI] 45.0-49.9, adult; Z88.5 Allergy status to narcotic agent; Z91.048 Other nonmedicinal substance allergy status; Z88.8 Allergy status to other drugs, medicaments and biological substances
CPT/HCPCS: 0240U; 71045; 99283

== ENCOUNTER 2021-05-13 19:32 | Emergency (ER) | payer SELFPAY ==
[2021-05-13 19:45] VITALS: BP 145/91; PULSE 84
[2021-05-13] MEDS ORDERED: Acetaminophen/oxyCODONE 325-10 MG Tab PO STA (19:52)
[2021-05-13] MEDS ORDERED: Clindamycin HCl 150 MG Cap PO ONE (19:53)
== END 2021-05-13 20:03 | disposition home or self-care (01) ==
LOC: MW.ED 19:32
DX: S02.5XXA Fracture of tooth (traumatic), initial encounter for closed fracture (principal); K04.7 Periapical abscess without sinus; E66.9 Obesity, unspecified; J45.909 Unspecified asthma, uncomplicated; Z68.38 Body mass index [BMI] 38.0-38.9, adult; Z88.8 Allergy status to other drugs, medicaments and biological substances; Z91.048 Other nonmedicinal substance allergy status; Z90.09 Acquired absence of other part of head and neck
CPT/HCPCS: 99282; A9270

== ENCOUNTER 2021-06-03 14:58 | Emergency (ER) | payer SELFPAY ==
[2021-06-03] MEDS ORDERED: Acetaminophen/HYDROcodone 325-5 MG Tab PO ONE (15:22)
[2021-06-03 16:42] VITALS: BP 148/88; PULSE 78
== END 2021-06-03 16:43 | disposition home or self-care (01) ==
LOC: MW.ED 14:58
DX: M25.562 Pain in left knee (principal); M25.462 Effusion, left knee; E66.9 Obesity, unspecified; Z68.37 Body mass index [BMI] 37.0-37.9, adult
CPT/HCPCS: 73562; 99283; A9270

== ENCOUNTER 2021-07-31 10:28 | Emergency (ER) | payer SELFPAY ==
[2021-07-31] MEDS ORDERED: Benzocaine 20% Topical Spray UD MUCMEM ONE (10:45)
[2021-07-31] MEDS ORDERED: Lidocaine 2% Viscous Solution 15 ML UD PO ONE (10:45)
[2021-07-31 11:16] VITALS: BP 123/80; PULSE 79
== END 2021-07-31 11:15 | disposition home or self-care (01) ==
LOC: MW.ED 10:28
DX: K04.7 Periapical abscess without sinus (principal); I10 Essential (primary) hypertension; E66.9 Obesity, unspecified; Z68.33 Body mass index [BMI] 33.0-33.9, adult; Z88.8 Allergy status to other drugs, medicaments and biological substances; Z79.899 Other long term (current) drug therapy
CPT/HCPCS: 99282; A9270

== ENCOUNTER 2022-01-24 19:25 | Emergency (ER) | payer SELFPAY ==
[2022-01-24] MEDS ORDERED: Cephalexin 500 MG Cap PO ONE (22:33)
[2022-01-24] MEDS ORDERED: Ibuprofen 600 MG Tab PO ONE (22:33)
[2022-01-24] MEDS ORDERED: traMADol 50 MG Tab PO ONE (22:33)
[2022-01-24 22:52] VITALS: BP 125/78; PULSE 87
== END 2022-01-24 22:40 | disposition home or self-care (01) ==
LOC: MW.ED 19:25
DX: K04.7 Periapical abscess without sinus (principal); K02.9 Dental caries, unspecified; I10 Essential (primary) hypertension; J45.909 Unspecified asthma, uncomplicated; E66.9 Obesity, unspecified; Z68.32 Body mass index [BMI] 32.0-32.9, adult; Z88.8 Allergy status to other drugs, medicaments and biological substances; Z91.048 Other nonmedicinal substance allergy status; Z79.899 Other long term (current) drug therapy
CPT/HCPCS: 99282; A9270

== ENCOUNTER 2022-07-04 12:19 | Emergency (ER) | payer SELFPAY ==
[2022-07-04] MEDS ORDERED: Lidocaine 2% Viscous Solution 15 ML UD PO ONE (12:25)
[2022-07-04] MEDS ORDERED: Benzocaine 20% Topical Spray UD MUCMEM ONE (12:25)
[2022-07-04 12:35] VITALS: BP 125/85; PULSE 79
== END 2022-07-04 12:43 | disposition home or self-care (01) ==
LOC: MW.ED 12:19
DX: K04.7 Periapical abscess without sinus (principal); K02.9 Dental caries, unspecified; I10 Essential (primary) hypertension; J45.909 Unspecified asthma, uncomplicated; E66.9 Obesity, unspecified; Z68.1 Body mass index [BMI] 19.9 or less, adult; Z88.5 Allergy status to narcotic agent; Z88.8 Allergy status to other drugs, medicaments and biological substances; Z86.16 Personal history of COVID-19
CPT/HCPCS: 99282; 99283

== ENCOUNTER 2022-09-10 18:20 | Emergency (ER) | payer SELFPAY ==
[2022-09-10 19:24] VITALS: BP 114/80
[2022-09-10] MEDS ORDERED: Ketorolac 30 MG/ML SDV IVPUSH ONE (19:36)
[2022-09-10] MEDS ORDERED: Metoclopramide 10 MG/2 ML SDV IVPUSH ONE (19:36)
[2022-09-10] MEDS ORDERED: Sodium Chloride 0.9% 1,000 ML IV ONE (19:36)
[2022-09-10 20:26] LABS: BASOPHILS PERCENT AUTO 0.3 % (0.0-1.5); EOSINOPHILS PERCENT AUTO 0.3 % (0.0-7.0); HEMATOCRIT 43.2 % (36.0-46.0); HEMOGLOBIN 14.8 g/dL (12.0-16.0); LYMPHOCYTES ABSOLUTE AUTO 2.6 K/uL (0.6-2.4); LYMPHOCYTES PERCENT AUTO 37.1 % (16.0-40.0); MEAN CORPUSCULAR HGB CONC 34.3 g/dL (31.0-37.0); MEAN CORPUSCULAR VOLUME 90.4 fL (80.0-98.0); MONOCYTES ABSOLUTE AUTO 0.3 K/uL (0.0-0.8); MONOCYTES PERCENT AUTO 4.9 % (0.0-15.0); NEUTROPHILS PERCENT AUTO 57.4 % (48.0-80.0); NRBC ABSOLUTE 0 K/uL; PLATELET COUNT,PLT 314 K/uL (150-400); RED BLOOD CELL COUNT 4.78 M/uL (4.30-5.90); WHITE BLOOD CELL COUNT,WBC 6.99 K/uL (4.0-11.0)
[2022-09-10 21:02] LABS: BILIRUBIN TOTAL 0.4 mg/dL (0.2-1.0); CALCIUM 9.1 mg/dL (8.5-10.1); CARBON DIOXIDE,CO2 25.7 mmol/L (21.0-32.0); CREATININE 0.8 mg/dL (0.6-1.0); EST CRCL DRUG DOSING (CG) 69.59 mL/min; POTASSIUM,K 3.6 mmol/L (3.5-5.1); PROTEIN TOTAL,TP 7.9 g/dL (6.4-8.2)
[2022-09-10 21:41] VITALS: PULSE 63
== END 2022-09-10 21:39 | disposition home or self-care (01) ==
LOC: MW.ED 18:20
DX: R51.9 Headache, unspecified (principal); R11.2 Nausea with vomiting, unspecified; R19.7 Diarrhea, unspecified; K08.89 Other specified disorders of teeth and supporting structures; I10 Essential (primary) hypertension; J45.909 Unspecified asthma, uncomplicated; E66.9 Obesity, unspecified; Z68.37 Body mass index [BMI] 37.0-37.9, adult; Z88.8 Allergy status to other drugs, medicaments and biological substances; Z79.899 Other long term (current) drug therapy; Z86.16 Personal history of COVID-19
CPT/HCPCS: 36415; 80053; 85025; 96361; 96374; 96375; 99284; J1885; J2765; J7030

== ENCOUNTER 2022-10-23 20:43 | Emergency (ER) | payer SELFPAY ==
[2022-10-23] MEDS ORDERED: Acetaminophen 325 MG Tab PO ONE (21:37)
[2022-10-23] MEDS ORDERED: Ibuprofen 400 MG Tab PO ONE (21:37)
[2022-10-23 23:50] VITALS: BP 130/78; PULSE 82
== END 2022-10-23 23:30 | disposition home or self-care (01) ==
LOC: MW.ED 20:43
DX: S92.311A Displaced fracture of first metatarsal bone, right foot, initial encounter for closed fracture (principal); I10 Essential (primary) hypertension; E66.9 Obesity, unspecified; Z86.16 Personal history of COVID-19; Z79.899 Other long term (current) drug therapy; Z88.8 Allergy status to other drugs, medicaments and biological substances; Z91.048 Other nonmedicinal substance allergy status; Z91.041 Radiographic dye allergy status; W01.0XXA Fall on same level from slipping, tripping and stumbling without subsequent striking against object, initial encounter; Y93.01 Activity, walking, marching and hiking
CPT/HCPCS: 73610; 73630; 99283; A9270

== ENCOUNTER 2023-02-20 17:37 | Emergency (ER) | payer SELFPAY ==
[2023-02-20 20:06] LABS: CORONAVIRUS COVID-19 NAA NEGATIVE (NEGATIVE); INFLUENZA A NAA NEGATIVE (NEGATIVE); INFLUENZA B NAA NEGATIVE (NEGATIVE)
[2023-02-20] MEDS ORDERED: Ondansetron 4 MG Tab.DIS PO ONE (20:17)
[2023-02-20 20:30] VITALS: BP 123/78; PULSE 68
== END 2023-02-20 20:28 | disposition home or self-care (01) ==
LOC: MW.ED 17:37
DX: A08.4 Viral intestinal infection, unspecified (principal); B34.9 Viral infection, unspecified; I10 Essential (primary) hypertension; J45.909 Unspecified asthma, uncomplicated; E66.9 Obesity, unspecified; Z68.38 Body mass index [BMI] 38.0-38.9, adult; Z86.16 Personal history of COVID-19; Z88.8 Allergy status to other drugs, medicaments and biological substances; Z91.048 Other nonmedicinal substance allergy status; Z79.899 Other long term (current) drug therapy; Z20.822 Contact with and (suspected) exposure to COVID-19
CPT/HCPCS: 0240U; 99284; A9270; 99283

== ENCOUNTER 2023-07-07 11:43 | Emergency (ER) | payer SELFPAY ==
[2023-07-07 12:27] LABS: BASOPHILS ABSOLUTE AUTO 0.04 K/uL (0.00-0.20); BASOPHILS PERCENT AUTO 0.5 % (0.0-1.0); EOSINOPHILS ABSOLUTE AUTO 0.07 K/uL (0.00-0.45); EOSINOPHILS PERCENT AUTO 0.8 % (0.0-6.0); HEMATOCRIT 39.8 % (37.0-47.0); IMMATURE GRAN ABSOLUTE AUTO 0.02 K/uL (0.00-0.05); IMMATURE GRAN PERCENT AUTO 0.2 % (0.0-0.4); LYMPHOCYTES ABSOLUTE AUTO 2.77 K/uL (1.00-4.80); LYMPHOCYTES PERCENT AUTO 32.4 % (24.0-44.0); MEAN CORPUSCULAR HEMOGLOBIN 31.4 pg (28.0-32.0); MEAN CORPUSCULAR HGB CONC 35.2 g/dL (32.0-36.0); MEAN CORPUSCULAR VOLUME 89.2 fL (83.0-99.0); NEUTROPHILS ABSOLUTE AUTO 5.06 K/uL (1.80-7.70); NEUTROPHILS PERCENT AUTO 59.1 % (41.0-71.0); PLATELET COUNT,PLT 281 K/uL (150-400); RED BLOOD CELL COUNT 4.46 M/uL (4.10-5.30); WHITE BLOOD CELL COUNT,WBC 8.56 K/uL (3.9-11.3)
[2023-07-07] MEDS: Sodium Chloride 0.9% 1,000 ML IV ONE (12:28)
[2023-07-07] MEDS: Ketorolac 30 MG/ML SDV IVPUSH ONE (12:28)
[2023-07-07] MEDS: Sodium Chloride 0.9% 2.5 ML Syringe FLUSH PRN (12:28)
[2023-07-07] MEDS: Ondansetron 4 MG/2 ML SDV IVPUSH ONE (12:28)
[2023-07-07] MEDS: Metoclopramide 10 MG/2 ML SDV IVPUSH ONE (12:28)
[2023-07-07] MEDS: diphenhydrAMINE 50 MG/ML SDV IVPUSH ONE (12:28)
[2023-07-07] MEDS: Sodium Chloride 0.9% 10 ML Syringe FLUSH PRN (12:29)
[2023-07-07 12:57] LABS: A/G RATIO 0.9 (0.9-1.6); ALBUMIN 3.5 g/dL (3.4-5.0); BILIRUBIN TOTAL 0.3 mg/dL (0.2-1.0); CALCIUM 9.2 mg/dL (8.5-10.1); EST CRCL DRUG DOSING (CG) 55.06 mL/min; POTASSIUM,K 3.6 mmol/L (3.5-5.1); PROTEIN TOTAL,TP 7.5 g/dL (6.4-8.2)
[2023-07-07 13:33] VITALS: BP 129/78; PULSE 69
== END 2023-07-07 13:35 | disposition home or self-care (01) ==
LOC: MW.ED 11:43
DX: R51.9 Headache, unspecified (principal); M25.562 Pain in left knee; E66.9 Obesity, unspecified; I10 Essential (primary) hypertension; Z75.8 Other problems related to medical facilities and other health care; Z88.8 Allergy status to other drugs, medicaments and biological substances; Z91.048 Other nonmedicinal substance allergy status; Z79.899 Other long term (current) drug therapy; Z68.37 Body mass index [BMI] 37.0-37.9, adult
CPT/HCPCS: 73562; 80053; 85025; 96361; 96374; 96375; 99283; J1200; J1885; J2405; J2765; J3490; J7030; 99284

== ENCOUNTER 2023-12-13 12:23 | Emergency (ER) | payer BC ==
[2023-12-13 12:43] VITALS: BP 135/89; PULSE 89
[2023-12-13 13:19] LABS: CORONAVIRUS COVID-19 NAA POSITIVE (NEGATIVE); INFLUENZA A NAA NEGATIVE (NEGATIVE); INFLUENZA B NAA NEGATIVE (NEGATIVE); RESPIRATORY SYNCYTIAL VIR NAA NEGATIVE (NEGATIVE)
== END 2023-12-13 14:51 | disposition home or self-care (01) ==
LOC: MW.ED 12:23
DX: U07.1 COVID-19 (principal); I10 Essential (primary) hypertension; J45.909 Unspecified asthma, uncomplicated; E66.9 Obesity, unspecified; Z68.39 Body mass index [BMI] 39.0-39.9, adult; Z79.899 Other long term (current) drug therapy; Z88.8 Allergy status to other drugs, medicaments and biological substances; Z88.9 Allergy status to unspecified drugs, medicaments and biological substances; Z91.041 Radiographic dye allergy status
CPT/HCPCS: 0241U; 71046; 99283

== ENCOUNTER 2024-07-09 13:49 | Emergency (ER) | payer BC ==
[2024-07-09 14:05] VITALS: BP 150/91; PULSE 92
[2024-07-09] MEDS: Diphtheria,Pertussis(Acell),Tetanus Vaccine 0.5 ML Syringe IM ONE (15:47)
== END 2024-07-09 16:00 | disposition home or self-care (01) ==
LOC: MW.ED 13:49
DX: S60.031A Contusion of right middle finger without damage to nail, initial encounter (principal); Z23 Encounter for immunization; I10 Essential (primary) hypertension; E66.9 Obesity, unspecified; Z79.899 Other long term (current) drug therapy; Z91.048 Other nonmedicinal substance allergy status; Z88.8 Allergy status to other drugs, medicaments and biological substances; W23.1XXA Caught, crushed, jammed, or pinched between stationary objects, initial encounter
CPT/HCPCS: 73140-26-LT; 73140-26-RT; 73140-LT; 73140-RT; 90471; 90715; 99282; 99283-25